=== PATIENT | female | born 1935 | race Caucasian/White ===

== ENCOUNTER → 2017-01-01 | Outpatient (CLI) | payer MEDICARE, MEDICAID ==
[~2017-01-01] MED LIST: ASPI81CH CHEW; ATOR80TA41 PO; CLOP75 PO; ECOT81TA2 PO; HCTZ25 PO; ISOS10TA3 PO; ISOS30 PO; KLOR20TA6 PO; LIPI80TA PO; LOSA100T PO; LOSA50 PO; METO25 PO; METO25TA3 PO; NITR.3 SL; NITR1SUB2 SL; PLAV75TA29 PO; POTA10TA8 PO; RANI150 PO; RANI150C PO; hydrodiuril PO
[2017-01-01 09:41] LABS: BICARBONATE 30.4 MEQ/L (21.0-32.0); POTASSIUM 4.3 MEQ/L (3.5-5.1)
== END ==
LOC: CLAB 08:34
PROVIDERS: ATTEND Internal Medicine Interventional Cardiology
DX: R60.9 Edema, unspecified (principal)
CPT/HCPCS: 36415; 80048

== ENCOUNTER 2017-02-20 22:49 | Observation (INO) | payer MEDICARE, MEDICAID ==
[~2017-02-20] VITALS: Ht 157.5 cm; Wt 86.3 kg
[~2017-02-20 22:49] MED LIST changes: -ASPI81CH CHEW; -ISOS10TA3 PO; -LIPI80TA PO; -LOSA100T PO; -METO25TA3 PO; -NITR1SUB2 SL; -PLAV75TA29 PO; -POTA10TA8 PO; -RANI150C PO; -hydrodiuril PO
[2017-02-20 22:52] VITALS: BP 158/72; PULSE 78; RESP 16; TEMP 98.2; O2SAT 97
[2017-02-20] MEDS ORDERED: ASPIRIN 81 MG CHEW TAB PO ONE (23:00)
[2017-02-20] MEDS ORDERED: SODIUM CHLORIDE 0.9% FLUSH 10 ML FLUSH IVF PRN (23:00)
--- NOTE | 2017-02-20 23:14 | PD ---
HPI Chief Complaint: Chest Pain Time Seen by Provider: 22:58 Travel History International Travel<30 days: No Contact w/Intl Traveler<30days: No Traveled to known affect area: No History of Present Illness HPI 81-year-old female with history of CAD with previous PCI to the mid LAD, HTN, HLD here with complaint of chest pressure. Patient states that today she is been having substernal chest pressure, heaviness with associated shortness of breath and nausea. She took 2 nitroglycerin around 7:30 and 8 PM without improvement of her symptoms prompting ER visit. At this time patient's pain is mild, intermittent. She states it feels similar to when she was hospitalized for her stent in May 2016. She continues to follow with Dr. hess. States that she has not had any provocative testing since her PCI in May 2016. PFSH Past Medical History Hx Anticoagulant Therapy: Yes Arthritis: Yes Asthma: No Autoimmune Disease: No Blood Disorders: No Anxiety: No Depression: No Heart Rhythm Problems: No Cancer: Yes (LEFT BREAST) Cardiovascular Problems: Yes (stent 06/03/16) High Cholesterol: No Chemotherapy: No Chest Pain: Yes Congestive Heart Failure: No COPD: Yes Diabetes: No Diminished Hearing: No Endocrine: No Gastrointestinal Disorders: Yes Genitourinary: Yes Hypertension: Yes Immune Disorder: No Implanted Vascular Access Dvce: Yes (cardiac stent) Kidney Stones: Yes Musculoskeletal: Yes Neurologic: No Psychiatric: No Reproductive: Yes (TOTAL HYSTERECTOMY) Respiratory: Yes Immunizations Current: No Myocardial Infarction: Yes ("SMALL ID YEARS AGO") Radiation Therapy: Yes Sleep Apnea: No Thyroid Disease: No Tetanus Vaccination: > 5 Years Influenza Vaccination: No Menopausal: Yes : 13 Para: 12 Miscarriage: 1 Dilation and Curettage (D&C): Yes Past Surgical History Abdominal Surgery: No AICD: No Arteriovenous Shunt: No Body Medical Devices: cardiac stent, bliateral lens implants Cardiac Surgery: Yes (angioplasty 06-03-16) Ear Surgery: No Endocrine Surgery: No Eye Surgery: Yes (BL CATARACT REMOVAL, BL LENSE IMPLANT) Genitourinary Surgery: No Gynecologic Surgery: Yes (TOTAL HYSTERECTOMY) Hysterectomy: Yes Insulin Pump: No Joint Replacement: No Mastectomy: Yes (L MASTECTOMY) Neurologic Surgery: No Oral Surgery: No Pacemaker: No Thoracic Surgery: Yes Other Surgery: Yes (L PARTIAL MASTECTOMY) Social History Alcohol Use: No Tobacco Use: No (uses snuff) Substance Use: No Allergies-Medications (Allergen,Severity, Reaction): Coded Allergies: Lisinopril (Verified Allergy, Mild, COUGH, 02/20/17) Reported Meds & Prescriptions Reported Meds & Active Scripts Active Nitrostat (Nitroglycerin) 0.3 Mg Subl 0.3 Mg SL PRN PRN FOR CHEST PAIN Zantac 150 Mg Tab (Ranitidine HCl) 150 Mg Tab 150 Mg PO BID K-Dur (Potassium Chloride) 20 Meq Tabcr 20 Meq PO BID Plavix (Clopidogrel Bisulfate) 75 Mg Tab 75 Mg PO DAILY Lipitor 80 Mg Tab (Atorvastatin) 80 Mg Tab 80 Mg PO HS Imdur 30 Mg (Isosorbide Mononitrate) 30 Mg Tabcr 30 Mg PO DAILY@07 30 Days Metoprolol Tartrate 25 mg (Metoprolol Tartrate) 25 Mg Tab 25 Mg PO Q12HR 30 Days Losartan Potassium 50 Mg Tab 100 Mg PO DAILY 30 Days Hydrodiuril (Hydrochlorothiazide) 25 Mg Tab 25 Mg PO DAILY 30 Days Ecotrin (Aspirin) 81 Mg Tabec 81 Mg PO DAILY 30 Days Review of Systems Except as stated in HPI: all other systems reviewed are Neg Physical Exam Narrative GENERAL: Elderly female in no acute distress SKIN: Focused skin assessment warm/dry. HEAD:Normocephalic. EYES: No scleral icterus. No injection or drainage. ENT: Mucous membranes pink and moist. NECK: Supple CARDIOVASCULAR: Regular rate and rhythm. No murmur appreciated. No tenderness to palpation of the chest wall RESPIRATORY: No accessory muscle use. Clear to auscultation. Breath sounds equal bilaterally. GASTROINTESTINAL: Abdomen soft, non-tender, nondistended. Obese MUSCULOSKELETAL: Trace BLE edema. NEUROLOGICAL: Awake and alert. Normal speech. PSYCHIATRIC: Appropriate mood and affect; insight and judgment normal. Data Data Last Documented VS Vital Signs Date Time Temp Pulse Resp B/P Pulse Ox O2 Delivery O2 Flow Rate FiO2 02/20/17 23:29 76 18 107/56 98 Room Air 02/20/17 22:52 98.2 Orders Electrocardiogram (02/20/17 23:00) Basic Metabolic Panel (Bmp) (02/20/17 23:00) Ckmb (Isoenzyme) Profile (02/20/17 23:00) Complete Blood Count With Diff (02/20/17 23:00) Magnesium (Mg) (02/20/17 23:00) Prothrombin Time / Inr (Pt) (02/20/17 23:00) Act Partial Throm Time (Ptt) (02/20/17 23:00) Troponin I (02/20/17 23:00) Chest, Single Ap (02/20/17 23:00) Ecg Monitoring (02/20/17 23:00) Bilateral Bp Monitoring (02/20/17 23:00) Iv Access Insert/Monitor (02/20/17:00) Oximetry (02/20/17 23:00) Aspirin Chew (Aspirin Chew) (02/20/17 23:00) Sodium Chloride 0.9% Flush (Ns Flush) (02/20/17 23:00) Nitroglycerin Sl (Nitrostat Sl) (02/20/17 23:15) Morphine Inj (Morphine Inj) (02/20/17 23:45) CKMB (02/20/17 23:10) CKMB% (02/20/17 23:10) Heparin Infusion LEO.Q1H (02/20/17 23:52) Heparin Inj (Heparin Inj) (02/21/17 00:00) Heparin Inj (Heparin Inj) (02/21/17 06:00) Heparin Inj (Heparin Inj) (02/21/17 06:00) Heparin-D5w Inj (Heparin-D5w Inj) (02/21/17 00:00) Cbc No Diff, Includes Plts (02/23/17 06:00) Act Partial Throm Time (Ptt) (02/21/17 06:52) Occult Blood (Hemoccult) Stool (02/20/17 23:52) Labs Laboratory Tests Test 02/20/17 23:10 White Blood Count 8.5 TH/MM3 Red Blood Count 4.15 MIL/MM3 Hemoglobin 12.9 GM/DL Hematocrit 38.0 % Mean Corpuscular Volume 91.4 FL Mean Corpuscular Hemoglobin 30.9 PG Mean Corpuscular Hemoglobin 33.9 % Concent Red Cell Distribution Width 13.6 % Platelet Count 188 TH/MM3 Mean Platelet Volume 8.5 FL Neutrophils (%) (Auto) 54.7 % Lymphocytes (%) (Auto) 32.6 % Monocytes (%) (Auto) 8.9 % Eosinophils (%) (Auto) 3.0 % Basophils (%) (Auto) 0.8 % Neutrophils # (Auto) 4.6 TH/MM3 Lymphocytes # (Auto) 2.8 TH/MM3 Monocytes # (Auto) 0.8 TH/MM3 Eosinophils # (Auto) 0.3 TH/MM3 Basophils # (Auto) 0.1 TH/MM3 CBC Comment DIFF FINAL Differential Comment Prothrombin Time 10.4 SEC Prothromb Time International 0.9 RATIO Ratio Activated Partial 26.4 SEC Thromboplast Time Sodium Level 141 MEQ/L Potassium Level 4.2 MEQ/L Chloride Level 104 MEQ/L Carbon Dioxide Level 29.4 MEQ/L Anion Gap 8 MEQ/L Blood Urea Nitrogen 31 MG/DL Creatinine 1.04 MG/DL Estimat Glomerular Filtration 51 ML/MIN Rate Random Glucose 96 MG/DL Calcium Level 9.0 MG/DL Magnesium Level 2.5 MG/DL Total Creatine Kinase 203 U/L Troponin I 0.06 NG/ML MDM Medical Decision Making Medical Screen Exam Complete: Yes Emergency Medical Condition: Yes Medical Record Reviewed: Yes Differential Diagnosis 81-year-old female with history of CAD with previous PCI to the mid LAD, HTN, HLD here with complaint of chest pain this evening, shortness of breath and nausea. Differential includes ACS, atypical chest pain, musculoskeletal, GERD, and less likely PE or dissection. Narrative Course Patient placed on monitor, IV established and blood obtained. A twelve-lead EKG shows sinus rhythm. Patient has T-wave inversions in leads 1, aVL, V4 through V6. This is similar to patient's previous EKG. She was given aspirin, nitroglycerin. Portable chest x-ray obtained that by my read shows no acute abnormalities. CBC, BMP, magnesium, CK-MB, troponin, coags notable for troponin 0.06. Patient still having pain after nitroglycerin 1, blood pressure drop. She was given morphine with improvement of her symptoms. Patient will be placed on heparin drip and admitted to medicine with cardiology consult for further management. Critical Care Narrative Aggregate critical care time was 35 minutes. Time to perform other separately billable procedures was not included in the critical care time. My time did not include minutes spent treating any other patients simultaneously or on activities that did not directly contribute to the patient's treatment. The services I provided to this patient were to treat and/or prevent clinically significant deterioration that could result in: Cardiopulmonary decompensation, , disability I provided critical care services requiring my management, as noted below: Chart data review, documentation time, medication orders and management, vital sign assessments/reviewing monitor data, ordering and reviewing lab tests, ordering and interpreting/reviewing x-rays and diagnostic studies, care of the patient and discussion of the patient with the admitting physicians. Diagnosis Primary Impression: Non-ST elevation ID (NSTEMI) Admitting Information Admitting Physician Requests: Admit Rosanna Ramirez MD February 20, 2017 23:14
[2017-02-20 23:23] VITALS: BP 131/74; PULSE 77; RESP 18; O2SAT 96
[2017-02-20] MEDS: NITROGLYCERIN 0.4 MG SL 25 TABS/BTL SL SCH ×3 (23:24→23:34)
[2017-02-20 23:29] VITALS: BP 107/56; PULSE 76; RESP 18; O2SAT 98
[2017-02-20 23:31] LABS: AUTOMATED NEUTROPHIL # 4.6 TH/MM3 (1.8-7.7); BASOPHIL # 0.1 TH/MM3 (0-0.2); BASOPHIL % 0.8 % (0.0-2.0); EOSINOPHIL # 0.3 TH/MM3 (0-0.4); HEMO FLAGS DIFF FINAL; LYMPH % 32.6 % (9.0-44.0); LYMPHOCYTE # 2.8 TH/MM3 (1.0-4.8); MEAN CELL VOLUME 91.4 FL (80.0-100.0); MEAN CORPUSCULAR HEMOGLOBIN 30.9 PG (27.0-34.0); MEAN CORPUSCULAR HGB CONC 33.9 % (32.0-36.0); MONO % 8.9 % (0.0-8.0); NEUT % 54.7 % (16.0-70.0); PLATELET COUNT 188 TH/MM3 (150-450); RED BLOOD COUNT 4.15 MIL/MM3 (4.00-5.30); RED CELL DISTRIBUTION WIDTH 13.6 % (11.6-17.2); WHITE BLOOD COUNT 8.5 TH/MM3 (4.0-11.0)
--- NOTE | 2017-02-20 23:32 | RADRPT ---
EXAM DATE/TIME: 02/20/2017 23:12 [facility] COMPARISON: CHEST SINGLE AP, June 02, 2016, 10:42. INDICATIONS : Chest pain. MEDICAL HISTORY : Hypertension. Myocardial infarction. Carcinoma, breast. COPD. SURGICAL HISTORY : Mastectomy, left. ENCOUNTER: Initial ACUITY: 1 day PAIN SCORE: 3/10 LOCATION: chest substernal. FINDINGS: A single view of the chest demonstrates the lungs to be symmetrically aerated without evidence of mas s, infiltrate or effusion. The cardiomediastinal contours are unremarkable. Osseous structures are intact. CONCLUSION: No acute disease. No significant change has occurred. Joaquín Chou MD on February 20, 2017 at 23:30 Board Certified Radiologist. This report was verified electronically.
[2017-02-20 23:45] LABS: APTT (PATIENT) 26.4 SEC (24.3-30.1); INTERNATIONAL NORMALIZED RATIO 0.9 RATIO; PROTHROMBIN TIME - PATIENT 10.4 SEC (9.8-11.6)
[2017-02-20] MEDS ORDERED: MORPHINE SULFATE 4 MG/ML INJ IV PUSH ONE (23:45)
[2017-02-20 23:47] LABS: BICARBONATE 29.4 MEQ/L (21.0-32.0); MAGNESIUM 2.5 MG/DL (1.5-2.5); POTASSIUM 4.2 MEQ/L (3.5-5.1)
[2017-02-21] VITALS (25 sets, daily range): BP systolic 120–150; BP diastolic 63–87; PULSE 58–70; RESP 16–18; TEMP 97.3–97.8; O2SAT 97–98
[2017-02-21] LABS: CKMB 2.5 NG/ML (0.5-3.6)
[2017-02-21] MEDS ORDERED: HEPARIN SODIUM - IV 10,000 UNITS/10 ML VIAL IV ONE
[2017-02-21] MEDS: HEPARIN-D5W INJ 250 ML IV SCH ×2 (00:16→22:21)
[2017-02-21] MEDS ORDERED: hydrodiuril PO (00:48)
[2017-02-21] MEDS ORDERED: LIPI80TA PO (00:48)
[2017-02-21] MEDS ORDERED: RANI150C PO (00:48)
[2017-02-21] MEDS ORDERED: NITR1SUB2 SL (00:48)
[2017-02-21] MEDS ORDERED: ISOS10TA3 PO (00:48)
[2017-02-21] MEDS ORDERED: PLAV75TA29 PO (00:48)
[2017-02-21] MEDS ORDERED: POTA10TA8 PO (00:48)
[2017-02-21] MEDS ORDERED: ASPI81CH CHEW (00:48)
[2017-02-21] MEDS ORDERED: LOSA100T PO (00:48)
[2017-02-21] MEDS ORDERED: METO25TA3 PO (00:48)
[2017-02-21] MEDS ORDERED: HEPARIN SODIUM - IV 10,000 UNITS/10 ML VIAL IV PRN ×2 (06:00)
[2017-02-21 06:42] LABS: APTT (PATIENT) 48.9 SEC (24.3-30.1)
[2017-02-21] MEDS: CLOPIDOGREL 75 MG TAB PO SCH (08:31)
[2017-02-21] MEDS: ASPIRIN 81 MG CHEW TAB CHEW SCH (08:31)
[2017-02-21] MEDS: FAMOTIDINE 20 MG TAB PO SCH (08:31)
[2017-02-21] MEDS: METOPROLOL TARTRATE 25 MG TAB PO SCH ×2 (08:31→21:30)
--- NOTE | 2017-02-21 08:43 | HHI.HP ---
[facility] Service [facility] Primary Care Physician Stefan Dewitt, DO Admission Diagnosis NSTEMI Diagnoses: Chief Complaint: chest pain (Tess Blancas) Travel History International Travel<30 Days: No Contact w/Intl Traveler <30 Da: No Traveled to Known Affected Are: No (Tess Blancas) History of Present Illness This a pleasant 81-year-old elderly female with past medical history of ME, CAD , previous angioplasty and stent to LAD May [address] hess, hypertension, hyperlipidemia, COPD. Patient presented to emergency room complaining of chest tightness had developed a she was resting. Patient indicates his throat over the left breast radiated across chest wall, she feels slightly short of breath and weak, no nausea, no vomiting, no diaphoresis. She took 2 nitroglycerin without any improvement and then was given a thorough 1. Chest discomfort was relieved by nitroglycerin. Patient indicates she had this similar presentation when she had stent in May 2016. She follows up with Dr. hess regularly and is compliant with medications. Patient was evaluated in the emergency room, laboratory workup was completed, essentially unremarkable. EKG shows sinus rhythm with T-wave inversions in leads 1, aVL, V4 through V6. This is similar to previous EKG. Chest x-ray did not reveal any acute abnormalities. Troponin was slightly elevated 0.06. Patient was placed on a heparin drip. Patient is now seen in [facility], at this time she is chest pain-free. Patient is admitted for further evaluation and treatment. ( Tess Blancas) Review of Systems Constitutional: DENIES: Diaphoretic episodes, Fatigue, Fever, Weight gain, Weight loss, Chills, Dizziness, Change in appetite, Night Sweats Endocrine: DENIES: Abnorml menstrual pattern, Heat/cold intolerance, Polydipsia , Polyuria, Polyphagia Eyes: DENIES: Blurred vision, Diplopia, Eye inflammation, Eye pain, Vision loss , Photosensitivity, Double Vision Ears, nose, mouth, throat: DENIES: Tinnitus, Hearing loss, Vertigo, Nasal discharge, Oral lesions, Throat pain, Hoarseness, Ear Pain, Running Nose, Epistaxis, Sinus Pain, Toothache, Odynophagia Respiratory: COMPLAINS OF: Shortness of breath, DENIES: Apneas, Cough, Snoring , Wheezing, Hemoptysis, Sputum production Cardiovascular: COMPLAINS OF: Chest pain, Dyspnea on Exertion, DENIES: Palpitations, Syncope, PND, Lower Extremity Edema, Orthopnea, Claudication Gastrointestinal: DENIES: Abdominal pain, Black stools, Bloody stools, Constipation, Diarrhea, Nausea, Vomiting, Difficulty Swallowing, Anorexia Genitourinary: DENIES: Abnormal vaginal bleeding, Dysmenorrhea, Dyspareunia, Sexual dysfunction, Urinary frequency, Urinary incontinence, Urgency, Hematuria , Dysuria, Nocturia, Vaginal discharge Musculoskeletal: COMPLAINS OF: Joint pain, DENIES: Muscle aches, Stiffness, Joint Swelling, Back pain, Neck pain Hematologic/lymphatic: DENIES: Bruising, Lymphadenopathy Immunologic/allergic: DENIES: Eczema, Urticaria Neurologic: DENIES: Abnormal gait, Headache, Localized weakness, Paresthesias, Seizures, Speech Problems, Tremor, Poor Balance Psychiatric: DENIES: Anxiety, Confusion, Mood changes, Depression, Hallucinations, Agitation, Suicidal Ideation, Homicidal Ideation, Delusions ( Tess Blancas) Past Family Social History Past Medical History hypertension hyperlipidemia breast cancer status post radiation and chemotherapy , CAD with ME, stent May 2016, arthritis COPD Past Surgical History Hysterectomy, right arm surgery, knee arthroplasty cardiac cath and angioplasty/stent FAROOQ to LAD 06/03/2017 Reported Medications Reported Meds & Active Scripts Active Reported Ranitidine (Ranitidine HCl) 150 Mg Cap 150 Mg PO DAILY Potassium Chloride CR (Potassium Chloride) 10 Meq Tab 20 Meq PO BID Nitroglycerin SL (Nitroglycerin) 0.3 Mg Subl 0.3 Mg SL DIRECTED PRN ONE TABLET UNDER THE TONGUE NEEDED FOR CHEST PAIN, MAY REPEAT EVERY FIVE MINUTES FOR A TOTAL OF 3 DOSES OR CALL 911 IF NO RELIEF Metoprolol Tartrate 25 Mg Tab 25 Mg PO BID Losartan (Losartan Potassium) 100 Mg Tab 100 Mg PO DAILY Isosorbide Mononitrate 10 Mg Tab 30 Mg PO DAILY Take 2 doses 7 hours apart. [hydrodiuril] 25 Mg PO DAILY Plavix (Clopidogrel Bisulfate) 75 Mg Tab 75 Mg PO DAILY Lipitor (Atorvastatin Calcium) 80 Mg Tab 80 Mg PO HS Aspirin 81 Mg Chew 81 Mg CHEW DAILY (Tess Blancas) Allergies: Coded Allergies: Lisinopril (Verified Allergy, Mild, COUGH, 02/20/17) Active Ordered Medications Inpatient Medications Aspirin (Aspirin Chew) 81 mg DAILY CHEW ; Start 02/21/17 at 09:00 Atorvastatin Calcium (Lipitor) 80 mg HS PO ; Start 02/21/17 at 21:00 Clopidogrel Bisulfate (Plavix) 75 mg DAILY PO ; Start 02/21/17 at 09:00 Famotidine (Pepcid) 20 mg DAILY PO ; Start 02/21/17 at 09:00 Heparin Sodium (Porcine) (Heparin Inj) 5,000 units UNSCH PRN IV APTT LESS THAN 25; Start 02/21/17 at 06:00 Heparin Sodium (Porcine) 2500 units 2,500 units UNSCH PRN IV APTT 25 TO 39; Start 02/21/17 at 06:00 Heparin Sodium/ Dextrose (Heparin-D5W Inj) 250 ml @ 0 mls/hr TITRATE IV Last administered on 02/21/17 00:16; Start 02/21/17 at 00:00 Metoprolol Tartrate (Lopressor) 25 mg BID PO ; Start 02/21/17 at 09:00 Morphine Sulfate (Morphine Inj) 4 mg ONCE ONCE IV PUSH Last administered on 00:02; Start 02/20/17 at 23:45; Stop 02/20/17 at 23:46; Status DC Nitroglycerin (Nitrostat Sl) 0.4 mg Q5M SL Last administered on 02/20/17 23:24 ; Start 02/20/17 at 23:15; Stop 02/20/17 at 23:26; Status DC Sodium Chloride (NS Flush) 2 ml UNSCH PRN IVF FLUSH AFTER USING IV ACCESS; Start 02/20/17 at 23:00 Family History Positive for coronary artery disease in her mother Social History Patient is raising her 7-year-old grandson, one of her daughters lives close by. Uses snuff since she was 7 years old, no alcohol abuse, no substance abuse. Uses a walker for ambulation. (Tess Blancas) Physical Exam Vital Signs Vital Signs Date Time Temp Pulse Resp B/P Pulse Ox O2 Delivery O2 Flow Rate FiO2 02/21/17 07:01 70 02/21/17 06:13 62 02/21/17 05:00 68 02/21/17 04:08 66 02/21/17 03:57 97.4 67 124/66 98 02/21/17 03:15 71 18 136/65 98 Nasal Cannula 2 02/21/17 02:14 61 18 120/63 98 Nasal Cannula 2 02/21/17 00:36 67 18 130/67 97 Nasal Cannula 2 02/20/17 23:29 76 18 107/56 98 Room Air 02/20/17 23:23 77 18 131/74 96 Room Air 02/20/17 22:52 98.2 78 16 158/72 97 Physical Exam GENERAL: This is a well-nourished, well-developed patient, in no apparent distress. SKIN: No rashes, ecchymoses or lesions. Cool and dry. HEAD: Atraumatic. Normocephalic. No temporal or scalp tenderness. EYES: Pupils equal round and reactive. Extraocular motions intact. No scleral icterus. No injection or drainage. ENT: Nose without bleeding, purulent drainage or septal hematoma. Throat without erythema, tonsillar hypertrophy or exudate. Uvula midline. Airway patent. NECK: Trachea midline. No JVD or lymphadenopathy. Supple, nontender, no meningeal signs. CARDIOVASCULAR: Regular rate and rhythm without murmurs, gallops, or rubs. RESPIRATORY: Clear to auscultation. Breath sounds equal bilaterally. No wheezes , rales, or rhonchi. GASTROINTESTINAL: Abdomen soft, non-tender, nondistended. No hepato-splenomegaly , or palpable masses. No guarding. MUSCULOSKELETAL: Extremities without clubbing, cyanosis, or edema. No joint tenderness, effusion, or edema noted. No calf tenderness. Negative Homans sign bilaterally. NEUROLOGICAL: Awake and alert. Cranial nerves II through XII intact. Motor and sensory grossly within normal limits. Five out of 5 muscle strength in all muscle groups. Normal speech. Laboratory Laboratory Tests Test 02/20/17 02/21/17 23:10 05:55 White Blood Count 8.5 Red Blood Count 4.15 Hemoglobin 12.9 Hematocrit 38.0 Mean Corpuscular Volume 91.4 Mean Corpuscular Hemoglobin 30.9 Mean Corpuscular Hemoglobin 33.9 Concent Red Cell Distribution Width 13.6 Platelet Count 188 Mean Platelet Volume 8.5 Neutrophils (%) (Auto) 54.7 Lymphocytes (%) (Auto) 32.6 Monocytes (%) (Auto) 8.9 Eosinophils (%) (Auto) 3.0 Basophils (%) (Auto) 0.8 Neutrophils # (Auto) 4.6 Lymphocytes # (Auto) 2.8 Monocytes # (Auto) 0.8 Eosinophils # (Auto) 0.3 Basophils # (Auto) 0.1 CBC Comment DIFF FINAL Differential Comment Prothrombin Time 10.4 Prothromb Time International 0.9 Ratio Activated Partial 26.4 48.9 Thromboplast Time Sodium Level 141 Potassium Level 4.2 Chloride Level 104 Carbon Dioxide Level 29.4 Anion Gap 8 Blood Urea Nitrogen 31 Creatinine 1.04 Estimat Glomerular Filtration 51 Rate Random Glucose 96 Calcium Level 9.0 Magnesium Level 2.5 Total Creatine Kinase 203 Creatine Kinase MB 2.5 Creatine Kinase MB % 1.2 Troponin I 0.06 (Tess Blancas) Result Diagram: 02/20/17230902/20/172309 Imaging Last Impressions Chest X-Ray 02/20/172299 Signed Impressions: Service Date/Time: Wednesday, February 20, 2017 23:12 - CONCLUSION: No acute disease. No significant change has occurred. Joaquín Chou MD (Tess Blancas) Assessment and Plan Problem List: (1) Chest pain (2) Non-ST elevation ME (NSTEMI) (3) HTN (hypertension) (4) Dyspnea on exertion (5) Hyperlipemia (6) Snuff user (7) COPD (chronic obstructive pulmonary disease) Assessment and Plan Admit to Dr. Del Cid 81-year-old elderly female with history of prior ME, CAD, prior stent to LAD May 2016. Presented to emergency room complaining of chest tightness with shortness of breath. Mild elevation in troponin. Admitted with non-STEMI -Continue with heparin drip Consult cardiology for evaluation Continue with aspirin and Plavix Continue with Lopressor 25 mg by mouth twice a day Continue with statins, Lipitor 80 mg by mouth daily at bedtime COPD, stable Continue with supplemental oxygen DuoNeb's when necessary for any wheezing Hypertension, stable Continue home medications Hyperlipidemia -Lipid profile has been ordered Continue statins Daily snuff use -patient has been counseled about use Home medications reviewed, initiated as indicated Continue with heparin for DVT prophylaxis Plan of care has been discussed with the patient, attending and registered nurse. Further management of the patient will be dependent on the hospital course This patient was seen by myself and Dr. Del Cid, this H&P is written on his behalf (Tess Blancas) Assessment and Plan Patient seen and examined as above Chart reviewed including meds labs radiological data and notes. Discussed with patient and patient's family at bedside in detail Plan of care discussed with ALEJO Condition guarded (Tammy Del Cid MD) Problem Qualifiers (1) Chest pain: Qualified Code: R07.2 - Precordial pain (2) HTN (hypertension): Qualified Code: I10 - Essential hypertension (3) Hyperlipemia: Qualified Code: E78.5 - Hyperlipidemia, unspecified hyperlipidemia type (4) COPD (chronic obstructive pulmonary disease): Qualified Code: J44.9 - Chronic obstructive pulmonary disease, unspecified COPD type Tess Blancas February 21, 2017 08:42 Tammy Del Cid MD February 21, 2017 09:21
[2017-02-21] MEDS ORDERED: RESP: ALBUTEROL 2.5 MG/IPRATROPIUM 0.5 MG NEB (PRN) NEB (08:45)
[2017-02-21 13:48] LABS: APTT (PATIENT) 56.8 SEC (24.3-30.1)
--- NOTE | 2017-02-21 14:02 | EC ---
Study Study Date:02/21/2017 STUDY CONCLUSIONS SUMMARY - Left ventricle: The cavity size was normal. Wall thickness was increased in a pattern of mild LVH. Systolic function was normal. The estimated ejection fraction was in the range of 55% to 60%. Wall motion was normal; there were no regional wall motion abnormalities. - Aortic valve: Valve area: 3.05cm^2 (Vmax). - Mitral valve: Mildly calcified annulus. If LV function is below 40, please consider prescribing an ACEI or ARB or document rationale for non-use. PROCEDURE DATA STUDY STATUS: Elective. Procedure: Transthoracic echocardiography. Image quality was adequate. Scanning was performed from the parasternal, apical, and subcostal acoustic windows. Study completion: The patient tolerated the procedure well. Transthoracic echocardiography. M-mode, complete 2D, complete spectral Doppler, and color Doppler. Height: Height: 62in. Weight: Weight: 184.6lb. Body mass index: BMI: 33.8kg/m^2. Body surface area: BSA: 1.85m^2. Patient status: Inpatient. CARDIAC ANATOMY LEFT VENTRICLE: The cavity size was normal. Wall thickness was increased in a pattern of mild LVH. Systolic function was normal. The estimated ejection fraction was in the range of 55% to 60%. Wall motion was normal; there were no regional wall motion abnormalities. AORTIC VALVE: Trileaflet; mildly thickened leaflets. Doppler: Transvalvular velocity was within the normal range. There was no stenosis. No regurgitation. Valve area: 3.05cm^2 (Vmax). Indexed valve area: 1.65cm^2/m^2 (Vmax). AORTA: Aortic root: The aortic root was normal in size. MITRAL VALVE: Mildly calcified annulus. Doppler: Transvalvular velocity was within the normal range. There was no evidence for stenosis. No regurgitation. Peak gradient: 3mm Hg (D). LEFT ATRIUM: The atrium was normal in size. RIGHT VENTRICLE: The cavity size was normal. Wall thickness was normal. PULMONIC VALVE: Doppler: Transvalvular velocity was within the normal range. There was no evidence for stenosis. No regurgitation. TRICUSPID VALVE: Structurally normal valve. Doppler: Transvalvular velocity was within the normal range. No regurgitation. PULMONARY ARTERY: The main pulmonary artery was normal-sized. Systolic pressure was within the normal range. RIGHT ATRIUM: The atrium was normal in size. PERICARDIUM: There was no pericardial effusion. Patient weight: 184.6lb _Ejection fraction:_ 65-75% _Fractional shortening:_ 32% up to 5Kg 5-11.5Kg 11.6-22.9Kg 23-45Kg 45-57Kg Aortic Root 7-13 <17 13-22 17-27 17-27 LA diam 6-13 <23 24-38 33-47 37-40 RVID 10-17 7-15 7-15 7-18 8-17 LVIDd 12-22 <32 24-38 33-47 37-40 LVPW 2-4 3-6 5-7 6-8 7-8 IVS 2-4 3-6 5-7 6-8 7-8 BASIC MEASUREMENTS ADULT NORMAL Left ventricle LV internal dimension, ED, chordal *42.2 mm 43-52 level, PLAX LV internal dimension, ES, chordal 34.3 mm 23-38 level, PLAX Fractional shortening, chordal level, *19 % >29 PLAX LV posterior wall thickness, ED 12.1 mm IVS/LVPW ratio, ED 0.99 <1.3 Ventricular septum Septal thickness, ED 12 mm Aortic valve Leaflet separation 23 mm 15-26 Aorta Ascending aorta anterior-posterior 39 mm diameter, S BASIC MEASUREMENTS ADULT NORMAL Aortic valve Leaflet separation 23 mm 15-26 Aorta Root diameter, ED 23 mm 20-37 Left atrium Anterior-posterior dimension, ES 36 mm 19-40 Anterior-posterior dimension index, ES 1.95 cm/m^2 <2.2 LA/aortic root ratio 1.57 DOPPLER MEASUREMENTS ADULT NORMAL Main pulmonary artery Pressure, S 26 mm Hg =30 Aortic valve Peak velocity, S 96.4 cm/s Valve area, Vmax 3.05 cm^2 Valve area index, Vmax 1.65 cm^2/m^2 Mitral valve Peak E-wave velocity 81.4 cm/s Peak A-wave velocity 64.2 cm/s Deceleration time 204 ms 150-230 Peak gradient, D 3 mm Hg Peak E/A ratio 1.3 Maximal regurgitant velocity 417 cm/s Tricuspid valve Regurgitant peak velocity 191 cm/s Peak RV-RA gradient, S 15 mm Hg Maximal regurgitant velocity 191 cm/s Systemic veins Estimated CVP 10 mm Hg Right ventricle RV pressure, S 28 mm Hg <30 Pulmonic valve Peak velocity, S 65.2 cm/s LEGEND: Mean values are shown as u=mean value. Asterisk (*) ashley values outside specified normal range. Prepared and signed by Sim Branham [id number]
--- NOTE | 2017-02-21 15:07 | EKG ---
Date Performed: 02/20/2017 Time Performed: 23:05:53 PTAGE: 81 years EKG: ECTOPIC ATRIAL RHYTHM ST DEVIATION AND MODERATE T-WAVE ABNORMALITY, CONSIDER LATERAL ISCHEM IA Possible left ventricular hypertrophy. Possible old inferior wall infarct. Possible old anterosept al infarct. When compared to previous tracing, the ectopic rhythm is new, But otherwise no significan t serial change. ABNORMAL ECG PREVIOUS TRACING : 06/06/2016 01.34.51 DOCTOR: China Cowan Interpretating Date/Time 02/21/2017 15:07:04
--- NOTE | 2017-02-21 15:59 | MB ---
cc: NICKY WHELAN OTAKAR MD DATE OF CONSULTATION: 02/21/2017 IMPRESSIONS: 1. Chest discomfort, rule out recurrent angina. The patient has a slight elevation in troponin and CPK. 2. Known atherosclerotic heart disease, history of LAD stent in May of 2016. 3. Hypertension. 4. Dyslipidemia. 5. Obesity. 6. Esophageal reflux disease. 7. History of breast cancer status post left mastectomy, unclear if she got radiation RECOMMENDATIONS: 1. The patient should be treated as acute coronary syndrome. She has been started on heparin. 2. Continue dual antiplatelet therapy. She has been started on metoprolol. 3. Will keep the patient n.p.o. tonight until seen by Dr. Elizabeth. She is pain-free at this time and has a normal exam. CLINICAL DATA: Mrs. Flores is an 81-year-old female with known coronary artery disease admitted to the hospital with chest discomfort. She apparently was sitting at home yesterday when she began to develop a pain in her left axillary area that eventually radiated across to her sternum. She had no definite diaphoresis, shortness of breat, , pyrosis. the total duration of the discomfort was proximally three hours. She took two sublingual nitroglycerin with partial relief of her chest discomfort however she was still having it when she presented the emergency room. Her EKG demonstrated asymmetric T-wave inversions in the lateral precordial leads. Her troponin was minimally elevated. She received a dose of morphine and has had no pain since that time. She has a history of acute coronary syndrome and possible NSTEMI in May culminating in cardiac catheterization and LAD stent. She states she is compliant with her medication. She does not smoke. Risk factors include hypertension and dyslipidemia. She has no history of diabetes. PAST SURGICAL HISTORY: Her past surgical history includes: 1. Left mastectomy for cancer. 2. Total hysterectomy. 3. She has had cataract surgery. SOCIAL HISTORY: She does not currently smoke or use alcohol. MEDICATIONS: Her medications at the time of admission to the hospital included: 1. Sublingual nitroglycerin. 2. Ranitidine 150 twice a day 3. Potassium chloride 20 twice a day. 4. Plavix 75 daily. 5. Atorvastatin 80 daily. 6. Isosorbide mononitrate 30 daily. 7. Metoprolol 25 twice a day. 8. Losartan 50 daily. 9. HydroDIURIL 25 daily. 10. Enteric coated baby aspirin. She has no history of congestive heart failure. She apparently has had cardiac arrhythmias in the past which have not required treatment. She has no history of pericardial heart disease. She has no history of seizure, stroke or TIA. She states that she does have COPD but does not require treatment. There is no history of overt GI bleeding. No history of liver, gallbladder or kidney disease. No history of thyroid disease. She has had no deficits or amaurosis fugax. No lower extremity edema claudication type symptoms. Her chest discomfort is completely resolved. She has had no recent febrile illness. PHYSICAL EXAMINATION: GENERAL: The physical exam this time demonstrates an alert oriented female in no apparent distress. VITAL SIGNS: Blood pressure 120/70, heart rate is 70 and regular. HEAD, EYES, EARS, NOSE, THROAT: Anicteric sclerae. NECK: Jugular venous pressures are normal. There are no carotid bruits. CHEST/LUNGS: She has clear lung vallecillo. CARDIAC: Distant heart sounds, regular rate and rhythm, 1/6 systolic ejection murmur. No diastolic murmurs or gallops. ABDOMEN: Abdomen soft and nontender. EXTREMITIES: Free of cyanosis, clubbing or edema. Normal pulses. LABORATORY EVALUATION: White cell count 8500, hematocrit 38%, platelet count 188,000. Lytes 141, 4.2, 104, 29, BUN 31, creatinine 1. Troponin 0.06, CPK 203. EKGS: 12-lead electrocardiogram demonstrates a normal sinus rhythm, LVH by voltage criteria, poor R-wave progression, embryonal R-wave in V2, asymmetric T-wave inversions are noted in the lateral precordial leads. IMAGING STUDIES: Chest x-ray is unremarkable. DISCUSSION: This is an 81-year-old female with known atherosclerotic heart disease, history of PCI in May admitted to hospital with chest discomfort, abnormal EKG and a slight increase in enzymes. Recommendations are as noted above. DO DAVON Clayton/JOSEPH /2:39 PM /3:43 PM
[2017-02-21] MEDS: ATORVASTATIN 80 MG TAB PO SCH (21:30)
[2017-02-22] VITALS (27 sets, daily range): BP systolic 135–152; BP diastolic 68–88; PULSE 58–84; RESP 16–18; TEMP 97.1–98; O2SAT 95–98
[2017-02-22 06:51] LABS: MEAN CELL VOLUME 91.6 FL (80.0-100.0); MEAN CORPUSCULAR HEMOGLOBIN 31.2 PG (27.0-34.0); MEAN CORPUSCULAR HGB CONC 34.1 % (32.0-36.0); PLATELET COUNT 201 TH/MM3 (150-450); RED BLOOD COUNT 4.37 MIL/MM3 (4.00-5.30); RED CELL DISTRIBUTION WIDTH 13.9 % (11.6-17.2); REVIEW FLAG FINAL; WHITE BLOOD COUNT 6.4 TH/MM3 (4.0-11.0)
[2017-02-22 07:06] LABS: HDL CHOLESTEROL 47.5 MG/DL (40.0-60.0)
[2017-02-22 07:12] LABS: APTT (PATIENT) 56.9 SEC (24.3-30.1)
[2017-02-22] MEDS: METOPROLOL TARTRATE 25 MG TAB PO SCH ×2 (08:09→21:04)
[2017-02-22] MEDS: FAMOTIDINE 20 MG TAB PO SCH (08:09)
[2017-02-22] MEDS: CLOPIDOGREL 75 MG TAB PO SCH (08:10)
[2017-02-22] MEDS: ASPIRIN 81 MG CHEW TAB CHEW SCH (08:10)
--- NOTE | 2017-02-22 13:46 | HHI.PR ---
Subjective Remarks Sitting on side of bed for lunch Walked to bathroom without shortness of breath or pain Alert oriented Afebrile Denies any chest pain or shortness of breath (Gabriela Chowdhury) Objective Objective Results - Vital Signs Date Time Temp Pulse Resp B/P Pulse Ox O2 Delivery O2 Flow Rate FiO2 02/22/17 11:15 97.5 68 18 135/73 95 02/22/17 08:15 97.6 63 18 139/71 97 02/22/17 06:00 60 02/22/17 05:00 74 02/22/17 04:00 73 02/22/17 03:00 97.4 73 16 135/69 98 02/22/17 03:00 66 02/22/17 02:00 70 02/22/17 01:00 60 02/22/17 00:00 97.1 74 18 146/88 98 02/22/17 00:00 74 02/21/17 23:00 60 02/21/17 22:00 66 02/21/17 21:00 70 02/21/17 20:00 70 02/21/17 19:00 97.5 68 18 138/72 98 02/21/17 19:00 68 02/21/17 16:01 68 02/21/17 15:10 97.8 66 18 150/87 97 02/21/17 15:00 62 02/21/17 14:00 64 I/O 02/21/17 02/21/17 02/21/17 02/22/17 02/22/17 02/22/17 07:00 15:00 23:00 07:00 15:00 23:00 Intake Total 240 ml 597 ml Output Total 700 ml Balance 240 ml -103 ml Intake Oral 240 ml 480 ml IV Total 117 ml Output Urine Total 700 ml # Voids 2 3 (Gabriela Chowdhury) Result Diagram: 02/22/17 0535 02/20/17 2310 ROS General: Fatigue (mild), Other (10 point ROS done positives noted other systems negative or unremarkable) Cardiac: Chest Pain (controlled) (Gabriela Chowdhury) Physical Exam Physical Exam PHYSICAL EXAMINATION GENERAL: This is a well-developed, obese female who appears to be in no acute distress. She is alert and awake, appropriate communication HEAD: Normocephalic without any lesion or mass noted. Facial features appear symmetric. OROPHARYNGEAL: Oropharynx without erythema or edema. NECK: Supple. No nuchal rigidity or lymphadenopathy. Trachea midline without deviation. CARDIAC: Regular rhythm, regular rate, S1 and S2 are heard. Heart sounds distant LUNGS: Clear to auscultation bilaterally anteriorly and posteriorly without wheezes rales or rhonchi ABDOMEN: Soft, round, nontender, no organomegaly or masses. Bowel sounds are heard in all four quadrants. No rebound. No guarding. EXTREMITIES: No edema. Pulses equal bilateral. NEUROLOGICAL: Patient mood and affect appropriate. No focal deficit SKIN:Warm and moist, dry Objective Remarks I had no chest pain since I got here, but this pain felt just like my other heart pain. (Gabriela Chowdhury) A/P Assessment and Plan 1) Chest pain (2) Non-ST elevation [place] (NSTEMI) (3) HTN (hypertension) (4) Dyspnea on exertion (5) Hyperlipemia (6) Snuff user (7) COPD (chronic obstructive pulmonary disease) Chest pain, non-STEMI -Continue with heparin drip, DVT prophylaxis and known coronary artery disease Cardiac consult done, patient maintained on heparin drip Heart catheter scheduled for tomorrow p.m., with possible stent O2 at 2 L as needed Activity out of bed to bathroom, no shortness of breath no pain since admission. Patient is tolerating activity with no problems Instructed to call immediately for any chest pain or shortness of breath COPD, stable, never smoked, but was around secondhand smoke, uses snuff DuoNeb's when necessary for any wheezing Hypertension, stable Continue home medications Hyperlipidemia Medical management Bowel regimen Pepcid for PUD prophylaxis Discussed with nurse Discussed with patient Discussed with Dr. Ely, patient seen on his behalf (Gabriela Chowdhury) Assessment and Plan pt is seen and examined as above meds and labs reviewed plan of care dw superintendent dw pt [facility] input for c cath tomorrow hopefully (Tammy Ely MD) Gabriela Chowdhury February 22, 2017 13:46 Tammy Ely MD February 22, 2017 14:56
--- NOTE | 2017-02-22 17:00 | PD.CARD.PN ---
Subjective Subjective Remarks No CP or SOB, feels better Objective Medications Current Medications Medications (Trade) Dose Ordered Sig/Billie Route Start Time Stop Time Status Last Admin (NS Flush) 2 ml UNSCH PRN IVF 02/20/17 23:00 (Heparin Inj) 5,000 units UNSCH PRN IV 02/21/17 06:00 Heparin Sodium (Porcine) 2500 units 2,500 units UNSCH PRN IV 02/21/17 06:00 (Heparin-D5W Inj) 250 ml @ 0 mls/hr TITRATE IV 02/21/17 00:00 02/21/17 22:21 (Aspirin Chew) 81 mg DAILY CHEW 02/21/17 09:00 02/22/17 08:10 (Lipitor) 80 mg HS PO 02/21/17 21:00 02/21/17 21:30 (Plavix) 75 mg DAILY PO 02/21/17 09:00 02/22/17 08:10 (Lopressor) 25 mg BID PO 02/21/17 09:00 02/22/17 08:09 (Pepcid) 20 mg DAILY PO 02/21/17 09:00 02/22/17 08:09 Vital Signs / I&O Vital Signs Date Time Temp Pulse Resp B/P Pulse Ox O2 Delivery O2 Flow Rate FiO2 02/22/17 15:15 98.0 75 18 146/87 96 02/22/17 13:01 66 02/22/17 12:00 68 02/22/17 11:15 97.5 68 18 135/73 95 02/22/17 11:00 58 02/22/17 10:00 64 02/22/17 09:00 66 02/22/17 08:15 97.6 63 18 139/71 97 02/22/17 08:00 58 02/22/17 07:00 58 02/22/17 06:00 60 02/22/17 05:00 74 02/22/17 04:00 73 02/22/17 03:00 97.4 73 16 135/69 98 02/22/17 03:00 66 02/22/17 02:00 70 02/22/17 01:00 60 02/22/17 00:00 97.1 74 18 146/88 98 02/22/17 00:00 74 02/21/17 23:00 60 02/21/17 22:00 66 02/21/17 21:00 70 02/21/17 20:00 70 02/21/17 19:00 97.5 68 18 138/72 98 02/21/17 19:00 68 I/O 02/21/17 02/21/17 02/21/17 02/22/17 02/22/17 02/22/17 06:59 14:59 22:59 06:59 14:59 22:59 Intake Total 240 ml 597 ml Output Total 700 ml Balance 240 ml -103 ml Intake Oral 240 ml 480 ml IV Total 117 ml Output Urine Total 700 ml # Voids 2 3 Physical Exam GENERAL: In NAD SKIN: Warm and dry. HEAD: Normocephalic. EYES: No scleral icterus. No injection or drainage. NECK: Supple, trachea midline. No JVD or lymphadenopathy. CARDIOVASCULAR: Regular rate and rhythm without murmurs, gallops, or rubs. RESPIRATORY: Breath sounds equal bilaterally. No accessory muscle use. GASTROINTESTINAL: Abdomen soft, non-tender, nondistended. MUSCULOSKELETAL: No cyanosis, or edema. Laboratory Laboratory Tests Test 02/21/17 02/22/17 17:10 05:35 Total Creatine Kinase 167 U/L Troponin I 0.06 NG/ML 0.12 NG/ML White Blood Count 6.4 TH/MM3 Red Blood Count 4.37 MIL/MM3 Hemoglobin 13.6 GM/DL Hematocrit 40.0 % Mean Corpuscular Volume 91.6 FL Mean Corpuscular Hemoglobin 31.2 PG Mean Corpuscular Hemoglobin 34.1 % Concent Red Cell Distribution Width 13.9 % Platelet Count 201 TH/MM3 Mean Platelet Volume 8.7 FL Activated Partial 56.9 SEC Thromboplast Time Triglycerides Level 131 MG/DL Cholesterol Level 188 MG/DL LDL Cholesterol 114 MG/DL HDL Cholesterol 47.5 MG/DL Cholesterol/HDL Ratio 3.95 RATIO Imaging Last Impressions Chest X-Ray 02/20/17 2300 Signed Impressions: Service Date/Time: Monday, February 20, 2017 23:12 - CONCLUSION: No acute disease. No significant change has occurred. Joaquín Chou MD Assessment and Plan Problem List: (1) Non-ST elevation [place] (NSTEMI) (2) CAD (coronary artery disease) (3) Presence of stent in LAD coronary artery (4) HTN (hypertension) (5) Hyperlipemia Assessment and Plan No recurrent angina. Enzymes abnormal, c/w NSTEMI. Proceed with cath/PCI tomorrow. D/w pt and family, they wish to proceed. Problem Qualifiers (1) HTN (hypertension): Qualified Code: I10 - Essential hypertension (2) Hyperlipemia: Qualified Code: E78.5 - Hyperlipidemia, unspecified hyperlipidemia type Nai Elizabeth MD February 22, 2017 16:59
[2017-02-22] MEDS: ATORVASTATIN 80 MG TAB PO SCH (21:04)
[2017-02-23] VITALS (25 sets, daily range): BP systolic 130–158; BP diastolic 57–88; PULSE 58–92; RESP 18–20; TEMP 97.6–97.8; O2SAT 94–97
[2017-02-23 04:15] LABS: HEMATOCRIT 40.4 % (35.0-46.0); MEAN CORPUSCULAR HEMOGLOBIN 31.3 PG (27.0-34.0); MEAN CORPUSCULAR HGB CONC 34.4 % (32.0-36.0); PLATELET COUNT 177 TH/MM3 (150-450); RED BLOOD COUNT 4.44 MIL/MM3 (4.00-5.30); RED CELL DISTRIBUTION WIDTH 13.8 % (11.6-17.2); REVIEW FLAG FINAL; WHITE BLOOD COUNT 7.7 TH/MM3 (4.0-11.0)
[2017-02-23 04:25] LABS: APTT (PATIENT) 50.4 SEC (24.3-30.1)
[2017-02-23] MEDS: FAMOTIDINE 20 MG TAB PO SCH (08:17)
[2017-02-23] MEDS: METOPROLOL TARTRATE 25 MG TAB PO SCH ×2 (08:17→21:57)
[2017-02-23] MEDS: CLOPIDOGREL 75 MG TAB PO SCH (08:17)
[2017-02-23] MEDS: ASPIRIN 81 MG CHEW TAB CHEW SCH (08:18)
--- NOTE | 2017-02-23 09:12 | HHI.PR ---
Subjective Remarks Sitting on chair without any apparent distress patient had good night sleep Walked to bathroom without shortness of breath or pain Alert oriented Afebrile Denies any chest pain or shortness of breath review of systems a 12 point system otherwise unremarkable Objective Objective Results - Vital Signs Date Time Temp Pulse Resp B/P Pulse Ox O2 Delivery O2 Flow Rate FiO2 02/23/17 08:01 97.6 78 18 140/81 96 02/23/17 07:01 62 02/23/17 06:00 67 02/23/17 05:00 72 02/23/17 04:00 92 02/23/17 03:00 97.8 78 18 151/81 97 02/23/17 03:00 66 02/23/17 02:00 68 02/23/17 01:00 66 02/23/17 00:00 58 02/22/17 23:00 97.9 70 16 143/68 96 02/22/17 23:00 64 02/22/17 22:00 74 02/22/17 21:00 76 02/22/17 20:00 84 02/22/17 19:00 72 02/22/17 19:00 97.4 77 16 152/83 97 02/22/17 18:00 64 02/22/17 17:01 68 02/22/17 16:00 78 02/22/17 15:15 98.0 75 18 146/87 96 02/22/17 15:00 68 02/22/17 14:00 74 02/22/17 13:01 66 02/22/17 12:00 68 02/22/17 11:15 97.5 68 18 135/73 95 02/22/17 11:00 58 02/22/17 10:00 64 I/O 02/22/17 02/22/17 02/22/17 02/23/17 02/23/17 02/23/17 06:59 14:59 22:59 06:59 14:59 22:59 Intake Total 939 ml 350 ml Output Total 600 ml 800 ml Balance 339 ml -450 ml Intake Oral 720 ml 240 ml IV Total 219 ml 110 ml Output Urine Total 600 ml 800 ml # Voids 3 4 # Bowel Movements 0 Result Diagram: 02/23/17 0356 02/20/172309 Imaging Last Impressions Chest X-Ray 02/20/17 2300 Signed Impressions: Service Date/Time: Monday, February 20, 2017 23:12 - CONCLUSION: No acute disease. No significant change has occurred. Joaquín Chou MD Other Results Laboratory Tests Test 02/23/17 03:56 White Blood Count 7.7 Red Blood Count 4.44 Hemoglobin 13.9 Hematocrit 40.4 Mean Corpuscular Volume 91.0 Mean Corpuscular Hemoglobin 31.3 Mean Corpuscular Hemoglobin 34.4 Concent Red Cell Distribution Width 13.8 Platelet Count 177 Mean Platelet Volume 8.4 Activated Partial 50.4 Thromboplast Time Physical Exam Physical Exam GENERAL: This is a well-developed, obese female who appears to be in no acute distress. She is alert and awake, appropriate communication HEAD: Normocephalic without any lesion or mass noted. Facial features appear symmetric. OROPHARYNGEAL: Oropharynx without erythema or edema. NECK: Supple. No nuchal rigidity or lymphadenopathy. Trachea midline without deviation. CARDIAC: Regular rhythm, regular rate, S1 and S2 are heard. Heart sounds distant LUNGS: Clear to auscultation bilaterally anteriorly and posteriorly without wheezes rales or rhonchi ABDOMEN: Soft, round, nontender, no organomegaly or masses. Bowel sounds are heard in all four quadrants. No rebound. No guarding. EXTREMITIES: No edema. Pulses equal bilateral. NEUROLOGICAL: Patient mood and affect appropriate. No focal deficit SKIN:Warm and moist, dry Objective Remarks I had no chest pain since I got here, but this pain felt just like my other heart pain A/P Assessment and Plan (1) Chest pain (2) Non-ST elevation [place] (NSTEMI) (3) HTN (hypertension) (4) Dyspnea on exertion (5) Hyperlipemia (6) Snuff user (7) COPD (chronic obstructive pulmonary disease) Chest pain, non-STEMI -heparin drip, DVT prophylaxis and known coronary artery disease Cardiac consult done, patient maintained on heparin drip Heart catheter scheduled for today afternoon O2 at 2 L as needed Activity out of bed to bathroom, no shortness of breath no pain since admission. Patient is tolerating activity with no problems Instructed to call immediately for any chest pain or shortness of breath COPD, stable, never smoked, but was around secondhand smoke, uses snuff DuoNeb's when necessary for any wheezing Hypertension, stable Continue home medications Hyperlipidemia Medical management Bowel regimen Pepcid for PUD prophylaxis Labs reviewed Discussed with nurse Discussed with patient We will follow Tammy Ely MD February 23, 2017 09:11
[2017-02-23] MEDS ORDERED: MIDAZOLAM HCL 5 MG/5 ML VIAL ONE (14:34)
[2017-02-23] MEDS ORDERED: HEPARIN-NS/PF INJ 500 ML ONE (14:34)
[2017-02-23] MEDS ORDERED: SODIUM CHLOR 0.9% 1000 ML INJ 500 ML IV SCH (15:06)
--- NOTE | 2017-02-23 15:20 | CATHPROC ---
Patient Name: PARMINDER CRAIG Study #: [id number] Initial MD: Nai Elizabeth Date of : 1935 Study Date: 02/23/2017 Cardiac Catheterization Report 02/23/2017 3:20:13 PM Financial #: [id number] 1 of 10 Patient Name: PARMINDER CRAIG Study #: [id number] Initial MD: Nai Elizabeth Date of : 1935 Study Date: 02/23/2017 Entire Case Report Patient Information Patient Name PARMINDER CRAIG Date of 1935 Age 81 years Financial # [id number] Gender F AlternateID Lab Number 3 Accession # Room Number Height (in) 62.0 Height (cm) 157.4 BSA 1.87 Weight (lbs) 188.5 Weight (kg) 85.7 Patient Address/Phone Number Home Address [facility] Home Phone Number [phone] [facility] [id number] Study Information Study Number Admission Scheduled Start Study Start 950-17 02/21/2017 02/23/2017 02/23/2017 Study Type Left Heart Cath Referring Institution Admit Source Facility Department 1 Other [facility] - [employer] Physician and Clinical Staff Initial Nai Bee Doughnut Icer Machine Toby Cheung,RN Doughnut Icer Machine Vanessa Jeffers,ALEXIS Other cathlab, cathlab Recorder Vandana Gonzáles,ROOFING TILE SORTER TECH2 Scrub Ermias Burciaga,RT(R) Procedures Performed Procedure Location (Site) Vessel Name Angiogram LV LV Ventricle Coronary Angiograms LCA Left Coronary Coronary Angiograms RCA Right Coronary L Heart Cath 02/23/2017 3:20:13 PM Financial #: [id number] 2 of 10 Patient Name: PARMINDER CRAIG Study #: [id number] Initial MD: Nai Elizabeth Date of : 1935 Study Date: 02/23/2017 Equipment Time Australian Rules Footballer Description Size Mfg Part Number Used/Scraped TRANSDUCER, TRUWAVE 14:48 RAMIREZ CHATTERJEE * [id number] Used W/AYE [id number] *[id number] [id number] *[id number] [id number] *[id number] 14:48 MEDLINE INDUSTRIES PACK, CCL CUSTOM * Used *[id number] 14:48 MEDLINE PACER PEN, SKIN DUAL W/ RULER * [id number] Used 14:48 [employer] MEDICAL WIRE, 3MMJ .035 180CM 180CM [id number] Used PROBE COVER, STERILE 14:48 [employer] MEDICAL * [id number] Used ULTRASOUND W/ GEL [id number] 14:48 NAMIC MANIFOLD, 4 PORT * Used *[id number] 14:48 NAMIC TUBING, HIGH PRESSURE 48" 48" Used *[id number] 14:48 NYCOMED OMNIPAQUE, 350 MG, 100ML 100ML [id number] Used 14:54 NYCOMED OMNIPAQUE, 350 MG, 50ML 50ML [id number] Used [id number] 14:48 CASIANO MEDICAL BLANKET,WARM AIR CCL * Used *[id number] 14:48 TERUMO MEDICAL SHEATH, FR5 TERUMO (10CM) FR 5 [id number] Used Insurance Information Insurance Payor Medicaid, Private Health Insurance Third Republican Third Republican Number UNITED HEALTHCARE UHCMCR MEDICARE History: Current Medications Medication Dosage/Unit Route Frequency Last Date/Time Taken PLAVIX LIPITOR ASA History: Allergies Allergy Reaction Lisinopril COUGH 02/23/2017 3:20:13 PM Financial #: [id number] Patient Name: PARMINDER CRAIG Study #: [id number] Initial MD: Nai Elizabeth Date of : 1935 Study Date: 7 History: Risk Factors Family History of Hypertension Dyslipidemia Previous PA Previous Heart Failure Premature CAD Yes Yes Yes Yes No Prior Valve Prior PCI Prior PCIDate Prior CABG Surgery No Yes 06/03/2016 No Cerebrovascular Peripheral Artery Chronic Lung On Dialysis Diabetes Disease Disease Disease No No No Yes No History: Symptoms/Diagnosis Selection Items Chest pain Labs Hgb (g/dl) Hct (%) WBC (l/cumm) Platelets (thousands) 12.00-18.00 37.00-55.00 4.80-10.80 140.00-450.00 13.9 40.4 7.7 177 Glucose (mg/dl) BUN (mg/dl) Creatinine (mg/dl) BUN:Creatinine (1:x) 60.00-110.00 8.00-20.00 0.10-9.00 10.00-20.00 96 31 1.0 31 Na (meq/l) K (meq/l) 138.00-146.00 3.80-5.10 141 4.2 INR (PTT:PT) 0.50-2.00 0.9 Troponin I (ng/ml) CPK (u/l) 0.40-2.30 37.00-289.00 0.1 167 Medication Medication Total Dose (Bolus/Oral) Medication Total Dosage/Unit 1% XYLOCAINE 20 mL FENTANYL 100 mcg VERSED 2 mg 02/23/2017 3:20:13 PM Financial #: [id number] Patient Name: PARMINDER CRAIG Study #: [id number] Initial MD: Nai Elizabeth Date of : 1935 Study Date: 017 Medications (Bolus/Oral) Medication Time Given Dosage/Unit Administered By Reason VERSED 02/23/2017 2:43:15 PM 2 mg Vanessa Jeffers 2 mg VERSED given in lab by Vanessa Jeffers RN in Right Antecubital via Peripheral IV. FENTANYL 02/23/2017 2:44:00 PM 50 mcg Vanessa Jeffers 50 mcg FENTANYL given in lab by Vanessa Jeffers RN in Right Hand via Peripheral IV. FENTANYL 02/23/2017 2:44:57 PM 50 mcg Vanessa Jeffers Patient arrived on 50 mcg FENTANYL given by Vanessa Jeffers RN in Right Antecubital via Peripheral I V. 1% XYLOCAINE 02/23/2017 2:49:18 PM 20 mL Nai Elizabeth 20 mL 1% XYLOCAINE given in lab by Nai Elizabeth in Right Groin via Subcutaneous. Medication (Drip) Medication Time Given Dosage/Unit Concentration/Unit Diluent (ml) Solution IV Solutions 02/23/2017 2:32:02 PM 0 mL (IV) NaCl .9 Patient arrived on IV Solutions given by Nai Elizabeth in Right Antecubital via Peripheral IV. Pump /Drip Flow = 20 ml/hr using NaCl .9. Initial Case Assessment Cardiovascular HR NIBP 64 122/111 Edema Present Skin color Skin None Normal Warm Dry Circulatory - Right Pulses Dorsalis Pedis Femoral 1 1 Scale (0,1,2,3,4,d) Circulatory - Left Pulses Dorsalis Pedis Femoral 1 1 Scale (0,1,2,3,4,d) Neurological State Oriented to time-place- Alert Moves all extremities person Respiration - General Respiration Rate SpO2 (%) (B/min) 13 98 02/23/2017 3:20:13 PM Financial #: [id number] 5 of 10 Patient Name: PARMINDER CRAIG Study #: [id number] Initial MD: Nai Elizabeth Date of : 1935 Study Date: 02/23/2017 Final Case Assessment Cardiovascular HR NIBP 70 159/84 Edema Present Skin color Skin None Normal Warm Dry Circulatory - Right Pulses Dorsalis Pedis Femoral 1 1 Scale (0,1,2,3,4,d) Circulatory - Left Pulses Dorsalis Pedis Femoral 1 1 Scale (0,1,2,3,4,d) Neurological State Oriented to time-place- Alert Moves all extremities person Respiration - General Respiration Rate SpO2 (%) (B/min) 13 98 Vitals Summary Pain Time HR NIBP SpO2 Resp Temp EtCO2 Apnea Francisco Grant Comment Level 14:34:52 64 122/111 98.0 10 0 2 14:40:28 106 168/97 97.0 13 10 0 2 14:45:04 70 148/84 96.0 17 10 0 2 14:50:01 72 108/76 97.0 16 10 0 2 14:55:23 70 174/89 99.0 19 10 0 2 15:00:05 73 154/83 98.0 15 10 0 2 15:05:00 69 160/88 98.0 14 10 0 2 15:10:03 64 162/88 98.0 17 10 0 2 15:15:05 67 159/84 98.0 15 10 0 2 02/23/2017 3:20:13 PM Financial #: [id number] 6 of 10 Patient Name: PARMINDER CRAIG Study #: [id number] Initial MD: Nai Elizabeth Date of : 1935 Study Date: 02/23/2017 Francisco Score Summary Time Activity Resp Circ LOC Color Total Score 14:34:52 2 2 2 2 2 10 14:40:28 2 2 2 2 2 10 14:45:04 2 2 2 2 2 10 14:50:01 2 2 2 2 2 10 14:55:23 2 2 2 2 2 10 15:00:05 2 2 2 2 2 10 15:05:00 2 2 2 2 2 10 15:10:03 2 2 2 2 2 10 15:15:05 2 2 2 2 2 10 Francisco Score Definition Table Activity - 0 Activity - 1 Activity - 2 No Movement to Command Weak Hand Grasp Lift Head, Good Hand Grasp Respiration - 0 Respiration - 1 Respiration - 2 Apneic or Obstructed Shallow Breath, Airway Adjunct Deep Breath, Cough Freely Circulation - 0 Circulation - 1 Circulation - 2 B/P > 50% Admission B/P B/P > 20-50% Admission B/P B/P Stable X3 Level of Consciousness - 0 Level of Consciousness - 1 Level of Consciousness - 2 Not Responding Arousable On Calling Awake and Aware Color - 0 Color- 1 Color - 2 Cyanotic Lips, Nailbed, Skin Pale, Dusky [place] Or Normal Chronological Log Time Study Chronological Log 14:31:49 Patient arrived via Bed. 14:31:51 Patient Name, D.O.B, / Armband Verified By R.N. 14:31:52 Consent signed by the physician and the patient and verified by the [employer] staff. 14:31:53 Pre-op and post- op instructions given; patient acknowledges understanding of instruction s. 14:31:55 Patient has been NPO for More than 6Hrs. 14:31:56 Skin Breakdown- 14:31:58 Paige Prominences Protected 14:32:01 A # 20 IV was noted in the Antecubital (right). Grade = 0 Patient arrived on IV Solutions given by Nai Elizabeth in Right Antecubital via Peripheral IV. Pump/Drip Flow = 20 14:32:02 ml/hr using NaCl .9. 14:32:04 History and physical on the chart or being dictated. Vitals capture started with the following parameters, Patient=Adult, Interval=5 min, Initial Kblixfak=718 mmHg, 14:34:22 Deflation Rate=5 mmHg 02/23/2017 3:20:13 PM Financial #: [id number] Patient Name: PARMINDER CRAIG Study #: [id number] Initial MD: Nai Elizabeth Date of : 1935 Study Date: 02/23/2017 14:34:52 HR=64 bpm, MXLB=196/111 mmhg, SpO2=98 %, Pain=0, Francisco=10, Grant=2 Assessment: Initial Case, HR=64 BPM, YGCM=292/111 mmhg, Edema=None, Color=Normal, Skin = Warm, Dry Right Pulses: Bonifacio Ped=1, Femoral=1 14:39:15 Left Pulses: Bonifacio Ped=1, Femoral=1 Neurological: State=Alert, Ox3, DENNY Respiration: Resp=13 B/min, SpO2=98 % 14:40:28 XC=623 bpm, VUWE=946/97 mmhg, SpO2=97.0 %, Resp=13 B/min, Pain=0, Francisco=10, Grant=2 14:43:15 2 mg VERSED given in lab by Vanessa Jeffers RN in Right Antecubital via Peripheral IV. 14:43:36 Reference ECG taken 14:43:43 Bilateral groins prepped with 2% chlorhexidine, and with a 3 min. waiting time. 14:44:00 50 mcg FENTANYL given in lab by Vanessa Jeffers RN in Right Hand via Peripheral IV. 14:44:57 Patient arrived on 50 mcg FENTANYL given by Vanessa Jeffers, ALEXIS in Right Antecubital via Pe ripheral IV. 14:45:04 HR=70 bpm, NDOS=771/84 mmhg, SpO2=96.0 %, Resp=17 B/min, Pain=0, Francisco=10, Grnat=2 Time Out. Correct patient, correct procedure,correct physician, ,power injector loaded or not l oaded with contrast with 14:46:31 surgical team present. Time Out Concurred by MD, individual staff and ROUTE CDL DRIVER in procedure 14:46:46 Case Start 14:46:47 Pressure channel 1 zeroed. 14:49:18 20 mL 1% XYLOCAINE given in lab by Nai Elizabeth in Right Groin via Subcutaneous. 14:49:30 Access site was Left Femoral Artery. 14:50:00 A SHEATH, FR5 TERUMO (10CM) FR 5 was advanced into the Fem Art (right) using the Modified S eldinger technique. 14:50:00 A PIGTAIL ANG. INFINITI CATHETER FR 5 was advanced over a wire. contrast was used for injec tions. 14:50:01 HR=72 bpm, QZHM=193/76 mmhg, SpO2=97.0 %, Resp=16 B/min, Pain=0, Francisco=10, Grant=2 Recorded Pressure: LV, HR=86, Condition=Condition 1 14:50:03 (Left Ventricle) LV 149/14/16 14:50:45 The LV was injected at 10 cc/sec for a total of 30. OMNIPAQUE, 350 MG, 50ML 50ML used. Recorded Pressure: LV, Ao, HR=78, Condition=Condition 1 14:51:25 (Left Ventricle) LV 141/18/14, (Aorta) Ao 143/55/94 14:51:25 Catheter was removed A JL 4.0 INFINITI CATHETER FR 5 was advanced over a wire. OMNIPAQUE, 350 MG, 100ML 100ML was us ed for 14:51:55 injections. Recorded Pressure: Ao, HR=68, Condition=Condition 1 14:53:45 (Aorta) Ao 170/71/111 14:53:54 The LCA was injected and visualized at various angles. OMNIPAQUE, 350 MG, 100ML 100ML used . 14:55:07 Catheter was removed A JL 4.0 INFINITI CATHETER FR 5 was advanced over a wire. OMNIPAQUE, 350 MG, 100ML 100ML was us ed for 14:55:22 injections. 14:55:23 HR=70 bpm, TEAZ=202/89 mmhg, SpO2=99.0 %, Resp=19 B/min, Pain=0, Francisco=10, Grant=2 14:56:35 The RCA was injected and visualized at various angles. OMNIPAQUE, 350 MG, 100ML 100ML used . 14:56:49 Catheter was removed 14:56:52 Case End 14:57:29 ACT (Normal Range 90-180) = 177 15:00:05 HR=73 bpm, OWZQ=522/83 mmhg, SpO2=98 %, Resp=15 B/min, Pain=0, Francisco=10, Grant=2 02/23/2017 3:20:13 PM Financial #: [id number] 8 of 10 Patient Name: PARMINDER CRAIG Study #: [id number] Initial MD: Nai Elizabeth Date of : 1935 Study Date: 02/23/2017 15:01:05 Sheath removed; pressure applied to access site. 15:05:00 HR=69 bpm, KGMP=114/88 mmhg, SpO2=98 %, Resp=14 B/min, Pain=0, Francisco=10, Grant=2 15:10:03 HR=64 bpm, XNYD=231/88 mmhg, SpO2=98 %, Resp=17 B/min, Pain=0, Francisco=10, Grant=2 15:15:05 HR=67 bpm, IMEE=708/84 mmhg, SpO2=98.0 %, Resp=15 B/min, Pain=0, Francisco=10, Grant=2 Assessment: Final Case, HR=70 BPM, CCUQ=943/84 mmhg, Edema=None, Color=Normal, Skin = Warm, Dr y Right Pulses: Bonifacio Ped=1, Femoral=1 15:16:45 Left Pulses: Bonifacio Ped=1, Femoral=1 Neurological: State=Alert, Ox3, DENNY Respiration: Resp=13 B/min, SpO2=98 % 15:17:06 Vitals capture stopped. 15:17:38 Sterile dressing applied to site 15:17:42 No case complications noted. 15:17:52 Cine recording checked. 15:17:56 Bedside Report will be given. 15:17:57 Contrast Scanned 15:18:01 A Left Heart Cath was performed. 15:19:01 Patient moved to stretcher 15:19:12 Clinical correlaton risk stratification. Recorded Pressures: Condition 1 Time Chamber Pressure Manual Override (*) 14:50:03 LV 149/14/16 s/bd/ed 14:51:25 LV 141/18/14 s/bd/ed 14:51:25 Ao 143/55/94 s/d/m 14:53:45 Ao 170/71/111 s/d/m End Study - Contrast Media Used In Study Contrast Total Opened (mL) Total Used (mL) Total Wasted (mL) Omnipaque 80 80 0 End Study - Maximum Contrast Load Max Contrast Load (mL) 428.4 End Study - Radiation Exposure Fluoro Time (minutes) 1.5 02/23/2017 3:20:13 PM Financial #: [id number] Patient Name: PARMINDER CRAIG Study #: [id number] Initial MD: Nai Elizabeth Date of : 1935 Study Date: 02/23/2017 End Study - Patient Disposition Complications Transferred To No Telemetry Bed 02/23/2017 3:20:13 PM Financial #: [id number]
[2017-02-23] MEDS ORDERED: IOHEXOL 350 MG/ML 100 ML BTL (for Cath Lab) OTHER ONE (16:23)
[2017-02-23 16:34] LABS: HDL CHOLESTEROL 46.3 MG/DL (40.0-60.0)
--- NOTE | 2017-02-23 19:55 | MA ---
cc: CCList DATE: 02/23/[address] elevation myocardial infarction, class IV angina, coronary artery disease, history of mid LAD stenting. PROCEDURE PERFORMED 1. Retrograde left heart catheterization with left ventriculography and selective coronary angiography. 2. Moderate sedation. ACCESS SITE Right femoral artery. EQUIPMENT USED 5 Swazi pigtail catheter, 5 Swazi JL4 and AR modified coronary artery catheters. MEDICATIONS Versed IV, Fentanyl IV. CONTRAST Omnipaque 80 cc. COMPLICATIONS None. BLOOD LOSS: Less than 10 cc METHOD OF HEMOSTASIS Manual compression. RESULTS HEMODYNAMICS Heart rate 70 beats per minute. Left ventricular end-diastolic pressure 14 mmHg. Left ventricle 150/4. Aorta 150/71/111. LEFT VENTRICULOGRAPHY Left ventricular ejection fraction 60%. Wall motion normal. No mitral regurgitation. CORONARY ANGIOGRAPHY The left main coronary artery patent. Left descending coronary artery has mild 30% stenosis in the mid portion. There is patent stent in the mid portion. First diagonal artery has 60% stenosis at its ostium and in the proximal portion. Left circumflex artery is patent. OM1 is patent. OM2 and left PDA is patent. Right coronary artery is small and patent. Right PDA is small and patent. This is co-dominant circulation. DIAGNOSIS 1. Mild to moderate coronary artery disease with patent stent in the mid left anterior descending coronary artery. 2. Preserved left ventricular systolic function. DISPOSITION Ms. Flores can be reassured about her cardiac status. Her stent in the mid LAD is patent and the study shows no evidence of disease progression. Her left ventricular function is well preserved. I recommend to continue her current medical program including aggressive modification in her cardiac risk factors. I will see her back for followup in our office after discharge. MD JOSE Malcolm/LEVON /3:07 PM /7:18 PM KELLEN
[2017-02-23] MEDS: ATORVASTATIN 80 MG TAB PO SCH (21:56)
[2017-02-24] VITALS (15 sets, daily range): BP systolic 129–139; BP diastolic 71–74; PULSE 62–78; RESP 18; TEMP 97.5–97.8; O2SAT 96–98
[2017-02-24] MEDS: CLOPIDOGREL 75 MG TAB PO SCH (08:36)
[2017-02-24] MEDS: ASPIRIN 81 MG CHEW TAB CHEW SCH (08:37)
[2017-02-24] MEDS: FAMOTIDINE 20 MG TAB PO SCH (08:37)
[2017-02-24] MEDS: METOPROLOL TARTRATE 25 MG TAB PO SCH (08:37)
--- NOTE | 2017-02-24 13:21 | HHI.PR ---
Subjective Remarks Sitting on side of bed Alert oriented Afebrile Denies any chest pain or shortness of breath cardiac w/u neg Objective Objective Results - Vital Signs Date Time Temp Pulse Resp B/P Pulse Ox O2 Delivery O2 Flow Rate FiO2 02/24/17 12:43 72 02/24/17 11:36 97.6 68 18 137/71 98 02/24/17 11:36 68 02/24/17 10:58 69 02/24/17 09:53 72 02/24/17 07:37 70 02/24/17 07:37 97.8 70 18 139/72 96 02/24/17 06:00 77 02/24/17 05:00 62 02/24/17 04:10 70 02/24/17 03:20 68 02/24/17 03:10 97.5 65 18 129/74 97 02/24/17 02:21 69 02/24/17 01:00 68 02/24/17 00:00 76 02/23/17 23:33 97.7 66 18 140/68 96 02/23/17 23:00 64 02/23/17 22:00 88 02/23/17 21:00 68 02/23/17 20:09 97.6 71 20 130/57 94 02/23/17 20:09 78 02/23/17 18:01 71 02/23/17 17:01 66 02/23/17 16:00 78 02/23/17 16:00 97.6 64 18 153/88 97 02/23/17 14:00 62 I/O 02/23/17 02/23/17 02/23/17 02/24/17 02/24/17 02/24/17 07:00 15:00 23:00 07:00 15:00 23:00 Intake Total 350 ml 94 ml 860 ml Output Total 800 ml 350 ml 1050 ml Balance -450 ml -256 ml -190 ml Intake Oral 240 ml 0 ml 360 ml IV Total 110 ml 94 ml 500 ml Output Urine Total 800 ml 350 ml 1050 ml # Voids 2 # Bowel Movements 0 0 Result Diagram: 02/23/17 0356 02/20/17 2310 ROS General: Other (10 oint ROS done, positives noted) HEENT: Other (gerd) Pulmonary: Cough (occ.) GI: BM (uses exlax, wants to take when she get home) Physical Exam Physical Exam PHYSICAL EXAMINATION GENERAL: This is an obese, well-nourished female who appears to be in no acute distress. She is alert HEAD: Normocephalic without any lesion or mass noted. Facial features appear symmetric. OROPHARYNGEAL: Oropharynx without erythema or edema. NECK: Supple. No nuchal rigidity or lymphadenopathy. Trachea midline without deviation. CARDIAC: Regular rhythm, regular rate, S1 and S2 are heard. LUNGS: Clear to auscultation bilaterally. ABDOMEN: Soft, nontender, no organomegaly or masses. Bowel sounds are heard in all four quadrants. No rebound. No guarding. EXTREMITIES: no edema. Pulses equal bilateral. NEUROLOGICAL: Patient mood and affect appropriate. No focal deficit SKIN:Warm and moist Objective Remarks Im ready to go home. A/P Assessment and Plan 1) Chest pain (2) Non-ST elevation DC (NSTEMI) (3) HTN (hypertension) (4) Dyspnea on exertion (5) Hyperlipemia (6) Snuff user (7) COPD (chronic obstructive pulmonary disease) 8. GERD Chest pain, DC R/O Cardiac consult done,appreciate Heart catheter done, normal arteries rm air now GERD, stay on pepcid BID at home COPD, stable, DuoNeb's when necessary for any wheezing Hypertension, stable Continue home medications Hyperlipidemia Medical management Bowel regimen, home ex lax DC planning today, stable for DC Discussed with nurse Discussed with patient Discussed with Dr. Ely, patient seen on his behalf Gabriela Chowdhury February 24, 2017 13:21
[2017-02-24] MEDS ORDERED: FAMOTIDINE 20 MG TAB PO SCH (14:00)
--- NOTE | 2017-02-24 18:08 | HHI.DS ---
Discharge Summary Admission Date February 21, 2017 at 00:01 Discharge Date: February 24, 2017 Admitting Diagnosis NSTEMI (1) Chest pain Diagnosis: Principal (2) Non-ST elevation MA (NSTEMI) Diagnosis: Principal (3) HTN (hypertension) Diagnosis: Principal (4) Dyspnea on exertion Diagnosis: Principal (5) Hyperlipemia Diagnosis: Secondary (6) Snuff user Diagnosis: Secondary (7) COPD (chronic obstructive pulmonary disease) Diagnosis: Secondary (8) GERD (gastroesophageal reflux disease) (9) Viral upper respiratory illness Brief History This was a pleasant 81-year-old elderly female with past medical history of MA, CAD, previous angioplasty and stent to LAD May [address] hess, hypertension, hyperlipidemia, COPD. Patient presented to emergency room complaining of chest tightness had developed a she was resting. Patient indicated pain was over the left breast radiated across chest wall, she felt slightly short of breath and weak, no nausea, no vomiting, no diaphoresis. She took 2 nitroglycerin without any improvement and then was given a thorough 1. Chest discomfort was relieved by nitroglycerin. Patient indicated she had this similar presentation when she had stent in May 2016. She follows up with Dr. hess regularly and is compliant with medications. CBC/BMP: 02/23/17 0356 02/20/17 2310 Significant Findings Laboratory Tests Test 02/22/17 02/23/17 02/23/17 05:35 03:56 15:54 Activated Partial 56.9 SEC 50.4 SEC Thromboplast Time (24.3-30.1) (24.3-30.1) Troponin I 0.12 NG/ML (0.02-0.05) LDL Cholesterol 114 MG/DL (0-99) Triglycerides Level 151 MG/DL (42-150) Imaging Last Impressions Chest X-Ray 02/20/17 2300 Signed Impressions: Service Date/Time: Monday, February 20, 2017 23:12 - CONCLUSION: No acute disease. No significant change has occurred. Joaquín Chou MD PE at Discharge GENERAL: This is an obese, well-nourished female who appears to be in no acute distress. She is alert HEAD: Normocephalic without any lesion or mass noted. Facial features appear symmetric. OROPHARYNGEAL: Oropharynx without erythema or edema. NECK: Supple. No nuchal rigidity or lymphadenopathy. Trachea midline without deviation. CARDIAC: Regular rhythm, regular rate, S1 and S2 are heard. LUNGS: Clear to auscultation bilaterally. ABDOMEN: Soft, nontender, no organomegaly or masses. Bowel sounds are heard in all four quadrants. No rebound. No guarding. EXTREMITIES: no edema. Pulses equal bilateral. NEUROLOGICAL: Patient mood and affect appropriate. No focal deficit SKIN:Warm and moist Objective Remarks Im ready to go home. Hospital Course Patient was evaluated in the emergency room, laboratory workup was completed, essentially unremarkable. EKG showed sinus rhythm with T-wave inversions in leads 1, aVL, V4 through V6. This is similar to previous EKG. Chest x-ray did not reveal any acute abnormalities. Troponin was slightly elevated 0.06. Patient was placed on a heparin drip. Patient was now seen in [facility], at this time she is chest pain-free. Patient was admitted for further evaluation and treatment. Patient was monitored with labs and vital signs every 4 hours and as needed. She was monitored on telemetry throughout her whole hospital stay, but had no dysrhythmias or problems noted. IV access was intact the whole time. Patient was placed on a heparin drip, and had cardiac catheterization after pain was stabilized. It was initially felt the patient had a non-STEMI, but but heart catheterization showed no acute coronary artery blockages. Patient's blood pressure and pain was monitored, heparin drip drip was DC'd, and patient was educated on taking Pepcid or Zantac twice a day for GERD. This pain possibly could be attributed to reflux, stressors and obesity along with other comorbidities. Patient is to exercise take her medications as prescribed and follow up with her PCP in 1-2 weeks and cardiology on an as-needed basis. Patient was given DuoNeb nebulizer treatments as needed, bowel regimen was followed. These are the diagnoses that were used to treat the patient during her hospital stay 1) Chest pain (2) Non-ST elevation MA (NSTEMI) (3) HTN (hypertension) (4) Dyspnea on exertion (5) Hyperlipemia (6) Snuff user (7) COPD (chronic obstructive pulmonary disease) 8. GERD Pt Condition on Discharge: Stable Discharge Disposition: Discharge Home Discharge Instructions DIET: Follow Instructions for: Heart Healthy Diet Activities you can perform: Regular-No Restrictions Follow up Referrals: Cardiology - 4 Weeks PCP Follow-up - 1 Week Continued Medications: Aspirin (Aspirin) 81 Mg Chew 81 MG CHEW DAILY Ref 0 TAB Atorvastatin (Lipitor) 80 Mg Tab 80 MG PO HS Cholesterol Management #30 Ref 0 TAB Clopidogrel (Plavix) 75 Mg Tab 75 MG PO DAILY Blood Clot Prevention #30 Ref 0 TAB Isosorbide Mononitrate (Isosorbide Mononitrate) 10 Mg Tab 30 MG PO DAILY Take 2 doses 7 hours apart. Prevent Chest Pain #60 TAB Losartan (Losartan) 100 Mg Tab 100 MG PO DAILY Blood Pressure Management #30 Ref 0 TAB Metoprolol Tartrate (Metoprolol Tartrate) 25 Mg Tab 25 MG PO BID #60 Ref 0 TAB Nitroglycerin SL (Nitroglycerin SL) 0.3 Mg Subl 0.3 MG SL DIRECTED ONE TABLET UNDER THE TONGUE NEEDED FOR CHEST PAIN, MAY REPEAT EVERY FIVE MINUTES FOR A TOTAL OF 3 DOSES OR CALL 911 IF NO RELIEF PRN CHEST PAIN #100 Ref 0 TAB.SL Potassium Chloride ER (Potassium Chloride CR) 10 Meq Tab 20 MEQ PO BID TAB Ranitidine (Ranitidine) 150 Mg Cap 150 MG PO DAILY #30 Ref 0 CAP ([hydrodiuril]) 25 MG PO DAILY Gabriela Chowdhury February 24, 2017 18:08
[2017-02-25] MEDS ORDERED: FAMOTIDINE 20 MG TAB PO SCH (09:00)
== END 2017-02-24 15:02 | disposition home or self-care (01) ==
LOC: NEPE 22:49 → NEDA 02-21 00:01 → INTOOBSV 02-21 00:01 → HCIN 02-21 03:30
PROVIDERS: ADMIT Specialist; ATTEND Specialist
DX: I25.119 Atherosclerotic heart disease of native coronary artery with unspecified angina pectoris (principal); I10 Essential (primary) hypertension; K21.9 Gastro-esophageal reflux disease without esophagitis; I25.2 Old myocardial infarction; E78.5 Hyperlipidemia, unspecified; J44.9 Chronic obstructive pulmonary disease, unspecified; J06.9 Acute upper respiratory infection, unspecified; E66.9 Obesity, unspecified; M19.90 Unspecified osteoarthritis, unspecified site; Z68.34 Body mass index [BMI] 34.0-34.9, adult; F17.290 Nicotine dependence, other tobacco product, uncomplicated; Z95.5 Presence of coronary angioplasty implant and graft; Z85.3 Personal history of malignant neoplasm of breast; Z92.21 Personal history of antineoplastic chemotherapy; Z92.3 Personal history of irradiation; Z79.02 Long term (current) use of antithrombotics/antiplatelets; Z79.82 Long term (current) use of aspirin; Z88.8 Allergy status to other drugs, medicaments and biological substances
CPT/HCPCS: 71010; 80048; 80061; 82550; 82552; 83735; 84484; 85002; 85025; 85027; 85610; 85730; 93005; 93306; 93458; 99291; C1769; C1893; G0378; J1644; J2250; J2270; J3010; Q9967

== ENCOUNTER 2017-07-24 20:06 | Emergency (ER) | payer MEDICAID, MEDICARE ==
[~2017-07-24] VITALS: Ht 157.5 cm; Wt 85.0 kg
[~2017-07-24 20:06] MED LIST changes: +ASPI81CH CHEW; -ATOR80TA41 PO; -CLOP75 PO; -ECOT81TA2 PO; -HCTZ25 PO; +ISOS10TA3 PO; -ISOS30 PO; -KLOR20TA6 PO; +LIPI80TA PO; +LOSA100T PO; -LOSA50 PO; -METO25 PO; +METO25TA3 PO; -NITR.3 SL; +NITR1SUB2 SL; +PLAV75TA29 PO; +POTA10TA8 PO; -RANI150 PO; +RANI150C PO; +hydrodiuril PO
[2017-07-24 20:09] VITALS: BP 197/85; PULSE 93; RESP 16; TEMP 97.6; O2SAT 96
--- NOTE | 2017-07-24 20:47 | PD ---
HPI Chief Complaint: Back/ Neck Pain or Injury Time Seen by Provider: 20:24 Travel History International Travel<30 days: No Contact w/Intl Traveler<30days: No Traveled to known affect area: No History of Present Illness HPI 81-year-old female complains of right upper back pain. Patient states that she was getting up this morning started having sharp pain right upper back area with radiation to right shoulder. Patient states the pain is worse with deep breathing or movement. Patient denies any recent fall. Patient denies any headache. Patient denies any neck pain. Patient denies any anterior chest pain. Patient denies any shortness of breath. Patient denies abdominal pain. Patient denies any focal weakness or numbness of extremity. Patient denies coughing congestion fever chills. PFSH Past Medical History Hx Anticoagulant Therapy: Yes Arthritis: Yes Asthma: No Autoimmune Disease: No Blood Disorders: No Anxiety: No Depression: No Heart Rhythm Problems: No Cancer: Yes (LEFT BREAST) Cardiovascular Problems: Yes (stent 06/03/16) High Cholesterol: No Chemotherapy: No Chest Pain: Yes Congestive Heart Failure: No COPD: Yes Diabetes: No Diminished Hearing: No Endocrine: No Gastrointestinal Disorders: Yes Genitourinary: Yes Hypertension: Yes Immune Disorder: No Implanted Vascular Access Dvce: Yes (cardiac stent) Kidney Stones: Yes Musculoskeletal: Yes Neurologic: No Psychiatric: No Reproductive: Yes (TOTAL HYSTERECTOMY) Respiratory: Yes Immunizations Current: No Myocardial Infarction: Yes ("SMALL ME YEARS AGO") Radiation Therapy: Yes Sleep Apnea: No Thyroid Disease: No Tetanus Vaccination: < 5 Years Influenza Vaccination: No ?: Not Menopausal: Yes : 13 Para: 12 Miscarriage: 1 Dilation and Curettage (D&C): Yes Past Surgical History Abdominal Surgery: No AICD: No Arteriovenous Shunt: No Body Medical Devices: cardiac stent, bliateral lens implants Cardiac Surgery: Yes (angioplasty 06-03-16) Ear Surgery: No Endocrine Surgery: No Eye Surgery: Yes (BL CATARACT REMOVAL, BL LENSE IMPLANT) Genitourinary Surgery: No Gynecologic Surgery: Yes (TOTAL HYSTERECTOMY) Hysterectomy: Yes Insulin Pump: No Joint Replacement: No Mastectomy: Yes (L MASTECTOMY) Neurologic Surgery: No Oral Surgery: No Pacemaker: No Thoracic Surgery: Yes Other Surgery: Yes (L PARTIAL MASTECTOMY) Social History Alcohol Use: No Tobacco Use: No (uses snuff) Substance Use: No Allergies-Medications (Allergen,Severity, Reaction): Coded Allergies: lisinopril (Unverified Allergy, Mild, COUGH, 05/25/17) Reported Meds & Prescriptions Reported Meds & Active Scripts Active Reported Ranitidine (Ranitidine HCl) 150 Mg Cap 150 Mg PO DAILY Potassium Chloride CR (Potassium Chloride) 10 Meq Tab 20 Meq PO BID Nitroglycerin SL (Nitroglycerin) 0.3 Mg Subl 0.3 Mg SL DIRECTED PRN ONE TABLET UNDER THE TONGUE NEEDED FOR CHEST PAIN, MAY REPEAT EVERY FIVE MINUTES FOR A TOTAL OF 3 DOSES OR CALL 911 IF NO RELIEF Metoprolol Tartrate 25 Mg Tab 25 Mg PO BID Losartan (Losartan Potassium) 100 Mg Tab 100 Mg PO DAILY Isosorbide Mononitrate 10 Mg Tab 30 Mg PO DAILY Take 2 doses 7 hours apart. [hydrodiuril] 25 Mg PO DAILY Plavix (Clopidogrel Bisulfate) 75 Mg Tab 75 Mg PO DAILY Lipitor (Atorvastatin Calcium) 80 Mg Tab 80 Mg PO HS Aspirin 81 Mg Chew 81 Mg CHEW DAILY Review of Systems General / Constitutional: No: Fever Eyes: No: Visual changes HENT: No: Headaches Cardiovascular: No: Chest Pain or Discomfort Respiratory: No: Shortness of Breath Gastrointestinal: No: Abdominal Pain Genitourinary: No: Dysuria Musculoskeletal: No: Pain Skin: No Rash Neurologic: No: Weakness Psychiatric: No: Depression Endocrine: No: Polydipsia Hematologic/Lymphatic: No: Easy Bruising Physical Exam Narrative GENERAL: Well-nourished, well-developed patient. SKIN: Focused skin assessment warm/dry. HEAD: Normocephalic. EYES: No scleral icterus. No injection or drainage. NECK: Supple, trachea midline. No JVD or lymphadenopathy. CARDIOVASCULAR: Regular rate and rhythm without murmurs, gallops, or rubs. RESPIRATORY: Breath sounds equal bilaterally. No accessory muscle use. GASTROINTESTINAL: Abdomen soft, non-tender, nondistended. MUSCULOSKELETAL: No cyanosis, or edema. BACK: Moderate tenderness to palpation right upper back area, without obvious deformity. No CVA tenderness. No rash noted. No redness or swelling of the skin. Data Data Last Documented VS Vital Signs Date Time Temp Pulse Resp B/P (MAP) Pulse Ox O2 Delivery O2 Flow Rate FiO2 07/24/17 20:09 97.6 93 16 197/85 (122) 96 Room Air Orders Orders Electrocardiogram (07/24/17 20:41) Chest, Single Ap (07/24/17 20:41) Acetamin-Codeine 300-30 Mg (Tylenol-Code (07/24/17 21:30) MDM Medical Decision Making Medical Screen Exam Complete: Yes Emergency Medical Condition: Yes Interpretation(s) 2048 PM. EKG shows sinus rhythm nonspecific ST-T wave changes. Unchanged from previous EKG. 21:20 PM. Chest x-ray shows no acute consolidation. Differential Diagnosis Differential diagnosis including musculoskeletal, fractured rib, hemopneumothorax, ME. Narrative Course 81-year-old female with right upper back pain. Tylenol with codeine, one tablet by mouth given. Diagnosis Primary Impression: Back pain Qualified Codes: M54.6 - Pain in thoracic spine Patient Instructions: General Instructions Additional Instructions: Upright moist heat to the back. Tylenol with codeine for pain. Follow-up with personal physician. Return if worse. Take stool softener with pain medication. Med/Other Pt SpecificInfo: Prescription(s) given Scripts Acetaminophen-Codeine (Tylenol-Codeine #3) 300-30 mg Tab 1-2 TAB PO Q6H Y for PAIN, #30 TAB 0 Refills Prov: Neeraj Vega MD 07/24/17 Disposition: 01 DISCHARGE HOME Condition: Stable Neeraj Vega MD Jul 24, 2017 20:47
--- NOTE | 2017-07-24 21:15 | RADRPT ---
EXAM DATE/TIME: 07/24/2017 20:57 [facility] COMPARISON: CHEST SINGLE AP, February 20, 2017, 23:12. INDICATIONS : Chest pain. MEDICAL HISTORY : Hypertension. Myocardial infarction. Carcinoma, breast. COPD SURGICAL HISTORY : Mastectomy, left. ENCOUNTER: Initial ACUITY: 1 day PAIN SCORE: 1/10 LOCATION: Bilateral chest FINDINGS: A single view of the chest demonstrates the lungs to be symmetrically aerated without evidence of mas s, infiltrate or effusion. The cardiomediastinal contours are unremarkable. Osseous structures are intact. CONCLUSION: No acute disease. Ayaan Curiel MD on July 24, 2017 at 21:14 Board Certified Radiologist. This report was verified electronically.
[2017-07-24] MEDS ORDERED: TYLETAB34 PO (21:22)
[2017-07-24] MEDS ORDERED: ACETAMINOPHEN/CODEINE 300 MG/30 MG TAB PO ONE (21:30)
--- NOTE | 2017-07-25 07:40 | EKG ---
Date Performed: 07/24/2017 Time Performed: 20:44:13 PTAGE: 81 years EKG: Sinus rhythm PROBABLE INFERIOR MYOCARDIAL INFARCTION Nonspecific T wave changes No significant change from prior electrocardiogram. NO PREVIOUS TRACING DOCTOR: Rafael Palacios Interpretating Date/Time 07/25/2017 07:39:51
== END 2017-07-24 21:41 | disposition home or self-care (01) ==
LOC: NEPC 20:06
DX: M54.6 Pain in thoracic spine (principal); I25.2 Old myocardial infarction; I10 Essential (primary) hypertension; J44.9 Chronic obstructive pulmonary disease, unspecified; Z79.01 Long term (current) use of anticoagulants; Z79.899 Other long term (current) drug therapy; Z79.82 Long term (current) use of aspirin
CPT/HCPCS: 71010; 93005; 99284

== ENCOUNTER 2017-11-06 01:10 | Observation (INO) | payer MEDICARE, MEDICAID ==
[~2017-11-06] VITALS: Ht 152.4 cm; Wt 91.7 kg
[2017-11-06] VITALS (12 sets, daily range): BP systolic 148–229; BP diastolic 68–160; PULSE 67–85; RESP 16–20; TEMP 97.2–97.9; O2SAT 96–98
[~2017-11-06 01:10] MED LIST changes: +ASPI-516 CHEW; -ASPI81CH CHEW; +TYLETAB34 PO
[2017-11-06] MEDS ORDERED: SODIUM CHLORIDE 0.9% FLUSH 10 ML FLUSH IVF PRN (01:30)
[2017-11-06] MEDS ORDERED: ASPIRIN 325 MG TAB PO ONE (01:30)
[2017-11-06] MEDS ORDERED: MORPHINE SULFATE 4 MG/ML INJ IV PUSH ONE (01:30)
--- NOTE | 2017-11-06 01:51 | RADRPT ---
EXAM DATE/TIME: 11/06/2017 01:32 [facility] COMPARISON: CHEST SINGLE AP, July 24, 2017, 20:57. INDICATIONS : Chest pain. MEDICAL HISTORY : Hypertension. Chronic obstructive pulmonary disease. Myocardial infarction. Carcinoma, breast. SURGICAL HISTORY : Mastectomy, left. ENCOUNTER: Initial ACUITY: 1 day PAIN SCORE: 8/10 LOCATION: Bilateral chest FINDINGS: The heart size is enlarged. The lungs are clear. No effusion is seen. Clips are seen in the lower lef t axillary region. Surgical fasteners are seen at the proximal left numerous. CONCLUSION: Cardiomegaly. Stefan Selby MD on November 06, 2017 at 1:45 Board Certified Radiologist. This report was verified electronically.
[2017-11-06 01:53] LABS: AUTOMATED NEUTROPHIL # 5.5 TH/MM3 (1.8-7.7); BASOPHIL # 0.1 TH/MM3 (0-0.2); BASOPHIL % 0.9 % (0.0-2.0); EOSINOPHIL # 0.5 TH/MM3 (0-0.4); HEMATOCRIT 40.6 % (35.0-46.0); HEMOGLOBIN 13.9 GM/DL (11.6-15.3); LYMPHOCYTE # 2.4 TH/MM3 (1.0-4.8); MEAN CELL VOLUME 89.4 FL (80.0-100.0); MEAN CORPUSCULAR HEMOGLOBIN 30.6 PG (27.0-34.0); MEAN CORPUSCULAR HGB CONC 34.3 % (32.0-36.0); MEAN PLATELET VOLUME 7.9 FL (7.0-11.0); MONO % 8.8 % (0.0-8.0); MONOCYTE # 0.8 TH/MM3 (0-0.9); NEUT % 59.3 % (16.0-70.0); PLATELET COUNT 227 TH/MM3 (150-450); RED BLOOD COUNT 4.54 MIL/MM3 (4.00-5.30); RED CELL DISTRIBUTION WIDTH 13.9 % (11.6-17.2); WHITE BLOOD COUNT 9.3 TH/MM3 (4.0-11.0)
[2017-11-06] MEDS: METOPROLOL TARTRATE 5 MG/5 ML VIAL IVS SCH ×3 (02:00→02:10)
[2017-11-06] MEDS ORDERED: CLOPIDOGREL 75 MG TAB PO ONE (02:00)
[2017-11-06 02:01] LABS: PROTHROMBIN TIME - PATIENT 10.3 SEC (9.8-11.6)
[2017-11-06] MEDS: NITROGLYCERIN 0.4 MG SL 25 TABS/BTL SL SCH ×3 (02:05→02:13)
[2017-11-06 02:13] LABS: BICARBONATE 30.1 MEQ/L (21.0-32.0); CALCIUM 9.1 MG/DL (8.5-10.1); CREATININE 0.89 MG/DL (0.50-1.00); MAGNESIUM 2.2 MG/DL (1.5-2.5)
[2017-11-06 02:16] LABS: TROPONIN I 0.07 NG/ML (0.02-0.05)
--- NOTE | 2017-11-06 02:16 | PD ---
HPI Chief Complaint: Chest Pain Time Seen by Provider: 01:23 Travel History International Travel<30 days: No Contact w/Intl Traveler<30days: No Traveled to known affect area: No History of Present Illness HPI 8-year-old female complains of retrosternal chest pain which started at rest about 3 hours prior to ER arrival. There is radiation to the left posterior neck. Shortness of breath is reported. She underwent coronary catheterization approximately 3 months prior and mild to moderate LAD disease was observed with a patent stent and normal left ventricular function. The patient reports noncompliance of medications including Plavix for the past week due to not having any available. No fever or cough. Severity moderate. PFSH Past Medical History Hx Anticoagulant Therapy: Yes Arthritis: Yes Asthma: No Autoimmune Disease: No Blood Disorders: No Anxiety: No Depression: No Heart Rhythm Problems: No Cancer: Yes (LEFT BREAST) Cardiovascular Problems: Yes (stent 06/03/16) High Cholesterol: No Chemotherapy: No Chest Pain: Yes Congestive Heart Failure: No COPD: Yes Diabetes: No Diminished Hearing: No Endocrine: No Gastrointestinal Disorders: Yes Genitourinary: Yes Hypertension: Yes Immune Disorder: No Implanted Vascular Access Dvce: Yes (cardiac stent) Kidney Stones: Yes Musculoskeletal: Yes Neurologic: No Psychiatric: No Reproductive: Yes (TOTAL HYSTERECTOMY) Respiratory: Yes Immunizations Current: No Myocardial Infarction: Yes ("SMALL NM YEARS AGO") Radiation Therapy: Yes Sleep Apnea: No Thyroid Disease: No Menopausal: Yes : 13 Para: 12 Miscarriage: 1 Dilation and Curettage (D&C): Yes Past Surgical History Abdominal Surgery: No AICD: No Arteriovenous Shunt: No Body Medical Devices: cardiac stent, bliateral lens implants Cardiac Surgery: Yes (angioplasty 06-03-16) Ear Surgery: No Endocrine Surgery: No Eye Surgery: Yes (BL CATARACT REMOVAL, BL LENSE IMPLANT) Genitourinary Surgery: No Gynecologic Surgery: Yes (TOTAL HYSTERECTOMY) Hysterectomy: Yes Insulin Pump: No Joint Replacement: No Mastectomy: Yes (L MASTECTOMY) Neurologic Surgery: No Oral Surgery: No Pacemaker: No Thoracic Surgery: Yes Other Surgery: Yes (L PARTIAL MASTECTOMY) Social History Alcohol Use: No Tobacco Use: No Substance Use: No Allergies-Medications (Allergen,Severity, Reaction): Coded Allergies: lisinopril (Unverified Allergy, Mild, COUGH, 05/25/17) Reported Meds & Prescriptions Reported Meds & Active Scripts Active Tylenol-Codeine #3 (Acetaminophen-Codeine) 300-30 mg Tab 1-2 Tab PO Q6H PRN Reported Ranitidine (Ranitidine HCl) 150 Mg Cap 150 Mg PO DAILY Potassium Chloride CR (Potassium Chloride) 10 Meq Tab 20 Meq PO BID Nitroglycerin SL (Nitroglycerin) 0.3 Mg Subl 0.3 Mg SL DIRECTED PRN ONE TABLET UNDER THE TONGUE NEEDED FOR CHEST PAIN, MAY REPEAT EVERY FIVE MINUTES FOR A TOTAL OF 3 DOSES OR CALL 911 IF NO RELIEF Metoprolol Tartrate 25 Mg Tab 25 Mg PO BID Losartan (Losartan Potassium) 100 Mg Tab 100 Mg PO DAILY Isosorbide Mononitrate 10 Mg Tab 30 Mg PO DAILY Take 2 doses 7 hours apart. [hydrodiuril] 25 Mg PO DAILY Plavix (Clopidogrel Bisulfate) 75 Mg Tab 75 Mg PO DAILY Lipitor (Atorvastatin Calcium) 80 Mg Tab 80 Mg PO HS Aspirin 81 Mg Chew 81 Mg CHEW DAILY Review of Systems Except as stated in HPI: all other systems reviewed are Neg General / Constitutional: No: Fever Physical Exam Narrative GENERAL: 82-year-old female mild distress speaking full sentences SKIN: Warm and dry. HEAD: Atraumatic. Normocephalic. EYES: Pupils equal and round. No scleral icterus. No injection or drainage. ENT: No nasal bleeding or discharge. Mucous membranes pink and moist. NECK: Trachea midline. No JVD. CARDIOVASCULAR: Regular rate and rhythm. RESPIRATORY: No accessory muscle use. Clear to auscultation. Breath sounds equal bilaterally. GASTROINTESTINAL: Abdomen soft, non-tender, nondistended. Hepatic and splenic margins not palpable. MUSCULOSKELETAL: Extremities without clubbing, cyanosis, or edema. No obvious deformities. NEUROLOGICAL: Awake and alert. No obvious cranial nerve deficits. Motor grossly within normal limits. Five out of 5 muscle strength in the arms and legs. Normal speech. PSYCHIATRIC: Appropriate mood and affect; insight and judgment normal. Data Data Last Documented VS Vital Signs Date Time Temp Pulse Resp B/P (MAP) Pulse Ox O2 Delivery O2 Flow Rate FiO2 11/06/17 02:45 75 16 156/88 (110) 97 11/06/17 01:20 97.6 11/06/17 01:12 Room Air Vital signs reviewed Orders Orders Electrocardiogram (11/06/17 01:25) Basic Metabolic Panel (Bmp) (11/06/17 01:25) Ckmb (Isoenzyme) Profile (11/06/17 01:25) Complete Blood Count With Diff (11/06/17 01:25) Magnesium (Mg) (11/06/17:25) Prothrombin Time / Inr (Pt) (11/06/17 01:25) Act Partial Throm Time (Ptt) (11/06/17:25) Troponin I (11/06/17:25) Chest, Single Ap (11/06/17:25) Ecg Monitoring (11/06/17:25) Bilateral Bp Monitoring (11/06/17:25) Iv Access Insert/Monitor (11/06/17:25) Oximetry (11/06/17:25) Oxygen Administration (11/06/17:25) Aspirin (Aspirin) (11/06/17 01:30) Morphine Inj (Morphine Inj) (11/06/17 01:30) Sodium Chloride 0.9% Flush (Ns Flush) (11/06/17 01:30) Nitroglycerin Sl (Nitrostat Sl) (11/06/17 02:00) Metoprolol Tartrate Inj (Lopressor Inj) (11/06/17 02:00) Clopidogrel (Plavix) (11/06/17 02:00) CKMB (11/06/17 01:31) CKMB% (11/06/17 01:31) Admit Order (Ed Use Only) (11/06/17 02:42) Labs Laboratory Tests Test 11/06/17 01:31 White Blood Count 9.3 TH/MM3 Red Blood Count 4.54 MIL/MM3 Hemoglobin 13.9 GM/DL Hematocrit 40.6 % Mean Corpuscular Volume 89.4 FL Mean Corpuscular Hemoglobin 30.6 PG Mean Corpuscular Hemoglobin Concent 34.3 % Red Cell Distribution Width 13.9 % Platelet Count 227 TH/MM3 Mean Platelet Volume 7.9 FL Neutrophils (%) (Auto) 59.3 % Lymphocytes (%) (Auto) 26.0 % Monocytes (%) (Auto) 8.8 % Eosinophils (%) (Auto) 5.0 % Basophils (%) (Auto) 0.9 % Neutrophils # (Auto) 5.5 TH/MM3 Lymphocytes # (Auto) 2.4 TH/MM3 Monocytes # (Auto) 0.8 TH/MM3 Eosinophils # (Auto) 0.5 TH/MM3 Basophils # (Auto) 0.1 TH/MM3 CBC Comment DIFF FINAL Differential Comment Prothrombin Time 10.3 SEC Prothromb Time International Ratio 1.0 RATIO Activated Partial Thromboplast Time 26.4 SEC Blood Urea Nitrogen 14 MG/DL Creatinine 0.89 MG/DL Random Glucose 104 MG/DL Calcium Level 9.1 MG/DL Magnesium Level 2.2 MG/DL Sodium Level 138 MEQ/L Potassium Level 4.2 MEQ/L Chloride Level 104 MEQ/L Carbon Dioxide Level 30.1 MEQ/L Anion Gap 4 MEQ/L Estimat Glomerular Filtration Rate 61 ML/MIN Total Creatine Kinase 388 U/L Creatine Kinase MB 4.9 NG/ML Creatine Kinase MB % 1.3 % Troponin I 0.07 NG/ML MDM Medical Decision Making Medical Screen Exam Complete: Yes Emergency Medical Condition: Yes Medical Record Reviewed: Yes Differential Diagnosis NSTEMI, unstable angina, coronary vasospasm, PE, PTX, aortic dissection, pericarditis, myocarditis, endocarditis, PNA, esophageal disease, aneurysm, musculoskeletal etiologies, anxiety, cocaine/sympathomimetic abuse Narrative Course EKG shows a sinus rhythm with a rate of 79 and AST changes seen in V2 V3 V4 as well as inferior leads have been seen in prior EKGs most recently July, potentially consistent with ischemia CBC & BMP Diagram 11/06/17 01:31 Calcium Level 9.1, Magnesium Level 2.2 Troponin 0.07 Last 24 hours Impressions Chest X-Ray 11/06/17 0125 Signed Impressions: Service Date/Time: Monday, November 06, 2017 01:32 - CONCLUSION: Cardiomegaly. Stefan Selby MD Although the patient's troponin is elevated most times she comes here there is no compliance with Plavix for a week and EKG changes which are chronic in nature potentially concerning for ischemia. Nitroglycerin, morphine and metoprolol given. d/w Dr Carlos for [facility] Critical Care Narrative Aggregate critical care time was 35 minutes. Time to perform other separately billable procedures was not included in the critical care time. My time did not include minutes spent treating any other patients simultaneously or on activities that did not directly contribute to the patient's treatment. The services I provided to this patient were to treat and/or prevent clinically significant deterioration that could result in: due to coronary artery disease, cardiopulmonary arrest I provided critical care services requiring my management, as noted below: Chart data review, documentation time, medication orders and management, vital sign assessments/reviewing monitor data, ordering and reviewing lab tests, ordering and interpreting/reviewing x-rays and diagnostic studies, care of the patient and discussion of the patient with the admitting physicians. Diagnosis Primary Impression: CAD (coronary artery disease) Qualified Codes: I25.10 - Atherosclerotic heart disease of [place] coronary artery without angina pectoris Additional Impressions: Elevated troponin Noncompliance with medications Admitting Information Admitting Physician Requests: Admit Jamar Ascencio MD Nov 06, 2017 02:16
[2017-11-06] MEDS ORDERED: ACETAMINOPHEN 325 MG TAB PO PRN (03:00)
[2017-11-06] MEDS ORDERED: ACETAMINOPHEN/HYDROcodone 325 MG/5 MG TAB PO PRN (03:00)
[2017-11-06] MEDS ORDERED: NITROGLYCERIN 2% OINT 1 GM PACKET TOPICAL PRN (03:00)
[2017-11-06] MEDS ORDERED: SODIUM CHLORIDE 0.9% FLUSH 10 ML FLUSH IV FLUSH PRN (03:00)
[2017-11-06] MEDS ORDERED: ONDANSETRON HCL 4 MG/2 ML VIAL IVP PRN (03:00)
[2017-11-06] MEDS ORDERED: LACTULOSE SYRUP 20 GM/30 ML CUP PO PRN (03:00)
[2017-11-06] MEDS ORDERED: MORPHINE SULFATE 2 MG/ML INJ IV PUSH PRN (03:00)
[2017-11-06] MEDS ORDERED: MAGNESIUM HYDROXIDE SUSP 30 ML CUP PO PRN (03:00)
[2017-11-06] MEDS ORDERED: SENNOSIDES 8.6 MG TAB PO PRN (03:00)
[2017-11-06] MEDS ORDERED: BISACODYL 10 MG SUPP RECTAL PRN (03:00)
--- NOTE | 2017-11-06 03:14 | HHI.HP ---
HPI [facility] Primary Care Physician Nai Elizabeth MD Admission Diagnosis ELEVATED TROPONIN, CHEST PAIN, HTN, MEDICATION NON-COMPLIANCE Diagnoses: (1) Chest pain Diagnosis: Principal (2) Elevated troponin Diagnosis: Principal (3) HTN (hypertension) Diagnosis: Principal Travel History International Travel<30 Days: No Contact w/Intl Traveler <30 Da: No Traveled to Known Affected Are: No History of Present Illness This is an 82-year-old female with a PMH of HTN, Breast CA, Hyperlipidemia and CAD who presented ear with complaints of chest pain starting earlier tonight. States pain started acutely, is substernal in location, constant, severe, 8/10, occasional radiation to left neck. S/p Cardiac Cath 02/23/[address] Elizabeth w/ mild to moderate CAD, patent stent mid LAD w/ recommendation for medical therapy. States she's been off Plavix and "three other medications" for approx 2wks secondary to insurance issues, daughter states she was "dropped" from Medicaid. S/p NTG, Morphine in ER w/ some improvement, currently chest pain free. On arrival, BP 240/160, HR 85, O2 sat 97% on RA, Afebrile. S/p Metoprolol in ER. CBC unremarkable. Chemistry unremarkable. CPK 388. Troponin 0.07. EKG with no acute ischemia. INR 1.0. CXR with cardiomegaly. Review of Systems Except as stated in HPI: all other systems reviewed are Neg ROS: 14 point review of systems otherwise negative. Past Family Social History Past Medical History PMH: HTN, Breast CA, Hyperlipidemia and CAD Past Surgical History PAST SURGICAL HISTORY: Cardiac Stent, CABG, Bilateral Cataract Surgery, Total Hysterectomy, Left Mastectomy Allergies: Coded Allergies: lisinopril (Unverified Allergy, Mild, COUGH, 05/25/17) Family History PAST FAMILY HISTORY: Reviewed. No h/o DM or CAD Social History PAST SOCIAL HISTORY: Negative for alcohol, tobacco or drugs. Physical Exam Vital Signs Vital Signs Date Time Temp Pulse Resp B/P (MAP) Pulse Ox O2 Delivery O2 Flow Rate FiO2 11/06/17 02:45 75 16 156/88 (110) 97 11/06/17 02:30 75 18 148/83 (104) 97 11/06/17 02:00 77 16 165/80 (108) 98 11/06/17 01:21 78 11/06/17 01:20 97.6 80 18 229/102 (144) 98 11/06/17 01:12 97.5 85 18 214/160 (178) 97 Room Air Physical Exam PE: GENERAL: Pleasant elderly white female in no acute distress. Daughter bedside HEENT: PERRLA, EOMI. No scleral icterus or conjunctival pallor. No lid lag or facial droop. CARDIOVASCULAR: Regular rate and rhythm. No obvious murmurs to auscultation. No chest tenderness to palpation. RESPIRATORY: No obvious rhonchi or wheezing. Clear to auscultation. Breath sounds equal bilaterally. GASTROINTESTINAL: Abdomen soft, non-tender, nondistended. BS normal. MUSCULOSKELETAL: Extremities without clubbing, cyanosis, or edema. No obvious deformities. NEUROLOGICAL: Awake, alert and oriented x4. No focal neurologic deficits. Moving both upper and lower extremities spontaneously. Laboratory Laboratory Tests Test 11/06/17 01:31 White Blood Count 9.3 Red Blood Count 4.54 Hemoglobin 13.9 Hematocrit 40.6 Mean Corpuscular Volume 89.4 Mean Corpuscular Hemoglobin 30.6 Mean Corpuscular Hemoglobin Concent 34.3 Red Cell Distribution Width 13.9 Platelet Count 227 Mean Platelet Volume 7.9 Neutrophils (%) (Auto) 59.3 Lymphocytes (%) (Auto) 26.0 Monocytes (%) (Auto) 8.8 Eosinophils (%) (Auto) 5.0 Basophils (%) (Auto) 0.9 Neutrophils # (Auto) 5.5 Lymphocytes # (Auto) 2.4 Monocytes # (Auto) 0.8 Eosinophils # (Auto) 0.5 Basophils # (Auto) 0.1 CBC Comment DIFF FINAL Differential Comment Prothrombin Time 10.3 Prothromb Time International Ratio 1.0 Activated Partial Thromboplast Time 26.4 Blood Urea Nitrogen 14 Creatinine 0.89 Random Glucose 104 Calcium Level 9.1 Magnesium Level 2.2 Sodium Level 138 Potassium Level 4.2 Chloride Level 104 Carbon Dioxide Level 30.1 Anion Gap 4 Estimat Glomerular Filtration Rate 61 Total Creatine Kinase 388 Creatine Kinase MB 4.9 Creatine Kinase MB % 1.3 Troponin I 0.07 Result Diagram: 11/06/1713011/06/17130 Caprini VTE Risk Assessment Caprini VTE Risk Assessment: No/Low Risk (score <= 1) Caprini Risk Assessment Model Point Value = 1 Point Value = 2 Point Value = 3 Point Value = 5 Age 41-60 Minor surgery BMI > 25 kg/m2 Swollen legs Varicose veins or History of unexplained or recurrent spontaneous Oral contraceptives or hormone replacement Sepsis (< 1 month) Serious lung disease, including pneumonia (< 1 month) Abnormal pulmonary function Acute myocardial infarction Congestive heart failure (< 1 month) History of inflammatory bowel disease Medical patient at bed rest Age 61-74 Arthroscopic surgery Major open surgery (> 45 min) Laparoscopic surgery (> 45 min) Malignancy Confined to bed (> 72 hours) Immobilizing plaster cast Central venous access Age >= 75 History of VTE Family history of VTE Factor V Leiden Prothrombin [id number] Lupus anticoagulant Anticardiolipin antibodies Elevated serum homocysteine Heparin-induced thrombocytopenia Other congenital or acquired thrombophilia Stroke (< 1 month) Elective arthroplasty Hip, pelvis, or leg fracture Acute spinal cord injury (< 1 month) Prophylaxis Regimen Total Risk Factor Score Risk Level Prophylaxis Regimen 0-1 Low Early ambulation 2 Moderate Order ONE of the following: *Sequential Compression Device (SCD) *Heparin 5000 units SQ BID 3-4 Higher Order ONE of the following medications: *Heparin 5000 units SQ TID *Enoxaparin/Lovenox 40 mg SQ daily (WT < 150 kg, CrCl > 30 mL/min) *Enoxaparin/Lovenox 30 mg SQ daily (WT < 150 kg, CrCl > 10-29 mL/min) *Enoxaparin/Lovenox 30 mg SQ BID (WT < 150 kg, CrCl > 30 mL/min) AND/OR *Sequential Compression Device (SCD) 5 or more Highest Order ONE of the following medications: *Heparin 5000 units SQ TID (Preferred with Epidurals) *Enoxaparin/Lovenox 40 mg SQ daily (WT < 150 kg, CrCl > 30 mL/min) *Enoxaparin/Lovenox 30 mg SQ daily (WT < 150 kg, CrCl > 10-29 mL/min) *Enoxaparin/Lovenox 30 mg SQ BID (WT < 150 kg, CrCl > 30 mL/min) AND *Sequential Compression Device (SCD) Assessment and Plan Problem List: (1) Chest pain ICD Code: R07.9 - Chest pain Status: Acute (2) Elevated troponin ICD Code: R74.8 - Elevated troponin level Status: Acute (3) HTN (hypertension) ICD Code: I10 - Essential (primary) hypertension Status: Acute Assessment and Plan A/P: 1. Chest Pain: acute onset of chest pain, substernal, occasional radiation, s/ p NTG/Morphine in ER w/ improvement, currently chest pain free. Will admit for Observation, place on Telemetry. Continue NTG/Morphine as needed. CXR w/ cardiomegaly, images reviewed by me. 2. Elevated Trop: Trop 0.07, h/o CAD, r/o ACS w/ ischemia. Pt non-compliant w / Plavix for approx 2 wks, will resume home ASA, Plavix. Check serial cardiac enzymes for trend, B-Bryant, Statin. Follows w/ Dr. Elizabeth as outpatient, will consult for further eval/recommendations. 3. HTN: Uncontrolled. Secondary to non-compliance w/ medication. S/p Metoprolol in ER w/ improvement. Resume home medications, monitor BP closely. 4. DVT Prophylaxis: SCD/Teds. 5. Social work for d/c planning as needed. 6. Case discussed at length w/ ER physician, labs/imaging/records reviewed by me. Christina Carlos MD Nov 06, 2017 03:14
[2017-11-06] MEDS: SODIUM CHLOR 0.9% 1000 ML INJ 1,000 ML IV SCH ×3 (03:54→22:14)
[2017-11-06] MEDS: DOCUSATE SODIUM 50 MG/SENNA 8.6 MG TAB PO SCH ×2 (08:36→22:14)
[2017-11-06] MEDS: CLOPIDOGREL 75 MG TAB PO SCH (08:36)
[2017-11-06] MEDS: METOPROLOL TARTRATE 25 MG TAB PO SCH ×2 (08:37→22:13)
[2017-11-06] MEDS: ISOSORBIDE MONONITRATE 30 MG TAB PO SCH (08:37)
[2017-11-06] MEDS: ASPIRIN 81 MG CHEW TAB CHEW SCH (08:37)
[2017-11-06] MEDS: SODIUM CHLORIDE 0.9% FLUSH 10 ML FLUSH IV FLUSH SCH ×2 (08:37→21:00)
[2017-11-06] MEDS: LOSARTAN 50 MG TAB PO SCH (08:37)
[2017-11-06] MEDS ORDERED: FAMOTIDINE 20 MG TAB PO SCH (09:00)
--- NOTE | 2017-11-06 09:13 | HHI.PR ---
Subjective Remarks This is a pleasant 82 y/o Female with hypertension, Breast Cancer, hyperlipidemia, CAD who came to ER with Chest pain S/p Cardiac Cath 02/23/[address] Elizabeth w/ mild to moderate CAD, patent stent mid LAD w/ recommendation for medical therapy. has status post CABG. Patient was admitted today, discussed with doctor Clara will give recommendations, no nausea, vomit or diarrhea. has Chest pain Oppressive sensation but troponin trending down. Objective Vital Signs Date Time Temp Pulse Resp B/P (MAP) Pulse Ox O2 Delivery O2 Flow Rate FiO2 11/06/17 05:18 Room Air 11/06/17 05:00 67 11/06/17 04:36 11/06/17 04:30 97.2 67 20 164/68 (100) 98 11/06/17 04:09 69 16 161/94 (116) 97 11/06/17 02:45 75 16 156/88 (110) 97 11/06/17 02:30 75 18 148/83 (104) 97 11/06/17 02:00 77 16 165/80 (108) 98 11/06/17 01:21 78 11/06/17 01:20 97.6 80 18 229/102 (144) 98 11/06/17 01:12 97.5 85 18 214/160 (178) 97 Room Air Result Diagram: 11/06/17 0131 11/06/17 0131 Imaging Last Impressions Chest X-Ray 11/06/17 0125 Signed Impressions: Service Date/Time: Monday, November 06, 2017 01:32 - CONCLUSION: Cardiomegaly. Stefan Selby MD Procedures None Other Results Laboratory Tests Test 11/06/17 01:31 White Blood Count 9.3 TH/MM3 Red Blood Count 4.54 MIL/MM3 Hemoglobin 13.9 GM/DL Hematocrit 40.6 % Mean Corpuscular Volume 89.4 FL Mean Corpuscular Hemoglobin 30.6 PG Mean Corpuscular Hemoglobin Concent 34.3 % Red Cell Distribution Width 13.9 % Platelet Count 227 TH/MM3 Mean Platelet Volume 7.9 FL Neutrophils (%) (Auto) 59.3 % Lymphocytes (%) (Auto) 26.0 % Monocytes (%) (Auto) 8.8 % Eosinophils (%) (Auto) 5.0 % Basophils (%) (Auto) 0.9 % Neutrophils # (Auto) 5.5 TH/MM3 Lymphocytes # (Auto) 2.4 TH/MM3 Monocytes # (Auto) 0.8 TH/MM3 Eosinophils # (Auto) 0.5 TH/MM3 Basophils # (Auto) 0.1 TH/MM3 CBC Comment DIFF FINAL Differential Comment Prothrombin Time 10.3 SEC Prothromb Time International Ratio 1.0 RATIO Activated Partial Thromboplast Time 26.4 SEC Blood Urea Nitrogen 14 MG/DL Creatinine 0.89 MG/DL Random Glucose 104 MG/DL Calcium Level 9.1 MG/DL Magnesium Level 2.2 MG/DL Sodium Level 138 MEQ/L Potassium Level 4.2 MEQ/L Chloride Level 104 MEQ/L Carbon Dioxide Level 30.1 MEQ/L Anion Gap 4 MEQ/L Estimat Glomerular Filtration Rate 61 ML/MIN Total Creatine Kinase 388 U/L Creatine Kinase MB 4.9 NG/ML Creatine Kinase MB % 1.3 % Troponin I 0.07 NG/ML Objective Remarks GENERAL: Pleasant elderly white female in no acute distress. Daughter bedside HEENT: PERRLA, EOMI. No scleral icterus or conjunctival pallor. No lid lag or facial droop. CARDIOVASCULAR: Regular rate and rhythm. No obvious murmurs to auscultation. No chest tenderness to palpation. RESPIRATORY: No obvious rhonchi or wheezing. Clear to auscultation. Breath sounds equal bilaterally. GASTROINTESTINAL: Abdomen soft, non-tender, nondistended. BS normal. MUSCULOSKELETAL: Extremities without clubbing, cyanosis, or edema. No obvious deformities. NEUROLOGICAL: Awake, alert and oriented x4. No focal neurologic deficits. Moving both upper and lower extremities spontaneously. Medications and IVs Current Medications Medications (Trade) Dose Ordered Sig/Billie Route Start Time Stop Time Status Last Admin Sodium Chloride 1,000 ml @ 100 mls/hr Q10H IV 11/06/17 02:49 11/06/17 03:54 (NS Flush) 2 ml UNSCH PRN IV FLUSH 11/06/17 03:00 (NS Flush) 2 ml BID IV FLUSH 11/06/17 09:00 11/06/17 08:37 (Zofran Inj) 4 mg Q6H PRN IVP 11/06/17 03:00 (Tylenol) 650 mg Q6H PRN PO 11/06/17 03:00 ([place] 5-325 Mg) 1 tab Q4H PRN PO 11/06/17 03:00 (Morphine Inj) 2 mg Q3H PRN IV PUSH 11/06/17 03:00 (Dayana-Colace) 1 tab BID PO 11/06/17 09:00 11/06/17 08:36 (Milk Of Magnesia Liq) 30 ml Q12H PRN PO 11/06/17 03:00 (Senokot) 17.2 mg Q12H PRN PO 11/06/17 03:00 (Dulcolax Supp) 10 mg DAILY PRN RECTAL 11/06/17 03:00 (Lactulose Liq) 30 ml DAILY PRN PO 11/06/17 03:00 (Aspirin Chew) 81 mg DAILY CHEW 11/06/17 09:00 11/06/17 08:37 (Lipitor) 80 mg HS PO 11/06/17 21:00 (Plavix) 75 mg DAILY PO 11/06/17 09:00 11/06/17 08:36 (Imdur) 30 mg DAILY PO 11/06/17 09:00 11/06/17 08:37 (Cozaar) 100 mg DAILY PO 11/06/17 09:00 11/06/17 08:37 (Lopressor) 25 mg BID PO 11/06/17 09:00 11/06/17 08:37 (Nitroglycerin 2% Oint) 0.5 inch Q6HR PRN TOPICAL 11/06/17 03:00 (Pepcid) 10 mg BID PO 11/06/17 21:00 A/P Assessment and Plan (1) Chest pain ICD Code: R07.9 - Chest pain Status: Acute (2) Elevated troponin ICD Code: R74.8 - Elevated troponin level Status: Acute (3) HTN (hypertension) ICD Code: I10 - Essential (primary) hypertension Status: Acute 1. Chest Pain: acute onset of chest pain, substernal, occasional radiation, s/ p NTG/Morphine in ER w/ improvement, currently chest pain free. Will admit for Observation, place on Telemetry. Continue NTG/Morphine as needed. CXR w/ cardiomegaly, Troponin trending down, now 0.06, discussed with her Primary instrument repair specialist doctor Clara will see the patient . 2. Elevated Trop: Trop 0.07, h/o CAD, r/o ACS w/ ischemia. Pt non-compliant w / Plavix for approx 2 wks, will resume home ASA, Plavix. Check serial cardiac enzymes for trend, B-[place], Statin. 3. HTN: Uncontrolled. Secondary to non-compliance w/ medication. S/p Metoprolol in ER w/ improvement. Resume home medications, monitor BP closely. 4. Obesity strongly recommended diet and exercise as outpatient. DVT Prophylaxis: SCD/Teds. Social work for d/c planning as needed. discussed with patient and her Daughter in the room. Discharge Planning Once cleared by instrument repair specialist. Vasile Ann MD Nov 06, 2017 09:12
--- NOTE | 2017-11-06 14:07 | EKG ---
Date Performed: 11/06/2017 Time Performed: 01:24:25 PTAGE: 82 years EKG: ECTOPIC ATRIAL RHYTHM ST DEVIATION AND MODERATE T-WAVE ABNORMALITY, CONSIDER LATERAL ISCHEM IA ABNORMAL ECG PREVIOUS TRACING : 11/06/2017 01.21 Inferior septal myocardial infarction - age undetermined, b ut no significant change since prior tracing. DOCTOR: Andrew George Interpretating Date/Time 11/06/2017 14:05:33
--- NOTE | 2017-11-06 20:52 | MB ---
cc: ADRIANE PARKINSON MD DATE OF CONSULTATION 11/06/17 HISTORY OF PRESENT ILLNESS Ms. Flores is an 82 year old white female with a history of hypertension, coronary artery disease. She presented with acute substernal chest discomfort radiating into her neck. She has not been taking her medications for the last two weeks. Her last catheterization in 02/2017 showed mild to moderate coronary disease and patent stent in the mid LAD. The patient is pain free today and is feeling better. She was severely hypertensive on admission with systolic blood pressure of 240. PAST MEDICAL HISTORY 1. Hypertension, 2. Breast cancer, 3. Dyslipidemia 4. Coronary artery disease and mid LAD stenting with patent stent on the last cardiac catheterization in 02/2017. 5. History of cardiac surgery 6. Hysterectomy 7. Left mastectomy. ALLERGIES LISINOPRIL SOCIAL HISTORY She does not smoke, does not drink alcohol. FAMILY HISTORY Negative for heart disease. MEDICATIONS 1. Plavix 2. Atorvastatin 3. Isosorbide mononitrate. 4. Nitroglycerin p.r.n. 5. Metoprolol. 6. Start on baby aspirin. 7. Tylenol. 8. Codeine 9. Potassium chloride. 10. Zantac 11. HydroDIURIL. PHYSICAL EXAMINATION VITAL SIGNS: Blood pressure 153/74, pulse 74 and regular. HEENT: Negative. 2+ carotid upstrokes. No bruits. LUNGS: Clear. HEART: Regular with no murmur, gallop or rub. ABDOMEN: Soft. No bruits. EXTREMITIES: Without edema 1-2+ distal pulses. NEUROLOGIC: Grossly nonfocal. CARDIOLOGY STUDIES EKG was reviewed and showed normal sinus rhythm. Nonspecific ST-T changes. This is unchanged from the previous EKG. LABORATORY DATA Hemoglobin 13.9, potassium 4.2, creatinine 0.9, troponin 0.07. And 0.06. CK-MB index normal. DIAGNOSES 1. Chest pain. 2. Mildly abnormal troponin. 3. Severe hypertension. 4. Coronary artery disease, history of LAD stenting. 5. Dyslipidemia. DISPOSITION Ms. Flores will be monitored on telemetry. Her chest pain is now resolved. She has slight troponin elevation which has not been trending in either direction. This may be related to her severely elevated blood pressure on admission. This is likely related to her recent noncompliance with her medical care. I recommend to continue and titrate her antihypertensive medications. She will be monitored on telemetry. I will follow her for cardiology during her hospitalization. I will also see her back for followup in our office after discharge. MD JOSE Malcolm/ /4:44 PM /8:32 PM KELLEN
[2017-11-06] MEDS: FAMOTIDINE 20 MG TAB PO SCH (22:14)
[2017-11-06] MEDS: ATORVASTATIN 80 MG TAB PO SCH (22:14)
[2017-11-07] VITALS (12 sets, daily range): BP systolic 162–187; BP diastolic 79–91; PULSE 67–77; RESP 18–20; TEMP 97.4–97.9; O2SAT 91–98
[2017-11-07] MEDS: FAMOTIDINE 20 MG TAB PO SCH ×2 (08:34→21:01)
[2017-11-07] MEDS: SODIUM CHLOR 0.9% 1000 ML INJ 1,000 ML IV SCH (08:34)
[2017-11-07] MEDS: DOCUSATE SODIUM 50 MG/SENNA 8.6 MG TAB PO SCH ×2 (08:34→21:01)
[2017-11-07] MEDS: ISOSORBIDE MONONITRATE 30 MG TAB PO SCH (08:34)
[2017-11-07] MEDS: METOPROLOL TARTRATE 25 MG TAB PO SCH ×2 (08:34→21:01)
[2017-11-07] MEDS: SODIUM CHLORIDE 0.9% FLUSH 10 ML FLUSH IV FLUSH SCH ×2 (08:35→21:02)
[2017-11-07] MEDS: CLOPIDOGREL 75 MG TAB PO SCH (08:35)
[2017-11-07] MEDS: LOSARTAN 50 MG TAB PO SCH (08:35)
[2017-11-07] MEDS: ASPIRIN 81 MG CHEW TAB CHEW SCH (08:35)
--- NOTE | 2017-11-07 09:25 | HHI.PR ---
Subjective Remarks This is a pleasant 82 y/o Female with hypertension, Breast Cancer, hyperlipidemia, CAD who came to ER with Chest pain S/p Cardiac Cath 02/23/[address] Elizabeth w/ mild to moderate CAD, patent stent mid LAD w/ recommendation for medical therapy. has status post CABG. 11/07: Seen by special effects specialist with diagnosis of Chest pain, probable secondary to Hypertensive Emergency on admission stable in her bedroom, chest pain free. discussed about non compliance issues. Objective Vital Signs Date Time Temp Pulse Resp B/P (MAP) Pulse Ox O2 Delivery O2 Flow Rate FiO2 11/07/17 08:45 162/90 (114) 11/07/17 04:00 97.4 67 18 172/84 (113) 98 11/07/17 04:00 67 11/07/17 00:00 69 11/07/17 00:00 97.6 67 18 169/85 (113) 98 11/06/17 20:00 75 11/06/17 20:00 97.6 70 18 168/78 (108) 97 11/06/17 19:00 98 Nasal Cannula 2.00 11/06/17 16:00 97.9 77 20 160/80 (106) 96 11/06/17 12:00 97.5 74 20 156/74 (101) 96 I/O 11/06/17 11/06/17 11/06/17 11/07/17 11/07/17 11/07/17 07:00 15:00 23:00 07:00 15:00 23:00 Intake Total 874 ml 240 ml 1000 ml Balance 874 ml 240 ml 1000 ml Intake Oral 240 ml IV Total 874 ml 1000 ml # Voids 1 1 7 1 # Bowel Movements 0 1 Result Diagram: 11/06/17 0131 11/06/17 013 Imaging Last Impressions Chest X-Ray 11/06/17 0125 Signed Impressions: Service Date/Time: Monday, November 06, 2017 01:32 - CONCLUSION: Cardiomegaly. Stefan Selby MD Procedures None Other Results Laboratory Tests Test 11/06/17 01:31 11/06/17 18:47 White Blood Count 9.3 TH/MM3 Red Blood Count 4.54 MIL/MM3 Hemoglobin 13.9 GM/DL Hematocrit 40.6 % Mean Corpuscular Volume 89.4 FL Mean Corpuscular Hemoglobin 30.6 PG Mean Corpuscular Hemoglobin Concent 34.3 % Red Cell Distribution Width 13.9 % Platelet Count 227 TH/MM3 Mean Platelet Volume 7.9 FL Neutrophils (%) (Auto) 59.3 % Lymphocytes (%) (Auto) 26.0 % Monocytes (%) (Auto) 8.8 % Eosinophils (%) (Auto) 5.0 % Basophils (%) (Auto) 0.9 % Neutrophils # (Auto) 5.5 TH/MM3 Lymphocytes # (Auto) 2.4 TH/MM3 Monocytes # (Auto) 0.8 TH/MM3 Eosinophils # (Auto) 0.5 TH/MM3 Basophils # (Auto) 0.1 TH/MM3 CBC Comment DIFF FINAL Differential Comment Prothrombin Time 10.3 SEC Prothromb Time International Ratio 1.0 RATIO Activated Partial Thromboplast Time 26.4 SEC Blood Urea Nitrogen 14 MG/DL Creatinine 0.89 MG/DL Random Glucose 104 MG/DL Calcium Level 9.1 MG/DL Magnesium Level 2.2 MG/DL Sodium Level 138 MEQ/L Potassium Level 4.2 MEQ/L Chloride Level 104 MEQ/L Carbon Dioxide Level 30.1 MEQ/L Anion Gap 4 MEQ/L Estimat Glomerular Filtration Rate 61 ML/MIN Total Creatine Kinase 388 U/L Creatine Kinase MB 4.9 NG/ML Creatine Kinase MB % 1.3 % Troponin I 0.06 NG/ML Objective Remarks GENERAL: No acute distress. HEENT: PERRLA, EOMI. No scleral icterus or conjunctival pallor. No lid lag or facial droop. CARDIOVASCULAR: Regular rate and rhythm. No obvious murmurs to auscultation. No chest tenderness to palpation. RESPIRATORY: No obvious rhonchi or wheezing. Clear to auscultation. Breath sounds equal bilaterally. GASTROINTESTINAL: Abdomen soft, non-tender, nondistended. BS normal. MUSCULOSKELETAL: Extremities without clubbing, cyanosis, or edema. No obvious deformities. NEUROLOGICAL: Awake, alert and oriented x4. No focal neurologic deficits. Moving both upper and lower extremities spontaneously. Medications and IVs Current Medications Medications (Trade) Dose Ordered Sig/Billie Route Start Time Stop Time Status Last Admin Sodium Chloride 1,000 ml @ 100 mls/hr Q10H IV 11/06/17 02:49 11/07/17 08:34 (NS Flush) 2 ml UNSCH PRN IV FLUSH 11/06/17 03:00 (NS Flush) 2 ml BID IV FLUSH 11/06/17 09:00 11/06/17 08:37 (Zofran Inj) 4 mg Q6H PRN IVP 11/06/17 03:00 (Tylenol) 650 mg Q6H PRN PO 11/06/17 03:00 ([place] 5-325 Mg) 1 tab Q4H PRN PO 11/06/17 03:00 (Morphine Inj) 2 mg Q3H PRN IV PUSH 11/06/17 03:00 (Dayana-Colace) 1 tab BID PO 11/06/17 09:00 11/07/17 08:34 (Milk Of Magnesia Liq) 30 ml Q12H PRN PO 11/06/17 03:00 (Senokot) 17.2 mg Q12H PRN PO 11/06/17 03:00 (Dulcolax Supp) 10 mg DAILY PRN RECTAL 11/06/17 03:00 (Lactulose Liq) 30 ml DAILY PRN PO 11/06/17 03:00 (Aspirin Chew) 81 mg DAILY CHEW 11/06/17 09:00 11/07/17 08:35 (Lipitor) 80 mg HS PO 11/06/17 21:00 11/06/17 22:14 (Plavix) 75 mg DAILY PO 11/06/17 09:00 11/07/17 08:35 (Imdur) 30 mg DAILY PO 11/06/17 09:00 11/07/17 08:34 (Cozaar) 100 mg DAILY PO 11/06/17 09:00 11/07/17 08:35 (Lopressor) 25 mg BID PO 11/06/17 09:00 11/07/17 08:34 (Nitroglycerin 2% Oint) 0.5 inch Q6HR PRN TOPICAL 11/06/17 03:00 (Pepcid) 10 mg BID PO 11/06/17 21:00 11/07/17 08:34 A/P Assessment and Plan (1) Chest pain ICD Code: R07.9 - Chest pain Status: Acute (2) Elevated troponin ICD Code: R74.8 - Elevated troponin level Status: Acute (3) HTN (hypertension) ICD Code: I10 - Essential (primary) hypertension Status: Acute 1. Chest Pain: Cardiology following, Troponin 0.06 2. Elevated Trop: Trop 0.06 now trending down., h/o CAD, r/o ACS w/ ischemia. , will resume home ASA, Plavix. Check serial cardiac enzymes for trend, B- [place], Statin. 3. HTN: Uncontrolled. increased Isosorbide mononitrate to 60 mg given one dose now. also will use Clonidine for systolic blood pressure over 160 mm Hg. 4. Obesity strongly recommended diet and exercise as outpatient. 5. Medical Non compliance. DVT Prophylaxis: Lovenox. Social work for d/c planning as needed. discussed with patient and Nurse in the room Miss Andres Discharge Planning Once cleared by special effects specialist. Vasile Ann MD Nov 07, 2017 09:25
[2017-11-07 11:46] LABS: AUTOMATED NEUTROPHIL # 5.3 TH/MM3 (1.8-7.7); BASOPHIL # 0.1 TH/MM3 (0-0.2); BASOPHIL % 0.8 % (0.0-2.0); EOSINOPHIL # 0.3 TH/MM3 (0-0.4); EOSINOPHIL % 4.4 % (0.0-4.0); HEMATOCRIT 38.8 % (35.0-46.0); HEMOGLOBIN 12.9 GM/DL (11.6-15.3); LYMPH % 18.3 % (9.0-44.0); LYMPHOCYTE # 1.4 TH/MM3 (1.0-4.8); MEAN CELL VOLUME 91.2 FL (80.0-100.0); MEAN CORPUSCULAR HEMOGLOBIN 30.3 PG (27.0-34.0); MEAN CORPUSCULAR HGB CONC 33.2 % (32.0-36.0); MONO % 6.2 % (0.0-8.0); MONOCYTE # 0.5 TH/MM3 (0-0.9); NEUT % 70.3 % (16.0-70.0); PLATELET COUNT 204 TH/MM3 (150-450); RED BLOOD COUNT 4.25 MIL/MM3 (4.00-5.30); RED CELL DISTRIBUTION WIDTH 13.9 % (11.6-17.2); WHITE BLOOD COUNT 7.6 TH/MM3 (4.0-11.0)
[2017-11-07 12:02] LABS: ALBUMIN 3.6 GM/DL (3.4-5.0); AST (GOT) 17 U/L (15-37); BICARBONATE 28.1 MEQ/L (21.0-32.0); BLOOD UREA NITROGEN 11 MG/DL (7-18); CALCIUM 8.3 MG/DL (8.5-10.1); CHLORIDE 104 MEQ/L (98-107); CREATININE 0.93 MG/DL (0.50-1.00); GLOMERULAR FILTRATION RATE 58 ML/MIN (>89); GLUCOSE,RANDOM 126 MG/DL (74-106); SODIUM (NA) 140 MEQ/L (136-145)
[2017-11-07 12:04] LABS: ALT (GPT) 20 U/L (10-53)
[2017-11-07 12:16] LABS: ALKALINE PHOSPHATASE 63 U/L (45-117); TOTAL BILIRUBIN ADULT 0.8 MG/DL (0.2-1.0); TOTAL PROTEIN 7.1 GM/DL (6.4-8.2)
[2017-11-07] MEDS ORDERED: ISOSORBIDE MONONITRATE 30 MG TAB PO ONE (16:15)
[2017-11-07] MEDS ORDERED: cloNIDine HCL 0.1 MG TAB PO PRN (16:15)
--- NOTE | 2017-11-07 17:15 | PD.CARD.PN ---
Subjective Subjective Remarks No CP or SOB, feels much better Objective Medications Current Medications Medications (Trade) Dose Ordered Sig/Billie Route Start Time Stop Time Status Last Admin (NS Flush) 2 ml UNSCH PRN IV FLUSH 11/06/17 03:00 (NS Flush) 2 ml BID IV FLUSH 11/06/17 09:00 11/06/17 08:37 (Zofran Inj) 4 mg Q6H PRN IVP 11/06/17 03:00 (Tylenol) 650 mg Q6H PRN PO 11/06/17 03:00 ([place] 5-325 Mg) 1 tab Q4H PRN PO 11/06/17 03:00 (Morphine Inj) 2 mg Q3H PRN IV PUSH 11/06/17 03:00 (Dayana-Colace) 1 tab BID PO 11/06/17 09:00 11/07/17 08:34 (Milk Of Magnesia Liq) 30 ml Q12H PRN PO 11/06/17 03:00 (Senokot) 17.2 mg Q12H PRN PO 11/06/17 03:00 (Dulcolax Supp) 10 mg DAILY PRN RECTAL 11/06/17 03:00 (Lactulose Liq) 30 ml DAILY PRN PO 11/06/17 03:00 (Aspirin Chew) 81 mg DAILY CHEW 11/06/17 09:00 11/07/17 08:35 (Lipitor) 80 mg HS PO 11/06/17 21:00 11/06/17 22:14 (Plavix) 75 mg DAILY PO 11/06/17 09:00 11/07/17 08:35 (Cozaar) 100 mg DAILY PO 11/06/17 09:00 11/07/17 08:35 (Lopressor) 25 mg BID PO 11/06/17 09:00 11/07/17 08:34 (Nitroglycerin 2% Oint) 0.5 inch Q6HR PRN TOPICAL 11/06/17 03:00 (Pepcid) 10 mg BID PO 11/06/17 21:00 11/07/17 08:34 (Imdur) 60 mg DAILY PO 11/08/17 09:00 ([place]) 0.1 mg Q8HR PRN PO 11/07/17 16:15 (Lovenox Inj) 40 mg Q24H SQ 11/07/17 18:00 Vital Signs / I&O Vital Signs Date Time Temp Pulse Resp B/P (MAP) Pulse Ox O2 Delivery O2 Flow Rate FiO2 11/07/17 12:00 97.7 75 20 187/91 (123) 95 11/07/17 08:45 162/90 (114) 11/07/17 08:00 97.4 75 20 179/89 (119) 98 11/07/17 04:00 97.4 67 18 172/84 (113) 98 11/07/17 04:00 67 11/07/17 00:00 69 11/07/17 00:00 97.6 67 18 169/85 (113) 98 11/06/17 20:00 75 11/06/17 20:00 97.6 70 18 168/78 (108) 97 11/06/17 19:00 98 Nasal Cannula 2.00 I/O 11/06/17 11/06/17 11/06/17 11/07/17 11/07/17 11/07/17 07:00 15:00 23:00 07:00 15:00 23:00 Intake Total 874 ml 240 ml 1000 ml Balance 874 ml 240 ml 1000 ml Intake Oral 240 ml IV Total 874 ml 1000 ml # Voids 1 1 7 1 # Bowel Movements 0 1 Physical Exam GENERAL: In NAD SKIN: Warm and dry. HEAD: Normocephalic. EYES: No scleral icterus. No injection or drainage. NECK: Supple, trachea midline. No JVD or lymphadenopathy. CARDIOVASCULAR: Regular rate and rhythm without murmurs, gallops, or rubs. RESPIRATORY: Breath sounds equal bilaterally. No accessory muscle use. GASTROINTESTINAL: Abdomen soft, non-tender, nondistended. MUSCULOSKELETAL: No cyanosis, or edema. Laboratory Laboratory Tests Test 11/06/17 18:47 11/07/17 10:19 Troponin I 0.06 NG/ML White Blood Count 7.6 TH/MM3 Red Blood Count 4.25 MIL/MM3 Hemoglobin 12.9 GM/DL Hematocrit 38.8 % Mean Corpuscular Volume 91.2 FL Mean Corpuscular Hemoglobin 30.3 PG Mean Corpuscular Hemoglobin Concent 33.2 % Red Cell Distribution Width 13.9 % Platelet Count 204 TH/MM3 Mean Platelet Volume 8.0 FL Neutrophils (%) (Auto) 70.3 % Lymphocytes (%) (Auto) 18.3 % Monocytes (%) (Auto) 6.2 % Eosinophils (%) (Auto) 4.4 % Basophils (%) (Auto) 0.8 % Neutrophils # (Auto) 5.3 TH/MM3 Lymphocytes # (Auto) 1.4 TH/MM3 Monocytes # (Auto) 0.5 TH/MM3 Eosinophils # (Auto) 0.3 TH/MM3 Basophils # (Auto) 0.1 TH/MM3 CBC Comment DIFF FINAL Differential Comment Blood Urea Nitrogen 11 MG/DL Creatinine 0.93 MG/DL Random Glucose 126 MG/DL Total Protein 7.1 GM/DL Albumin 3.6 GM/DL Calcium Level 8.3 MG/DL Alkaline Phosphatase 63 U/L Aspartate Amino Transf (AST/SGOT) 17 U/L Alanine Aminotransferase (ALT/SGPT) 20 U/L Total Bilirubin 0.8 MG/DL Sodium Level 140 MEQ/L Potassium Level 3.9 MEQ/L Chloride Level 104 MEQ/L Carbon Dioxide Level 28.1 MEQ/L Anion Gap 8 MEQ/L Estimat Glomerular Filtration Rate 58 ML/MIN Assessment and Plan Problem List: (1) Uncontrolled HTN Status: Acute (2) CAD (coronary artery disease) ICD Codes: I25.10 - Atherosclerotic heart disease of [place] coronary artery without angina pectoris Status: Acute (3) Presence of stent in LAD coronary artery ICD Codes: Z95.5 - Presence of coronary angioplasty implant and graft Status: Acute (4) Elevated troponin ICD Codes: R74.8 - Elevated troponin level Status: Acute (5) Noncompliance with medications ICD Codes: Z91.14 - Patient's other noncompliance with medication regimen Status: Acute (6) HTN (hypertension) ICD Codes: I10 - Essential (primary) hypertension Status: Acute (7) Hyperlipemia ICD Codes: E78.5 - Hyperlipidemia, unspecified Status: Acute (8) GERD (gastroesophageal reflux disease) ICD Codes: K21.9 - Gastro-esophageal reflux disease without esophagitis Status: Acute Assessment and Plan Troponin slightly elevated, but no trending. Doubt ACS. Symptoms resolved. Still hypertensive, titrate antihypertensive tx. I stressed the importance of compliance with medical therapy. Anticipate discharge home. Will schedule outpt f/u after discharge. Problem Qualifiers (1) CAD (coronary artery disease): Qualified Codes: I25.10 - Atherosclerotic heart disease of [place] coronary artery without angina pectoris Nai Elizabeth MD Nov 07, 2017 17:14
[2017-11-07] MEDS ORDERED: ENOXAPARIN SODIUM 40 MG/0.4 ML SYRINGE SQ SCH (18:00)
[2017-11-07] MEDS: ATORVASTATIN 80 MG TAB PO SCH (21:02)
[2017-11-08] VITALS: BP 120/57; PULSE 73; RESP 18; TEMP 97.7; O2SAT 98
[2017-11-08 03:46] VITALS: PULSE 72
[2017-11-08 04:00] VITALS: BP 143/74; PULSE 72; RESP 18; TEMP 97.9; O2SAT 91
[2017-11-08 08:10] VITALS: BP 168/91; PULSE 75; RESP 18; TEMP 97.3; O2SAT 95
[2017-11-08] MEDS ORDERED: ISOSORBIDE MONONITRATE 30 MG TAB PO SCH (09:00)
[2017-11-08] MEDS: SODIUM CHLORIDE 0.9% FLUSH 10 ML FLUSH IV FLUSH SCH (09:00)
[2017-11-08] MEDS: LOSARTAN 50 MG TAB PO SCH (09:19)
[2017-11-08] MEDS: METOPROLOL TARTRATE 25 MG TAB PO SCH (09:19)
[2017-11-08] MEDS: ASPIRIN 81 MG CHEW TAB CHEW SCH (09:19)
[2017-11-08] MEDS: DOCUSATE SODIUM 50 MG/SENNA 8.6 MG TAB PO SCH (09:20)
[2017-11-08] MEDS: CLOPIDOGREL 75 MG TAB PO SCH (09:20)
[2017-11-08] MEDS: FAMOTIDINE 20 MG TAB PO SCH (09:20)
--- NOTE | 2017-11-08 09:27 | HHI.PR ---
Subjective Remarks This is a pleasant 82 y/o Female with hypertension, Breast Cancer, hyperlipidemia, CAD who came to ER with Chest pain S/p Cardiac Cath 02/23/[address] Elizabeth w/ mild to moderate CAD, patent stent mid LAD w/ recommendation for medical therapy. has status post CABG. 11/07: Seen by compound specialist with diagnosis of Chest pain, probable secondary to Hypertensive Emergency on admission stable in her bedroom, chest pain free. discussed about non compliance issues. 11/08: Stable, controlled blood pressure now, discussed for a long time with her and her daughter due to medical non compliance to make her understand the importance of her lifestyle modification. Objective Vital Signs Date Time Temp Pulse Resp B/P (MAP) Pulse Ox O2 Delivery O2 Flow Rate FiO2 11/08/17 09:24 95 Room Air 11/08/17 08:10 97.3 75 18 168/91 (116) 95 11/08/17 04:00 97.9 72 18 143/74 (97) 91 11/08/17 03:46 72 11/08/17 00:00 97.7 73 18 120/57 (78) 98 11/07/17 23:45 71 11/07/17 21:00 97.9 77 18 164/79 (107) 91 11/07/17 20:00 Room Air 11/07/17 19:46 73 11/07/17 19:30 180/90 (120) 11/07/17 16:30 168/90 (116) 11/07/17 16:03 97.9 74 20 181/89 (119) 96 11/07/17 16:00 73 11/07/17 12:00 73 11/07/17 12:00 97.7 75 20 187/91 (123) 95 I/O 11/07/17 11/07/17 11/07/17 11/08/17 11/08/17 11/08/17 07:00 15:00 23:00 07:00 15:00 23:00 Intake Total 1000 ml 1800 ml Output Total 2500 ml Balance 1000 ml -700 ml Intake Oral 1800 ml IV Total 1000 ml Output Urine Total 2500 ml # Voids 1 4 # Bowel Movements 1 0 Result Diagram: 11/07/17 1019 11/07/17 1019 Imaging Last Impressions Chest X-Ray 11/06/17 0125 Signed Impressions: Service Date/Time: Monday, November 06, 2017 01:32 - CONCLUSION: Cardiomegaly. Stefan Selby MD Procedures None Other Results Laboratory Tests Test 11/06/17 01:31 11/06/17 18:47 11/07/17 10:19 Prothrombin Time 10.3 SEC Prothromb Time International Ratio 1.0 RATIO Activated Partial Thromboplast Time 26.4 SEC Blood Urea Nitrogen 14 MG/DL 11 MG/DL Creatinine 0.89 MG/DL 0.93 MG/DL Random Glucose 104 MG/DL 126 MG/DL Calcium Level 9.1 MG/DL 8.3 MG/DL Magnesium Level 2.2 MG/DL Sodium Level 138 MEQ/L 140 MEQ/L Potassium Level 4.2 MEQ/L 3.9 MEQ/L Chloride Level 104 MEQ/L 104 MEQ/L Carbon Dioxide Level 30.1 MEQ/L 28.1 MEQ/L Total Creatine Kinase 388 U/L Creatine Kinase MB 4.9 NG/ML Creatine Kinase MB % 1.3 % Troponin I 0.06 NG/ML White Blood Count 7.6 TH/MM3 Red Blood Count 4.25 MIL/MM3 Hemoglobin 12.9 GM/DL Hematocrit 38.8 % Mean Corpuscular Volume 91.2 FL Mean Corpuscular Hemoglobin 30.3 PG Mean Corpuscular Hemoglobin Concent 33.2 % Red Cell Distribution Width 13.9 % Platelet Count 204 TH/MM3 Mean Platelet Volume 8.0 FL Neutrophils (%) (Auto) 70.3 % Lymphocytes (%) (Auto) 18.3 % Monocytes (%) (Auto) 6.2 % Eosinophils (%) (Auto) 4.4 % Basophils (%) (Auto) 0.8 % Neutrophils # (Auto) 5.3 TH/MM3 Lymphocytes # (Auto) 1.4 TH/MM3 Monocytes # (Auto) 0.5 TH/MM3 Eosinophils # (Auto) 0.3 TH/MM3 Basophils # (Auto) 0.1 TH/MM3 CBC Comment DIFF FINAL Differential Comment Total Protein 7.1 GM/DL Albumin 3.6 GM/DL Alkaline Phosphatase 63 U/L Aspartate Amino Transf (AST/SGOT) 17 U/L Alanine Aminotransferase (ALT/SGPT) 20 U/L Total Bilirubin 0.8 MG/DL Anion Gap 8 MEQ/L Estimat Glomerular Filtration Rate 58 ML/MIN Objective Remarks GENERAL: No acute distress. HEENT: PERRLA, EOMI. No scleral icterus or conjunctival pallor. No lid lag or facial droop. CARDIOVASCULAR: Regular rate and rhythm. No obvious murmurs to auscultation. No chest tenderness to palpation. RESPIRATORY: No obvious rhonchi or wheezing. Clear to auscultation. Breath sounds equal bilaterally. GASTROINTESTINAL: Abdomen soft, non-tender, nondistended. BS normal. MUSCULOSKELETAL: Extremities without clubbing, cyanosis, or edema. No obvious deformities. NEUROLOGICAL: Awake, alert and oriented x4. No focal neurologic deficits. Moving both upper and lower extremities spontaneously. Medications and IVs Current Medications Medications (Trade) Dose Ordered Sig/Billie Route Start Time Stop Time Status Last Admin (NS Flush) 2 ml UNSCH PRN IV FLUSH 11/06/17 03:00 (NS Flush) 2 ml BID IV FLUSH 11/06/17 09:00 11/07/17 21:02 (Zofran Inj) 4 mg Q6H PRN IVP 11/06/17 03:00 (Tylenol) 650 mg Q6H PRN PO 11/06/17 03:00 ([place] 5-325 Mg) 1 tab Q4H PRN PO 11/06/17 03:00 (Morphine Inj) 2 mg Q3H PRN IV PUSH 11/06/17 03:00 (Dayana-Colace) 1 tab BID PO 11/06/17 09:00 11/08/17 09:20 (Milk Of Magnesia Liq) 30 ml Q12H PRN PO 11/06/17 03:00 (Senokot) 17.2 mg Q12H PRN PO 11/06/17 03:00 (Dulcolax Supp) 10 mg DAILY PRN RECTAL 11/06/17 03:00 (Lactulose Liq) 30 ml DAILY PRN PO 11/06/17 03:00 (Aspirin Chew) 81 mg DAILY CHEW 11/06/17 09:00 11/08/17 09:19 (Lipitor) 80 mg HS PO 11/06/17 21:00 11/07/17 21:02 (Plavix) 75 mg DAILY PO 11/06/17 09:00 11/08/17 09:20 (Cozaar) 100 mg DAILY PO 11/06/17 09:00 11/08/17 09:19 (Lopressor) 25 mg BID PO 11/06/17 09:00 11/08/17 09:19 (Nitroglycerin 2% Oint) 0.5 inch Q6HR PRN TOPICAL 11/06/17 03:00 (Pepcid) 10 mg BID PO 11/06/17 21:00 11/08/17 09:20 (Imdur) 60 mg DAILY PO 11/08/17 09:00 11/08/17 09:19 (Catapres) 0.1 mg Q8HR PRN PO 11/07/17 16:15 11/07/17 19:45 (Lovenox Inj) 40 mg Q24H SQ 11/07/17 18:00 11/07/17 19:23 (Norvasc) 10 mg DAILY PO 11/08/17 09:00 11/08/17 09:20 A/P Assessment and Plan (1) Chest pain ICD Code: R07.9 - Chest pain Status: Acute (2) Elevated troponin ICD Code: R74.8 - Elevated troponin level Status: Acute (3) HTN (hypertension) ICD Code: I10 - Essential (primary) hypertension Status: Acute 1. Chest Pain: Cardiology following, Troponin 0.06 cleared by Cardiology for discharge no ACS 2. Elevated Trop: Trop 0.06 now trending down., h/o CAD, r/o ACS w/ ischemia. , will resume home ASA, Plavix. Check serial cardiac enzymes for trend, B- Bryant, Statin. will need to be compliance with medicines, thought by cardiology related to Hypertensive Emergency. 3. Hypertensive Emergency Improved, controlled today, increased Imdur to 60 mg daily and continue Amlodipine 10 mg daily, not on diuretics 4. Obesity strongly recommended diet and exercise as outpatient. 5. Medical Non compliance. DVT Prophylaxis: Lovenox. Social work for d/c planning as needed. discussed with patient, her Daughter and nurse Miss Gaxiola. Discharge Planning Discharge Home today. Vasile Ann MD Nov 08, 2017 09:27
[2017-11-08] MEDS ORDERED: PLAV75TA29 PO (11:10)
[2017-11-08] MEDS ORDERED: METO25TA3 PO (11:10)
[2017-11-08] MEDS ORDERED: LIPI80TA PO (11:10)
[2017-11-08] MEDS ORDERED: LOSA100T PO (11:10)
[2017-11-08] MEDS ORDERED: ISOS10TA3 PO (11:10)
[2017-11-08] MEDS ORDERED: AMLO10 PO (11:10)
--- NOTE | 2017-11-08 11:17 | HHI.DS ---
Discharge Summary Admission Date Nov 06, 2017 at 02:45 Discharge Date: Nov 08, 2017 Admitting Diagnosis ELEVATED TROPONIN, CHEST PAIN, HTN, MEDICATION NON-COMPLIANCE (1) Chest pain ICD Code: R07.9 - Chest pain Diagnosis: Principal Status: Acute (2) Elevated troponin ICD Code: R74.8 - Elevated troponin level Diagnosis: Principal Status: Acute (3) Hypertensive emergency ICD Code: I16.1 - Hypertensive emergency Diagnosis: Principal Procedures None Brief History - From Admission This is an 82-year-old female with a PMH of HTN, Breast CA, Hyperlipidemia and CAD who presented ear with complaints of chest pain starting earlier tonight. States pain started acutely, is substernal in location, constant, severe, 8/10, occasional radiation to left neck. S/p Cardiac Cath 02/23/[address] Elizabeth w/ mild to moderate CAD, patent stent mid LAD w/ recommendation for medical therapy. States she's been off Plavix and "three other medications" for approx 2wks secondary to insurance issues, daughter states she was "dropped" from Medicaid. S/p NTG, Morphine in ER w/ some improvement, currently chest pain free. On arrival, BP 240/160, HR 85, O2 sat 97% on RA, Afebrile. S/p Metoprolol in ER. CBC unremarkable. Chemistry unremarkable. CPK 388. Troponin 0.07. EKG with no acute ischemia. INR 1.0. CXR with cardiomegaly. CBC/BMP: 11/07/17 1019 11/07/17 1019 Significant Findings Laboratory Tests Test 11/06/17 01:31 11/06/17 10:35 11/06/17 18:47 11/07/17 10:19 Monocytes (%) (Auto) 8.8 % (0.0-8.0) Eosinophils (%) (Auto) 5.0 % (0.0-4.0) 4.4 % (0.0-4.0) Eosinophils # (Auto) 0.5 TH/MM3 (0-0.4) Anion Gap 4 MEQ/L (5-15) Estimat Glomerular Filtration Rate 61 ML/MIN (>89) 58 ML/MIN (>89) Total Creatine Kinase 388 U/L (26-192) Creatine Kinase MB 4.9 NG/ML (0.5-3.6) Troponin I 0.07 NG/ML (0.02-0.05) 0.06 NG/ML (0.02-0.05) 0.06 NG/ML (0.02-0.05) Neutrophils (%) (Auto) 70.3 % (16.0-70.0) Random Glucose 126 MG/DL (74-106) Calcium Level 8.3 MG/DL (8.5-10.1) Imaging Last Impressions Chest X-Ray 11/06/17 0125 Signed Impressions: Service Date/Time: Monday, November 06, 2017 01:32 - CONCLUSION: Cardiomegaly. Stefan Selby MD PE at Discharge GENERAL: No acute distress. HEENT: PERRLA, EOMI. No scleral icterus or conjunctival pallor. No lid lag or facial droop. CARDIOVASCULAR: Regular rate and rhythm. No obvious murmurs to auscultation. No chest tenderness to palpation. RESPIRATORY: No obvious rhonchi or wheezing. Clear to auscultation. Breath sounds equal bilaterally. GASTROINTESTINAL: Abdomen soft, non-tender, nondistended. BS normal. MUSCULOSKELETAL: Extremities without clubbing, cyanosis, or edema. No obvious deformities. NEUROLOGICAL: Awake, alert and oriented x4. No focal neurologic deficits. Moving both upper and lower extremities spontaneously. Hospital Course This is a pleasant 82 y/o Female with hypertension, Breast Cancer, hyperlipidemia, CAD who came to ER with Chest pain S/p Cardiac Cath 02/23/[address] Elizabeth w/ mild to moderate CAD, patent stent mid LAD w/ recommendation for medical therapy. has status post CABG. 11/07: Seen by artillery specialist with diagnosis of Chest pain, probable secondary to Hypertensive Emergency on admission stable in her bedroom, chest pain free. discussed about non compliance issues. 11/08: Stable, controlled blood pressure now, discussed for a long time with her and her daughter due to medical non compliance to make her understand the importance of her lifestyle modification. Assessment and Plan (1) Chest pain ICD Code: R07.9 - Chest pain Status: Acute (2) Elevated troponin ICD Code: R74.8 - Elevated troponin level Status: Acute (3) HTN (hypertension) ICD Code: I10 - Essential (primary) hypertension Status: Acute 1. Chest Pain: Cardiology following, Troponin 0.06 cleared by Cardiology for discharge no ACS 2. Elevated Trop: Trop 0.06 now trending down., h/o CAD, r/o ACS w/ ischemia. , will resume home ASA, Plavix. Check serial cardiac enzymes for trend, B- Bryant, Statin. will need to be compliance with medicines, thought by cardiology related to Hypertensive Emergency. 3. Hypertensive Emergency Improved, controlled today, increased Imdur to 60 mg daily and continue Amlodipine 10 mg daily, not on diuretics blood pressure at this time 138/68 mm Hg. 4. Obesity strongly recommended diet and exercise as outpatient. 5. Medical Non compliance. DVT Prophylaxis: Lovenox. Social work for d/c planning as needed. discussed with patient, her Daughter and nurse Miss Gaxiola. Discharge Planning Discharge Home today. Pt Condition on Discharge: Good Discharge Disposition: Discharge Home Discharge Time: > 30 minutes Discharge Instructions DIET: Follow Instructions for: Heart Healthy Diet Activities you can perform: Regular-No Restrictions Vasile Ann MD Nov 08, 2017 11:17
[2017-11-08 12:28] VITALS: BP 143/70; PULSE 74; RESP 18; TEMP 97.3; O2SAT 95
== END 2017-11-08 13:05 | disposition home or self-care (01) ==
LOC: NEPC 01:10 → INTOOBSV 02:45 → NEDA 02:45 → N04B 04:30
PROVIDERS: ADMIT Internal Medicine; ATTEND Internal Medicine
DX: I16.1 Hypertensive emergency (principal); I25.10 Atherosclerotic heart disease of native coronary artery without angina pectoris; R07.89 Other chest pain; R06.02 Shortness of breath; I11.9 Hypertensive heart disease without heart failure; R74.8 Abnormal levels of other serum enzymes; E78.5 Hyperlipidemia, unspecified; Z91.14 Patient's other noncompliance with medication regimen; K21.9 Gastro-esophageal reflux disease without esophagitis; E66.9 Obesity, unspecified; Z95.5 Presence of coronary angioplasty implant and graft; R94.31 Abnormal electrocardiogram [ECG] [EKG]; Z85.3 Personal history of malignant neoplasm of breast
CPT/HCPCS: 71045; 80048; 80053; 82550; 82552; 83735; 84484; 85025; 85610; 85730; 93005; 96361; 96372; 96374; 99291; G0378; J1650; J2270; J7030

== ENCOUNTER 2017-11-20 15:12 | Inpatient (IN) | payer MEDICARE, MEDICAID ==
[2017-11-20] VITALS (8 sets, daily range): BP systolic 148–189; BP diastolic 67–92; PULSE 92–116; RESP 18–33; TEMP 98–98.8; O2SAT 93–100
[~2017-11-20] VITALS: Ht 157.5 cm; Wt 86.0 kg
[~2017-11-20 15:12] MED LIST changes: +AMLO10 PO; -POTA10TA8 PO; -hydrodiuril PO
[2017-11-20] MEDS ORDERED: SODIUM CHLORIDE 0.9% FLUSH 10 ML FLUSH IVF PRN (16:15)
[2017-11-20] MEDS ORDERED: SODIUM CHLORID 0.9% 500 ML INJ 500 ML IV ONE (16:15)
--- NOTE | 2017-11-20 16:19 | PD ---
HPI Chief Complaint: Cold / Flu Symptoms Time Seen by Provider: 16:02 Travel History International Travel<30 days: No Contact w/Intl Traveler<30days: No Traveled to known affect area: No History of Present Illness HPI [id number] woman who presents to the emergency department complaining of feeling sick for the past week or so. Family members been sick as well. Worsening fevers, productive cough, generalized weakness, not eating or drinking.Otherwise had been feeling well and healthy before this. Since his been constant persistent and worsening. History Past Medical History Narrative Medical Hypertension IA Breast cancer Hyperlipidemia Menopausal: Yes : 13 Para: 12 Dilation and Curettage (D&C): Yes Social History Alcohol Use: No Tobacco Use: No Allergies-Medications (Allergen,Severity, Reaction): Coded Allergies: lisinopril (Unverified Allergy, Mild, COUGH, 11/20/17) Reported Meds & Prescriptions Reported Meds & Active Scripts Active Norvasc (Amlodipine Besylate) 10 Mg Tab 10 Mg PO DAILY Metoprolol Tartrate 25 Mg Tab 25 Mg PO BID Losartan (Losartan Potassium) 100 Mg Tab 100 Mg PO DAILY Isosorbide Mononitrate 10 Mg Tab 30 Mg PO DAILY Take 2 doses 7 hours apart. Plavix (Clopidogrel Bisulfate) 75 Mg Tab 75 Mg PO DAILY Lipitor (Atorvastatin Calcium) 80 Mg Tab 80 Mg PO HS Tylenol-Codeine #3 (Acetaminophen-Codeine) 300-30 mg Tab 1-2 Tab PO Q6H PRN Reported Ranitidine (Ranitidine HCl) 150 Mg Cap 150 Mg PO DAILY Nitroglycerin SL (Nitroglycerin) 0.3 Mg Subl 0.3 Mg SL DIRECTED PRN ONE TABLET UNDER THE TONGUE NEEDED FOR CHEST PAIN, MAY REPEAT EVERY FIVE MINUTES FOR A TOTAL OF 3 DOSES OR CALL 911 IF NO RELIEF Aspirin 81 Mg Chew 81 Mg CHEW DAILY Review of Systems Except as stated in HPI: all other systems reviewed are Neg Physical Exam Narrative GENERAL: 82-year-old woman, sleepy but responsive, no acute distress. SKIN: Focused skin assessment warm/dry. HEAD: Atraumatic. Normocephalic. EYES: Pupils equal and round. No scleral icterus. No injection or drainage. ENT: No nasal bleeding or discharge. Mucous membranes pink and moist. NECK: Trachea midline. No JVD. CARDIOVASCULAR: Regular rate and rhythm. No murmur appreciated. RESPIRATORY: No respiratory distress. Coarse breath sounds posteriorly. GASTROINTESTINAL: Abdomen soft, non-tender, nondistended. Hepatic and splenic margins not palpable. MUSCULOSKELETAL: No obvious deformities. No clubbing. No cyanosis. No edema. NEUROLOGICAL: Decreased alertness t. No obvious cranial nerve deficits. Motor grossly within normal limits. Normal speech. PSYCHIATRIC: Appropriate mood and affect; insight and judgment normal. Data Data Last Documented VS Vital Signs Date Time Temp Pulse Resp B/P (MAP) Pulse Ox O2 Delivery O2 Flow Rate FiO2 11/20/17 15:37 116 33 162/70 (100) 95 Nasal Cannula 2.00 11/20/17 15:14 98.8 Orders Orders Complete Blood Count With Diff (11/20/17 16:10) Comprehensive Metabolic Panel (11/20/17 16:10) B-Type Natriuretic Peptide (11/20/17 16:10) Act Partial Throm Time (Ptt) (11/20/17 16:10) Prothrombin Time / Inr (Pt) (11/20/17 16:10) Troponin I (11/20/17 16:10) Influenzae A/B Antigen (11/20/17 16:10) Iv Access Insert/Monitor (11/20/17 16:10) Electrocardiogram (11/20/17 16:10) Ecg Monitoring (11/20/17 16:10) Oximetry (11/20/17 16:10) Oxygen Administration (11/20/17 16:10) Chest, Single Ap (11/20/17 16:10) Sodium Chloride 0.9% Flush (Ns Flush) (11/20/17 16:15) Sodium Chlorid 0.9% 500 Ml Inj (Ns 500 M (11/20/17 16:15) Lactic Acid Sepsis Protocol (11/20/17 16:15) Ceftriaxone Inj (Rocephin Inj) (11/20/17 17:45) Azithromycin Inj (Zithromax Inj) (11/20/17 17:45) Albuterol-Ipratropium Neb (Duoneb Neb) (11/20/17 18:00) Admit Order (Ed Use Only) (11/20/17 ) Labs Laboratory Tests Test 11/20/17 16:10 11/20/17 16:38 White Blood Count 9.7 TH/MM3 Red Blood Count 4.32 MIL/MM3 Hemoglobin 13.0 GM/DL Hematocrit 38.5 % Mean Corpuscular Volume 89.0 FL Mean Corpuscular Hemoglobin 30.2 PG Mean Corpuscular Hemoglobin Concent 33.9 % Red Cell Distribution Width 14.0 % Platelet Count 203 TH/MM3 Mean Platelet Volume 8.7 FL Neutrophils (%) (Auto) 79.2 % Lymphocytes (%) (Auto) 10.5 % Monocytes (%) (Auto) 8.8 % Eosinophils (%) (Auto) 1.0 % Basophils (%) (Auto) 0.5 % Neutrophils # (Auto) 7.6 TH/MM3 Lymphocytes # (Auto) 1.0 TH/MM3 Monocytes # (Auto) 0.8 TH/MM3 Eosinophils # (Auto) 0.1 TH/MM3 Basophils # (Auto) 0.1 TH/MM3 CBC Comment DIFF FINAL Differential Comment Prothrombin Time 11.1 SEC Prothromb Time International Ratio 1.1 RATIO Activated Partial Thromboplast Time 28.8 SEC Blood Urea Nitrogen 13 MG/DL Creatinine 0.90 MG/DL Random Glucose 115 MG/DL Total Protein 8.0 GM/DL Albumin 3.7 GM/DL Calcium Level 8.2 MG/DL Alkaline Phosphatase 60 U/L Aspartate Amino Transf (AST/SGOT) 42 U/L Alanine Aminotransferase (ALT/SGPT) 23 U/L Total Bilirubin 1.1 MG/DL Sodium Level 134 MEQ/L Potassium Level 3.4 MEQ/L Chloride Level 99 MEQ/L Carbon Dioxide Level 27.4 MEQ/L Anion Gap 8 MEQ/L Estimat Glomerular Filtration Rate 60 ML/MIN Troponin I 0.09 NG/ML B-Type Natriuretic Peptide 149 PG/ML Lactic Acid Level 0.9 mmol/L [facility] Medical Decision Making Medical Screen Exam Complete: Yes Emergency Medical Condition: Yes Medical Record Reviewed: Yes Interpretation(s) My review of EKG: Sinus tachycardia at a rate of 100, occasional f premature complexes, normal axis, lateral T-wave inversions, inferior Q waves, anterior precordial Q waves, no definite evidence of acute ischemia. Compared to previous EKG from November 06 of this year, lateral precordial T-wave inversions are less pronounced on this EKG. LABS: CBC is unremarkable. CMP is overall unremarkable. Troponin 0 0.09 consistent with previous BNP is 149 Lactate 0.9 Coags unremarkable. Chest x-ray: Interval development of subsegmental infiltrates in the lower lateral left lung and right infrahilar region. Differential Diagnosis Influenza, pneumonia, bronchitis, other Narrative Course Medical decision making INITIAL claims an 82-year-old woman presents to the emergency department complaining of weakness, cough cold symptoms, fever. She looks a little bit sluggish and lethargic. She is able to awaken up and answer questions. No significant respiratory distress. Will check labs, flu, chest x-ray, reassess. FINAL: 82-year-old woman, pneumonia, weak and lethargic, recommend admission. Physician Communication Physician Communication Spoke with family medicine admitting team. Diagnosis Primary Impression: Pneumonia Admitting Information Admitting Physician Requests: Admit Jabier Rosenberg MD Nov 20, 2017 16:19
[2017-11-20 16:31] LABS: AUTOMATED NEUTROPHIL # 7.6 TH/MM3 (1.8-7.7); BASOPHIL # 0.1 TH/MM3 (0-0.2); BASOPHIL % 0.5 % (0.0-2.0); EOSINOPHIL # 0.1 TH/MM3 (0-0.4); HEMATOCRIT 38.5 % (35.0-46.0); LYMPH % 10.5 % (9.0-44.0); MEAN CORPUSCULAR HEMOGLOBIN 30.2 PG (27.0-34.0); MEAN CORPUSCULAR HGB CONC 33.9 % (32.0-36.0); MEAN PLATELET VOLUME 8.7 FL (7.0-11.0); MONO % 8.8 % (0.0-8.0); MONOCYTE # 0.8 TH/MM3 (0-0.9); NEUT % 79.2 % (16.0-70.0); PLATELET COUNT 203 TH/MM3 (150-450); RED BLOOD COUNT 4.32 MIL/MM3 (4.00-5.30); WHITE BLOOD COUNT 9.7 TH/MM3 (4.0-11.0)
[2017-11-20 16:47] LABS: INTERNATIONAL NORMALIZED RATIO 1.1 RATIO; PROTHROMBIN TIME - PATIENT 11.1 SEC (9.8-11.6)
[2017-11-20 16:53] LABS: ALBUMIN 3.7 GM/DL (3.4-5.0); ALT (GPT) 23 U/L (10-53); AST (GOT) 42 U/L (15-37); BICARBONATE 27.4 MEQ/L (21.0-32.0); BLOOD UREA NITROGEN 13 MG/DL (7-18); CALCIUM 8.2 MG/DL (8.5-10.1); CHLORIDE 99 MEQ/L (98-107); GLOMERULAR FILTRATION RATE 60 ML/MIN (>89); GLUCOSE,RANDOM 115 MG/DL (74-106); SODIUM (NA) 134 MEQ/L (136-145)
--- NOTE | 2017-11-20 16:53 | RADRPT ---
EXAM DATE/TIME: 11/20/2017 16:29 [place] COMPARISON: CHEST SINGLE AP, February 20, 2017, 23:12. CHEST SINGLE AP, July 24, 2017, 20:57. CHEST SINGLE AP, [facility] 2017, 1:32. INDICATIONS : Shortness of breath and cough. MEDICAL HISTORY : Hypertension. Chronic obstructive pulmonary disease. Myocardial infarction. Breast cancer. SURGICAL HISTORY : Mastectomy, left. ENCOUNTER: Initial ACUITY: 1 week PAIN SCORE: 0/10 LOCATION: Bilateral chest FINDINGS: Frontal views chest demonstrates interval development of partially consolidative ill-defined infiltra te in the lower lateral left lung post loss of delineation of a portion of the lateral left hemidiaph ragm. There is also fullness in the infrahilar region on the right side suggesting subsegmental infi ltrate. The heart is normal in size. The right hemidiaphragm is well delineated. The upper lungs a re clear. Orthopedic anchors in the proximal left humerus. CONCLUSION: Interval development of subsegmental infiltrates lower lateral left lung and right infrahilar region. Juan Diego Levine MD on November 20, 2017 at 16:49 Board Certified Radiologist. This report was verified electronically.
[2017-11-20 16:57] LABS: ALKALINE PHOSPHATASE 60 U/L (45-117); TOTAL BILIRUBIN ADULT 1.1 MG/DL (0.2-1.0); TROPONIN I 0.09 NG/ML (0.02-0.05)
[2017-11-20] MEDS ORDERED: cefTRIAXone INJ 1,000 MG in SODIUM CHLORIDE 0.9% INJ 100 ML IV ONE (17:45)
[2017-11-20] MEDS ORDERED: AZITHROMYCIN INJ 500 MG in SODIUM CHLOR 0.9% 250 ML INJ 250 ML IV ONE (17:45)
[2017-11-20] MEDS ORDERED: RESP: ALBUTEROL 2.5 MG/IPRATROPIUM 0.5 MG NEB (SCH) NEB ONE (18:00)
--- NOTE | 2017-11-20 18:44 | HHI.HP ---
HPI Service Family Medicine Primary Care Physician No Primary Care Physician Admission Diagnosis Pneumonia Diagnoses: International Travel<30 Days: No Contact w/Intl Traveler<30days: No Known Affected Area: No History of Present Illness 82 yr old F w/ hypertension, hyperlipidemia, CAD s/p stent in LAD who presents with "feeling sick." Accompanied by daughter and granddaughter. Patient recently hospitalized on 11/06 for chest pain due to hypertensive emergency and medication noncompliance, discharged on 11/08. Daughter states that "she has been sick all week with a bug." Her 8 yr old grandson that lives with her has been experiencing flu-like symptoms, but has been improving with antibiotics. Daughter went to check on patient today and found her on a chair unable to move due to fatigue. She reports that her mom lives in a trailer, which was extremely hot upon arrival due to air conditioner being off. States that patient was also coughing up white-clearish mucus and had 1 episode of vomiting , productive of "greenish-bile fluid". Daughter became concerned and brought mom to ED. Patient is normally independent at baseline. Able to walk around on her own, rarely uses her walker, and able to dress and feed herself. Last meal was last night. No changes in appetite per patient. Patient endorses sore throat and congestion. Denies fevers, runny nose, diarrhea, CP, SOB, abdominal pain, and N/V. (Kiera Elizondo MD R1) Review of Systems Constitutional: DENIES: Fever, Weight loss, Night Sweats Eyes: DENIES: Vision loss Ears, nose, mouth, throat: COMPLAINS OF: Throat pain, DENIES: Running Nose Respiratory: COMPLAINS OF: Cough, Shortness of breath Cardiovascular: DENIES: Chest pain Gastrointestinal: COMPLAINS OF: Vomiting, DENIES: Abdominal pain, Diarrhea, Nausea Genitourinary: DENIES: Dysuria Musculoskeletal: DENIES: Muscle aches Integumentary: DENIES: Rash Neurologic: DENIES: Headache (Kiera Elizondo MD R1) Past Family Social History Past Medical History HTN Hx of Breast CA Hyperlipidemia CAD s/p LAD stent 02/27/17 Past Surgical History Cardiac cath 02/23/17 Bilateral Cataract Surgery Total Hysterectomy Left Mastectomy Left knee replacement (Kiera Elizondo MD R1) Allergies: Coded Allergies: lisinopril (Unverified Allergy, Mild, COUGH, 11/20/17) Family History No h/o DM or CAD Social History Lives alone with 8yr old grandson Never smoker, admits to Snuff use Denies alcohol and illicit drug use (Kiera Elizondo MD R1) Physical Exam Vital Signs Vital Signs Date Time Temp Pulse Resp B/P (MAP) Pulse Ox O2 Delivery O2 Flow Rate FiO2 11/20/17 18:25 108 26 158/67 (97) 95 Nasal Cannula 2.00 11/20/17 17:57 97 Nasal Cannula 2.00 11/20/17 15:37 116 33 162/70 (100) 95 Nasal Cannula 2.00 11/20/17 15:14 98.8 110 18 189/92 (124) 93 Physical Exam GENERAL: elderly female, lying in bed, currently on 2L NC, in NAD SKIN: No rashes, ecchymoses or lesions. Cool and dry. HEAD: Atraumatic. Normocephalic. No temporal or scalp tenderness. EYES: Pupils equal round and reactive. Extraocular motions intact. No scleral icterus. No injection or drainage. ENT: Nose without bleeding, purulent drainage or septal hematoma. Throat without erythema, tonsillar hypertrophy or exudate. Uvula midline. Airway patent. NECK: Trachea midline. No JVD or lymphadenopathy. Supple, nontender, no meningeal signs. CARDIOVASCULAR: Irregular rate and rhythm, no m/r/g RESPIRATORY: Coarse breath sounds throughout GASTROINTESTINAL: Abdomen soft, non-tender, nondistended. No hepato-splenomegaly , or palpable masses. No guarding. MUSCULOSKELETAL: Extremities without clubbing, cyanosis, or edema. No joint tenderness, effusion, or edema noted. No calf tenderness. NEUROLOGICAL: Awake, alert, and oriented x3. No neuro deficits. Laboratory Laboratory Tests Test 11/20/17 16:10 11/20/17 16:38 White Blood Count 9.7 Red Blood Count 4.32 Hemoglobin 13.0 Hematocrit 38.5 Mean Corpuscular Volume 89.0 Mean Corpuscular Hemoglobin 30.2 Mean Corpuscular Hemoglobin Concent 33.9 Red Cell Distribution Width 14.0 Platelet Count 203 Mean Platelet Volume 8.7 Neutrophils (%) (Auto) 79.2 Lymphocytes (%) (Auto) 10.5 Monocytes (%) (Auto) 8.8 Eosinophils (%) (Auto) 1.0 Basophils (%) (Auto) 0.5 Neutrophils # (Auto) 7.6 Lymphocytes # (Auto) 1.0 Monocytes # (Auto) 0.8 Eosinophils # (Auto) 0.1 Basophils # (Auto) 0.1 CBC Comment DIFF FINAL Differential Comment Prothrombin Time 11.1 Prothromb Time International Ratio 1.1 Activated Partial Thromboplast Time 28.8 Blood Urea Nitrogen 13 Creatinine 0.90 Random Glucose 115 Total Protein 8.0 Albumin 3.7 Calcium Level 8.2 Alkaline Phosphatase 60 Aspartate Amino Transf (AST/SGOT) 42 Alanine Aminotransferase (ALT/SGPT) 23 Total Bilirubin 1.1 Sodium Level 134 Potassium Level 3.4 Chloride Level 99 Carbon Dioxide Level 27.4 Anion Gap 8 Estimat Glomerular Filtration Rate 60 Troponin I 0.09 B-Type Natriuretic Peptide 149 Lactic Acid Level 0.9 Date/Time Source Procedure Growth Status 11/20/17 16:36 Nasal Washing Influenza Types A,B Antigen (JACOBO) - Final NEGATIVE FOR FLU A AND B ANTIGEN.... Complete (Kiera Elizondo MD R1) Result Diagram: 11/20/17 1610 11/20/17 1610 Caprini VTE Risk Assessment Caprini VTE Risk Assessment: Mod/High Risk (score >= 2) Caprini Risk Assessment Model Point Value = 1 Point Value = 2 Point Value = 3 Point Value = 5 Age 41-60 Minor surgery BMI > 25 kg/m2 Swollen legs Varicose veins or History of unexplained or recurrent spontaneous Oral contraceptives or hormone replacement Sepsis (< 1 month) Serious lung disease, including pneumonia (< 1 month) Abnormal pulmonary function Acute myocardial infarction Congestive heart failure (< 1 month) History of inflammatory bowel disease Medical patient at bed rest Age 61-74 Arthroscopic surgery Major open surgery (> 45 min) Laparoscopic surgery (> 45 min) Malignancy Confined to bed (> 72 hours) Immobilizing plaster cast Central venous access Age >= 75 History of VTE Family history of VTE Factor V Leiden Prothrombin 43177B Lupus anticoagulant Anticardiolipin antibodies Elevated serum homocysteine Heparin-induced thrombocytopenia Other congenital or acquired thrombophilia Stroke (< 1 month) Elective arthroplasty Hip, pelvis, or leg fracture Acute spinal cord injury (< 1 month) Prophylaxis Regimen Total Risk Factor Score Risk Level Prophylaxis Regimen 0-1 Low Early ambulation 2 Moderate Order ONE of the following: *Sequential Compression Device (SCD) *Heparin 5000 units SQ BID 3-4 Higher Order ONE of the following medications: *Heparin 5000 units SQ TID *Enoxaparin/Lovenox 40 mg SQ daily (WT < 150 kg, CrCl > 30 mL/min) *Enoxaparin/Lovenox 30 mg SQ daily (WT < 150 kg, CrCl > 10-29 mL/min) *Enoxaparin/Lovenox 30 mg SQ BID (WT < 150 kg, CrCl > 30 mL/min) AND/OR *Sequential Compression Device (SCD) 5 or more Highest Order ONE of the following medications: *Heparin 5000 units SQ TID (Preferred with Epidurals) *Enoxaparin/Lovenox 40 mg SQ daily (WT < 150 kg, CrCl > 30 mL/min) *Enoxaparin/Lovenox 30 mg SQ daily (WT < 150 kg, CrCl > 10-29 mL/min) *Enoxaparin/Lovenox 30 mg SQ BID (WT < 150 kg, CrCl > 30 mL/min) AND *Sequential Compression Device (SCD) (Kiera Elizondo MD R1) Assessment and Plan Assessment and Plan 82 yr old F w/ hypertension, hyperlipidemia, CAD s/p stent in LAD admitted for HCAP Code Status Full Code Discussed Condition With Dr. Clark (Kiera Elizondo MD R1) Attending Attestation THIS CASE WAS DISCUSSED WITH THE RESIDENT PHYSICIAN. I HAVE REVIEWED THE RECORD AND AGREE WITH THE ABOVE NOTE AND PLAN OF CARE WAS DISCUSSED. I HAVE AUTHORIZED THE ORDER FOR PLACEMENT IN OUT-PATIENT OBSERVATION STATUS. (Joaquín Moore MD) Problem List: (1) Healthcare-associated pneumonia ICD Codes: J18.9 - Pneumonia, unspecified organism Status: Acute Plan: 1 week hx of coughing and flu-like symptoms with known sick contact. Recently hospitalized on 11/08. Afebrile No leukocytosis on CBC Lactic acid 0.9 Influenza negative CXR demonstrates development of subsegmental infiltrates lower lateral left lung and right infrahilar region Blood culture x2 pending, drawn after receiving abx in ED Legionella and Pneumoccal urinary antigen pending IV antibiotics s/p Rocephin and Azithromycin in ED-discontinued due to patient's recent hospitalization Start Vancomycin 1300mg IV q24h, pharmacy consulted for dosing Start Zosyn 4.5 gm IV q6h Solumedrol 40mg IV q12h Duonebs ANH q4h, albuterol neb PRN Tessalon pearls, mucinex, and magic mouth wash for cough/sore throat Tylenol 650mg PO q4h for fever (2) CAD (coronary artery disease) ICD Codes: I25.10 - Atherosclerotic heart disease of [place] coronary artery without angina pectoris Status: Chronic Plan: EKG: Sinus tachycardia at a rate of 100, occasional f premature complexes , normal axis, lateral T-wave inversions, inferior Q waves, anterior precordial Q waves, no definite evidence of acute ischemia. Compared to previous EKG from November 06 of this year, lateral precordial T-wave inversions are less pronounced on this EKG. Troponin at 0.09, baseline troponin ~0.06 per chart review Trend troponin and EKG q6h Monitor on cardiac telemetry Continue Plavix 75 mg PO daily and Aspirin chew 81mg daily Continue Imdur 30mg PO daily (3) HTN (hypertension) ICD Codes: I10 - Essential (primary) hypertension Status: Chronic Plan: Continue Amlodipine 10mg PO daily, Losartan 100mg PO daily, metoprolol tartrate 25mg PO bid (4) Hyperlipemia ICD Codes: E78.5 - Hyperlipidemia, unspecified Status: Chronic Plan: Continue atorvastatin 80mg PO hs (5) Hypokalemia ICD Codes: E87.6 - Hypokalemia Status: Acute Plan: K+ 3.4 Replace orally (6) Nutrition, metabolism, and development symptoms ICD Codes: R63.8 - Other symptoms and signs concerning food and fluid intake Plan: Diet: NPO except meds, awaiting 2nd set of troponin, pt passed bedside swallow eval Fluids: NS 100mlshr vitals q4hr, monitor I &Os DVT ppx: heparin 5000 units q8hr (Kiera Elizondo MD R1) Kiera Elizondo MD R1 Nov 20, 2017 18:44 Joaquín Moore MD Nov 21, 2017 11:58
[2017-11-20] MEDS ORDERED: SODIUM CHLORIDE 0.9% FLUSH 10 ML FLUSH IV FLUSH PRN (18:45)
[2017-11-20] MEDS ORDERED: NITROGLYCERIN 0.3 MG SL 100 TABS/BTL SL PRN (19:15)
[2017-11-20] MEDS ORDERED: ACETAMINOPHEN 325 MG TAB PO PRN (19:30)
[2017-11-20] MEDS ORDERED: Vancomycin Consult Pharmacy 1 EA OTHER SCH (19:30)
[2017-11-20] MEDS ORDERED: NALOXONE HCL 0.4 MG/ML AMP IV PUSH PRN (19:30)
[2017-11-20] MEDS: RESP: ALBUTEROL 2.5 MG/IPRATROPIUM 0.5 MG NEB (SCH) NEB ×2 (19:53→23:10)
[2017-11-20] MEDS ORDERED: VANCOMYCIN INJ 1,000 MG in SODIUM CHLOR 0.9% 250 ML INJ 250 ML IV ONE (20:00)
[2017-11-20] MEDS: PIPERACIL-TAZO 4.5 GM PREMIX 100 ML IV SCH (21:00)
[2017-11-20] MEDS ORDERED: NYSTAT/DIPHENHY/LIDO MOUTHWASH (Adult) 120ML SWISH-SWAL PRN (21:00)
[2017-11-20] MEDS ORDERED: SODIUM CHLOR 0.9% 1000 ML INJ 1,000 ML IV SCH (21:22)
[2017-11-20] MEDS: methylPREDNISolone SOD SUCC 40 MG/1 ML VIAL IV PUSH SCH (21:22)
[2017-11-20] MEDS: HEPARIN SODIUM - SQ 10,000 UNITS/ML VIAL SQ SCH (21:22)
[2017-11-20] MEDS: SODIUM CHLORIDE 0.9% FLUSH 10 ML FLUSH IV FLUSH SCH (21:24)
[2017-11-20] MEDS: ATORVASTATIN 80 MG TAB PO SCH (21:24)
[2017-11-20] MEDS ORDERED: POTASSIUM CHLORIDE 10 MEQ CONTROLLED RELEASE TAB PO ONE (21:30)
[2017-11-20] MEDS: ISOSORBIDE MONONITRATE 30 MG TAB PO SCH (21:31)
[2017-11-20] MEDS: ASPIRIN 81 MG CHEW TAB CHEW SCH (21:32)
[2017-11-20] MEDS: guaiFENesin E.R. 600 MG TAB PO PRN (21:32)
[2017-11-20] MEDS: BENZONATATE 100 MG CAP PO PRN (21:32)
[2017-11-20] MEDS: LOSARTAN 50 MG TAB PO SCH (21:33)
[2017-11-20] MEDS: CLOPIDOGREL 75 MG TAB PO SCH (21:33)
[2017-11-21] VITALS (13 sets, daily range): BP systolic 119–147; BP diastolic 56–67; PULSE 65–85; RESP 17–18; TEMP 97.3–98.4; O2SAT 95–97
--- NOTE | 2017-11-21 00:39 | EKG ---
Date Performed: 11/20/2017 Time Performed: 19:27:42 PTAGE: 82 years EKG: Sinus rhythm WITH OCCASIONAL SUPRAVENTRICULAR PREMATURE COMPLEXES ANTERIOR MYOCARDIAL INFARCTION PROBABLE INFERIO R MYOCARDIAL INFARCTION MODERATE T-WAVE ABNORMALITY, CONSIDER LATERAL ISCHEMIA ABNORMAL ECG PREVIOUS TRACING : 11/20/2017 16.30 Since the prior tracing, there has been no significant guerrier [employer] DOCTOR: Fermin Ascencio Interpretating Date/Time 11/21/2017 00:37:34
--- NOTE | 2017-11-21 00:42 | EKG ---
Date Performed: 11/20/2017 Time Performed: 16:30:01 PTAGE: 82 years EKG: SINUS TACHYCARDIA WITH OCCASIONAL SUPRAVENTRICULAR PREMATURE COMPLEXES ANTERIOR MYOCARDIAL INFARCTION PROBABLE INFERIOR MYOCARDIAL INFARCTION MODERATE T-WAVE ABNORMALITY, CONSIDER LATERAL ISCH EMIA ABNORMAL ECG PREVIOUS TRACING : 11/06/2017 01.24 Compared to prior tracing, rate has increased DOCTOR: Fermin Ascencio Interpretating Date/Time 11/21/2017 00:41:28
[2017-11-21] MEDS: METOPROLOL TARTRATE 25 MG TAB PO SCH ×3 (01:27→21:33)
[2017-11-21] MEDS: PIPERACIL-TAZO 4.5 GM PREMIX 100 ML IV SCH ×4 (03:30→21:33)
[2017-11-21] MEDS: RESP: ALBUTEROL 2.5 MG/IPRATROPIUM 0.5 MG NEB (SCH) NEB ×3 (03:47→11:44)
[2017-11-21] MEDS: HEPARIN SODIUM - SQ 10,000 UNITS/ML VIAL SQ SCH ×3 (04:48→20:26)
[2017-11-21 07:05] LABS: AUTOMATED NEUTROPHIL # 10.8 TH/MM3 (1.8-7.7); BASOPHIL % 0.1 % (0.0-2.0); HEMATOCRIT 37.2 % (35.0-46.0); HEMOGLOBIN 12.5 GM/DL (11.6-15.3); LYMPH % 6.3 % (9.0-44.0); LYMPHOCYTE # 0.7 TH/MM3 (1.0-4.8); MEAN CELL VOLUME 90.8 FL (80.0-100.0); MEAN CORPUSCULAR HEMOGLOBIN 30.6 PG (27.0-34.0); MEAN CORPUSCULAR HGB CONC 33.7 % (32.0-36.0); MEAN PLATELET VOLUME 8.5 FL (7.0-11.0); MONO % 2.8 % (0.0-8.0); MONOCYTE # 0.3 TH/MM3 (0-0.9); NEUT % 90.8 % (16.0-70.0); PLATELET COUNT 182 TH/MM3 (150-450); RED BLOOD COUNT 4.09 MIL/MM3 (4.00-5.30); WHITE BLOOD COUNT 11.9 TH/MM3 (4.0-11.0)
[2017-11-21 07:12] LABS: CALCIUM 7.6 MG/DL (8.5-10.1); CREATININE 0.79 MG/DL (0.50-1.00)
[2017-11-21] MEDS: methylPREDNISolone SOD SUCC 40 MG/1 ML VIAL IV PUSH SCH ×2 (08:00→20:25)
[2017-11-21] MEDS ORDERED: RESP: ALBUTEROL 2.5 MG/IPRATROPIUM 0.5 MG NEB (PRN) NEB (08:30)
[2017-11-21] MEDS: CLOPIDOGREL 75 MG TAB PO SCH (09:00)
[2017-11-21] MEDS: ASPIRIN 81 MG CHEW TAB CHEW SCH (09:00)
[2017-11-21] MEDS: LOSARTAN 50 MG TAB PO SCH (09:00)
[2017-11-21] MEDS: SODIUM CHLORIDE 0.9% FLUSH 10 ML FLUSH IV FLUSH SCH ×2 (09:00→20:26)
[2017-11-21] MEDS: ISOSORBIDE MONONITRATE 30 MG TAB PO SCH (09:00)
[2017-11-21] MEDS: guaiFENesin E.R. 600 MG TAB PO PRN (09:36)
[2017-11-21] MEDS: BENZONATATE 100 MG CAP PO PRN (09:36)
--- NOTE | 2017-11-21 11:40 | MB ---
cc: JYOTI MOYA M.D., OTAKAR MD DATE OF CONSULTATION: 11/21/2017. REASON FOR CONSULTATION: Abnormal EKG. Nonspecific troponin elevation. HISTORY OF PRESENT ILLNESS: Ms. Flores is a pleasant 82-year-old lady with history of hyperlipidemia, coronary artery disease status post stenting of the left anterior descending artery in May of 2016. She presented again in February 2017 with nonspecific chest discomfort and nonspecific troponin elevation. She had a cardiac catheterization by Dr. Elizabeth that revealed stent to be widely patent. There was some mild diffuse disease with moderate ostial diagonal branch disease treated with medical therapy. She has done well. She comes now after she has had the flu and her grandson who she takes care of also had flu-like symptoms. She was having progressive fatigue and dyspnea on exertion, more than her usual baseline (has COPD) with cough, whitish sputum, questionable fever at home. Denies chest pain at the present time. Denies palpitations, dizziness or syncope. Denies orthopnea or paroxysmal nocturnal dyspnea. Has occasional ankle swellings which has been going on and off for many years. Denies claudications. ALLERGIES: QUESTIONABLE ALLERGY TO LISINOPRIL; HOWEVER, SHE HAS SIDE EFFECTS OF COUGH, SO I AM NOT SURE IF THIS IS A TRUE ALLERGY. FAMILY HISTORY: No prior family history of diabetes or coronary artery disease. PAST MEDICAL HISTORY / PAST SURGICAL HISTORY: Includes that mentioned above. 1. History of hypertension. 2. History of breast cancer status post left mastectomy. 3. Bilateral cataract surgery in the past. 4. Left knee replacement. 5. Total hysterectomy. MEDICATIONS AT HOME: Her medications at home include the followin. Aspirin 81 milligrams daily. 2. Plavix 75 milligrams p.o. daily. 3. Atorvastatin 80 milligrams p.o. at bedtime. 4. Imdur 30 milligrams p.o. daily. 5. Nitroglycerin sublingual PRN with chest pain. 6. Metoprolol tartrate 25 milligrams p.o. twice a day. 7. Amlodipine 10 milligrams p.o. daily. 8. Losartan 100 milligrams p.o. daily. 9. Ranitidine 150 milligrams daily. 10. Acetaminophen / codeine 300/30 milligrams one to two tablets q. 6 hours PRN with pain. SOCIAL HISTORY: Lives alone and takes care of an 80-year-old grandson. No history of smoking. Denies EtOH abuse or recreational drug abuse. REVIEW OF SYSTEMS: A twelve-point system review was unremarkable except for what is mentioned in the history of present illness. PHYSICAL EXAMINATION: GENERAL: On physical exam, an 82-year-old lady lying in bed in no apparent distress. Alert and oriented times three. Answers questions appropriately. VITAL SIGNS: Blood pressure is 147/67 mmHg, pulse of 85 beats per minute and regular, respirations 16 per minute, afebrile. HEAD, EYES, EARS, NOSE, THROAT: Head is normocephalic. Pupils are equal and reactive. Throat is within normal limits. NECK: The neck is supple. No carotid bruits. No thyromegaly. LUNGS: A few crepitations at the bases bilaterally, more at the right lower third. Somewhat diminished air entry and a very few expiratory rhonchi noted. CARDIOVASCULAR: S1 and S2 are normal with a faint S4 gallop. A soft 1/6 systolic murmur across the precordium. ABDOMEN: Obese, lax and nontender. Normoactive bowel sounds. No organomegaly. No masses felt. EXTREMITIES: Lower extremities with trace pedal/ankle edema. PULSES: 2+ bilaterally. Dorsalis pedis pulse is barely felt. RECTAL: Exam deferred. NEUROLOGIC: Grossly intact with no focal deficits. EKGS: EKG shows sinus rhythm with APCs, poor R-wave progression. Nonspecific lateral S-T-T wave changes, most of it was present before. There are Q-waves noted in the inferior wall as well. This has not significantly changed compared to prior tracing, and that is compared to the tracing from June 06, 2016. LABORATORY DATA: Elevated white count today to 11.9, hemoglobin 12.5, platelets of 182,000. Chemistries show a sodium of 138, potassium 3.7, BUN of 16, creatinine 0.79 with calcium of 7.6. Troponin I shows nonspecific elevations at 0.09, 0.11 and 0.09 relatively flat. BNP shows nonspecific elevation at 149. IMAGING STUDIES: Her chest x-ray shows left lower lobe infiltrate and right infrahilar infiltrate as well. ASSESSMENT AND RECOMMENDATIONS: 1. Coronary artery disease status post percutaneous coronary intervention in the past in 2015 and February of 2017 followed by a cath with no intervention revealing widely patent stent in the left anterior descending. At the present time, she denies any chest pain. There is nonspecific troponin elevation with no significant dynamic S-T changes compared to her previous EKG. At this point, I would just continue her cardiac home medications. Further ischemia evaluation is felt needed. I will leave this up to Dr. Elizabeth who will resume her cardiac care from tomorrow. 2. Hypertension: Continue home medications. 3. Hyperlipidemia: Continue atorvastatin. 4. Shortness of breath. Likely a combination of COPD exacerbation plus underlying pneumonia for which she is being aggressively treated and will leave this up to the medical team. I thank you for the consultation. MD SONAM Morales/JOSEPH /10:24 AM /11:21 AM
--- NOTE | 2017-11-21 11:57 | HHI.HP ---
HPI Service Family Medicine Primary Care Physician No Primary Care Physician Admission Diagnosis Pneumonia Diagnoses: (1) Healthcare-associated pneumonia (2) CAD (coronary artery disease) (3) HTN (hypertension) (4) Hyperlipemia (5) Hypokalemia (6) Nutrition, metabolism, and development symptoms International Travel<30 Days: No Contact w/Intl Traveler<30days: No Known Affected Area: No History of Present Illness Patient examined with resident medical team during morning rounds. She continues to complain of a significant cough with generalized fatigue and malaise. She states that her cough is nonproductive but it keeps her up at night and has not improved since being hospitalized. She also complains of continued overall delays and fatigue. She denies overt fevers but has felt chilled overnight. She feels that the breathing treatments are helping, however does not think she has received any cough medication. She denies any overt chest pain or palpitations, denies any vomiting but does endorse some nausea, she denies any productive sputum. In summary, this is an 82 yr old F w/ hypertension, hyperlipidemia, CAD s/p stent in LAD who presents with "feeling sick." Accompanied by daughter and granddaughter. Patient recently hospitalized on 11/06 for chest pain due to hypertensive emergency and medication noncompliance, discharged on 11/08. Daughter states that "she has been sick all week with a bug." Her 8 yr old grandson that lives with her has been experiencing flu-like symptoms, but has been improving with antibiotics. Daughter went to check on patient today and found her on a chair unable to move due to fatigue. She reports that her mom lives in a trailer, which was extremely hot upon arrival due to air conditioner being off. States that patient was also coughing up white-clearish mucus and had 1 episode of vomiting, productive of "greenish-bile fluid". Daughter became concerned and brought mom to ED. Patient is normally independent at baseline. Able to walk around on her own, rarely uses her walker, and able to dress and feed herself. Last meal was last night. No changes in appetite per patient. Patient endorses sore throat and congestion. Denies fevers, runny nose , diarrhea, CP, SOB, abdominal pain, and N/V. Review of Systems Constitutional: COMPLAINS OF: Fatigue, Chills, Dizziness, DENIES: Fever Respiratory: COMPLAINS OF: Cough, Wheezing, Shortness of breath, DENIES: Apneas , Hemoptysis, Sputum production Cardiovascular: COMPLAINS OF: Dyspnea on Exertion, DENIES: Chest pain, Palpitations, Lower Extremity Edema Gastrointestinal: COMPLAINS OF: Nausea, DENIES: Abdominal pain, Constipation, Diarrhea, Vomiting Musculoskeletal: DENIES: Joint pain Past Family Social History Past Medical History HTN Hx of Breast CA Hyperlipidemia CAD s/p LAD stent 02/27/17 Past Surgical History Cardiac cath 02/23/17 Bilateral Cataract Surgery Total Hysterectomy Left Mastectomy Left knee replacement Allergies: Coded Allergies: lisinopril (Unverified Allergy, Mild, COUGH, 11/20/17) Family History No h/o DM or CAD Social History Lives alone with 8yr old grandson Never smoker, admits to Snuff use Denies alcohol and illicit drug use Physical Exam Vital Signs Vital Signs Date Time Temp Pulse Resp B/P (MAP) Pulse Ox O2 Delivery O2 Flow Rate FiO2 11/21/17 11:37 97.8 65 18 120/60 (80) 97 11/21/17 08:33 97.3 85 18 147/67 (93) 97 11/21/17 07:47 95 Nasal Cannula 3.00 11/21/17 06:39 75 11/21/17 04:32 98.4 80 17 123/57 (79) 96 11/20/17 23:52 92 18 163/72 (102) 95 11/20/17 20:54 98.0 96 19 148/67 (94) 96 11/20/17 19:56 95 Nasal Cannula 2.00 11/20/17 19:28 96 18 100 Nasal Cannula 2.00 11/20/17 18:25 108 26 158/67 (97) 95 Nasal Cannula 2.00 11/20/17 17:57 97 Nasal Cannula 2.00 11/20/17 15:37 116 33 162/70 (100) 95 Nasal Cannula 2.00 11/20/17 15:14 98.8 110 18 189/92 (124) 93 Physical Exam GENERAL: Elderly, obese female lying in bed with nasal cannula in place SKIN: No obvious skin breakdown, ecchymosis, or poor turgor HEAD: Atraumatic. Normocephalic. CARDIOVASCULAR: Regular rate and rhythm without murmurs RESPIRATORY: Coarse breath sounds diffusely with expiratory wheezes GASTROINTESTINAL: Abdomen soft, non-tender, nondistended. MUSCULOSKELETAL: Extremities without clubbing, cyanosis, or edema. NEUROLOGICAL: Awake, alert, and oriented x3. No obvious neuro deficits. Laboratory Laboratory Tests Test 11/20/17 16:10 11/20/17 16:38 11/20/17 22:51 11/21/17 05:45 White Blood Count 9.7 11.9 Red Blood Count 4.32 4.09 Hemoglobin 13.0 12.5 Hematocrit 38.5 37.2 Mean Corpuscular Volume 89.0 90.8 Mean Corpuscular Hemoglobin 30.2 30.6 Mean Corpuscular Hemoglobin Concent 33.9 33.7 Red Cell Distribution Width 14.0 14.0 Platelet Count 203 182 Mean Platelet Volume 8.7 8.5 Neutrophils (%) (Auto) 79.2 90.8 Lymphocytes (%) (Auto) 10.5 6.3 Monocytes (%) (Auto) 8.8 2.8 Eosinophils (%) (Auto) 1.0 0.0 Basophils (%) (Auto) 0.5 0.1 Neutrophils # (Auto) 7.6 10.8 Lymphocytes # (Auto) 1.0 0.7 Monocytes # (Auto) 0.8 0.3 Eosinophils # (Auto) 0.1 0.0 Basophils # (Auto) 0.1 0.0 CBC Comment DIFF FINAL DIFF FINAL Differential Comment Prothrombin Time 11.1 Prothromb Time International Ratio 1.1 Activated Partial Thromboplast Time 28.8 Blood Urea Nitrogen 13 16 Creatinine 0.90 0.79 Random Glucose 115 192 Total Protein 8.0 Albumin 3.7 Calcium Level 8.2 7.6 Alkaline Phosphatase 60 Aspartate Amino Transf (AST/SGOT) 42 Alanine Aminotransferase (ALT/SGPT) 23 Total Bilirubin 1.1 Sodium Level 134 138 Potassium Level 3.4 3.7 Chloride Level 99 104 Carbon Dioxide Level 27.4 23.0 Anion Gap 8 11 Estimat Glomerular Filtration Rate 60 70 Troponin I 0.09 0.11 0.09 B-Type Natriuretic Peptide 149 Lactic Acid Level 0.9 Date/Time Source Procedure Growth Status 11/21/17 03:43 Blood Peripheral Aerobic Blood Culture Pending Received 11/21/17 03:43 Blood Peripheral Anaerobic Blood Culture Pending Received 11/20/17 16:36 Nasal Washing Influenza Types A,B Antigen (JACOBO) - Final NEGATIVE FOR FLU A AND B ANTIGEN.... Complete Result Diagram: 11/21/17 0545 11/21/17 0545 Imaging Last 24 hours Impressions Chest X-Ray 11/20/17 1610 Signed Impressions: Service Date/Time: Monday, November 20, 2017 16:29 - CONCLUSION: Interval development of subsegmental infiltrates lower lateral left lung and right infrahilar region. MD Anuja Fernandez VTE Risk Assessment Caprinhillary VTE Risk Assessment: Mod/High Risk (score >= 2) Caprini Risk Assessment Model Point Value = 1 Point Value = 2 Point Value = 3 Point Value = 5 Age 41-60 Minor surgery BMI > 25 kg/m2 Swollen legs Varicose veins or History of unexplained or recurrent spontaneous Oral contraceptives or hormone replacement Sepsis (< 1 month) Serious lung disease, including pneumonia (< 1 month) Abnormal pulmonary function Acute myocardial infarction Congestive heart failure (< 1 month) History of inflammatory bowel disease Medical patient at bed rest Age 61-74 Arthroscopic surgery Major open surgery (> 45 min) Laparoscopic surgery (> 45 min) Malignancy Confined to bed (> 72 hours) Immobilizing plaster cast Central venous access Age >= 75 History of VTE Family history of VTE Factor V Leiden Prothrombin [id number] Lupus anticoagulant Anticardiolipin antibodies Elevated serum homocysteine Heparin-induced thrombocytopenia Other congenital or acquired thrombophilia Stroke (< 1 month) Elective arthroplasty Hip, pelvis, or leg fracture Acute spinal cord injury (< 1 month) Prophylaxis Regimen Total Risk Factor Score Risk Level Prophylaxis Regimen 0-1 Low Early ambulation 2 Moderate Order ONE of the following: *Sequential Compression Device (SCD) *Heparin 5000 units SQ BID 3-4 Higher Order ONE of the following medications: *Heparin 5000 units SQ TID *Enoxaparin/Lovenox 40 mg SQ daily (WT < 150 kg, CrCl > 30 mL/min) *Enoxaparin/Lovenox 30 mg SQ daily (WT < 150 kg, CrCl > 10-29 mL/min) *Enoxaparin/Lovenox 30 mg SQ BID (WT < 150 kg, CrCl > 30 mL/min) AND/OR *Sequential Compression Device (SCD) 5 or more Highest Order ONE of the following medications: *Heparin 5000 units SQ TID (Preferred with Epidurals) *Enoxaparin/Lovenox 40 mg SQ daily (WT < 150 kg, CrCl > 30 mL/min) *Enoxaparin/Lovenox 30 mg SQ daily (WT < 150 kg, CrCl > 10-29 mL/min) *Enoxaparin/Lovenox 30 mg SQ BID (WT < 150 kg, CrCl > 30 mL/min) AND *Sequential Compression Device (SCD) Assessment and Plan Assessment and Plan 82 yr old F w/ hypertension, hyperlipidemia, CAD s/p stent in LAD admitted for HCAP Problem List: (1) Healthcare-associated pneumonia ICD Codes: J18.9 - Pneumonia, unspecified organism Status: Acute Plan: Broad-spectrum antibiotics: Vancomycin started 11/20/17 Zosyn started 11/20/17 - s/p Rocephin and Azithromycin in ED-discontinued due to patient's recent hospitalization Urine Legionella and pneumococcal antigens pending Blood cultures pending Influenza nasal wash negative for influenza a or B CBC showing leukocytosis of 11.9 with neutrophil percentage of 90.8% Lactic acid 0.9 CXR demonstrates development of subsegmental infiltrates lower lateral left lung and right infrahilar region Adjunctive care: Solumedrol 40mg IV q12h Duonebs ANH q4h, albuterol neb PRN Tessalon pearls, mucinex, and magic mouth wash for cough/sore throat Tylenol 650mg PO q4h for fever (2) CAD (coronary artery disease) ICD Codes: I25.10 - Atherosclerotic heart disease of [place] coronary artery without angina pectoris Status: Chronic Plan: EKG: Sinus tachycardia at a rate of 100, occasional f premature complexes , normal axis, lateral T-wave inversions, inferior Q waves, anterior precordial Q waves, no definite evidence of acute ischemia. Compared to previous EKG from November 06 of this year, lateral precordial T-wave inversions are less pronounced on this EKG. Troponin at 0.09 -> 0.11 -> 0.09 Monitor on cardiac telemetry Cardiology to evaluate patient, known by Dr. Elizabeth Continue Plavix 75 mg PO daily and Aspirin chew 81mg daily Continue Imdur 30mg PO daily (3) HTN (hypertension) ICD Codes: I10 - Essential (primary) hypertension Status: Chronic Plan: Continue Amlodipine 10mg PO daily, Losartan 100mg PO daily, metoprolol tartrate 25mg PO bid (4) Hyperlipemia ICD Codes: E78.5 - Hyperlipidemia, unspecified Status: Chronic Plan: Continue atorvastatin 80mg PO hs (5) Hypokalemia ICD Codes: E87.6 - Hypokalemia Status: Acute Plan: K+ 3.4 on arrival and is 3.7 status post replacement Monitor and replete as needed (6) Nutrition, metabolism, and development symptoms ICD Codes: R63.8 - Other symptoms and signs concerning food and fluid intake Plan: Diet: Heart healthy diet as tolerated Fluids: NS 100mlshr vitals q4hr, monitor I &Os DVT ppx: heparin 5000 units q8hr Physician Certification 2 Midnight Certification Type: Admission for Inpatient Services Order for Inpatient Services The services are ordered in accordance with Medicare regulations or non- Medicare payer requirements, as applicable. In the case of services not specified as inpatient-only, they are appropriately provided as inpatient services in accordance with the 2-midnight benchmark. Estimated LOS (days): 2 2 days is the estimated time the patient will need to remain in the hospital, assuming treatment plan goals are met and no additional complications. Post-Hospital Plan: Not yet determined Joaquín Moore MD Nov 21, 2017 11:57
[2017-11-21] MEDS: VANCOMYCIN INJ 1,300 MG in SODIUM CHLORID 0.9% 500 ML INJ 500 ML IV SCH (14:54)
--- NOTE | 2017-11-21 16:51 | EKG ---
Date Performed: 11/21/2017 Time Performed: 04:12:05 PTAGE: 82 years EKG: Sinus rhythm SEPTAL MYOCARDIAL INFARCTION POSSIBLE INFERIOR MYOCARDIAL INFARCTION MODERATE T-WAVE ABNORMALITY, CO NSIDER LATERAL ISCHEMIA ABNORMAL ECG PREVIOUS TRACING : 11/20/2017 22.10 Compared to prior tracing, T wave laterally are more promin ent DOCTOR: Fermin Ascencio Interpretating Date/Time 11/21/2017 16:49:31
--- NOTE | 2017-11-21 17:07 | EKG ---
Date Performed: 11/20/2017 Time Performed: 22:10:03 PTAGE: 82 years EKG: Sinus rhythm WITH PACs POSSIBLE INFERIOR MYOCARDIAL INFARCTION LATERAL ST/T WAVE CHANGES, POSSIBLE ISCHEMIA ABNOR MAL ECG PREVIOUS TRACING : 11/20/2017 19.27 Since the prior tracing, there has been no significant guerrier DOCTOR: Fermin Ascencio Interpretating Date/Time 11/21/2017 17:05:53
[2017-11-21] MEDS: ATORVASTATIN 80 MG TAB PO SCH (20:26)
[2017-11-22] VITALS (8 sets, daily range): BP systolic 114–132; BP diastolic 55–74; PULSE 77–89; RESP 17–20; TEMP 96.6–97.9; O2SAT 94–98
[2017-11-22] MEDS: HEPARIN SODIUM - SQ 10,000 UNITS/ML VIAL SQ SCH ×3 (02:56→21:57)
[2017-11-22] MEDS: PIPERACIL-TAZO 4.5 GM PREMIX 100 ML IV SCH ×4 (02:56→21:57)
[2017-11-22] MEDS: METOPROLOL TARTRATE 25 MG TAB PO SCH ×2 (08:38→21:58)
[2017-11-22] MEDS: BENZONATATE 100 MG CAP PO PRN ×2 (08:38→22:41)
[2017-11-22] MEDS: ISOSORBIDE MONONITRATE 30 MG TAB PO SCH (08:38)
[2017-11-22] MEDS: methylPREDNISolone SOD SUCC 40 MG/1 ML VIAL IV PUSH SCH ×2 (08:38→21:57)
[2017-11-22] MEDS: SODIUM CHLORIDE 0.9% FLUSH 10 ML FLUSH IV FLUSH SCH ×2 (08:39→21:58)
[2017-11-22] MEDS: CLOPIDOGREL 75 MG TAB PO SCH (08:39)
[2017-11-22] MEDS: LOSARTAN 50 MG TAB PO SCH (08:39)
[2017-11-22] MEDS: guaiFENesin E.R. 600 MG TAB PO PRN (08:39)
[2017-11-22] MEDS: ASPIRIN 81 MG CHEW TAB CHEW SCH (08:39)
[2017-11-22 10:02] LABS: AUTOMATED NEUTROPHIL # 14.8 TH/MM3 (1.8-7.7); BASOPHIL % 0.1 % (0.0-2.0); HEMOGLOBIN 11.1 GM/DL (11.6-15.3); LYMPH % 6.1 % (9.0-44.0); MEAN CELL VOLUME 89.7 FL (80.0-100.0); MEAN CORPUSCULAR HEMOGLOBIN 30.1 PG (27.0-34.0); MEAN CORPUSCULAR HGB CONC 33.6 % (32.0-36.0); MEAN PLATELET VOLUME 8.7 FL (7.0-11.0); MONO % 4.8 % (0.0-8.0); MONOCYTE # 0.8 TH/MM3 (0-0.9); PLATELET COUNT 207 TH/MM3 (150-450); RED BLOOD COUNT 3.68 MIL/MM3 (4.00-5.30); RED CELL DISTRIBUTION WIDTH 13.9 % (11.6-17.2); WHITE BLOOD COUNT 16.7 TH/MM3 (4.0-11.0)
--- NOTE | 2017-11-22 10:21 | HHI.FPPN ---
Subjective Remarks No acute events overnight. Pt sitting up in bed, eating breakfast. Daughter at bedside. States that she is feeling better, still has productive cough of yellowish-clear sputum. Currently on 2L O2 NC. Otherwise, no other complaints this AM. She denies CP, SOB, abdominal pain, and N/V. Objective Vitals Vital Signs Date Time Temp Pulse Resp B/P (MAP) Pulse Ox O2 Delivery O2 Flow Rate FiO2 11/22/17 07:26 97.8 80 17 117/74 (88) 95 11/22/17 04:00 78 11/22/17 03:34 97.9 79 18 125/65 (85) 96 11/21/17 23:53 73 11/21/17 23:29 97.8 73 18 126/61 (82) 95 11/21/17 21:32 76 18 97 11/21/17 20:46 98.0 81 18 119/58 (78) 96 11/21/17 20:24 96 Nasal Cannula 2.00 11/21/17 20:05 78 11/21/17 16:28 79 11/21/17 16:27 97.4 79 18 124/56 (78) 96 11/21/17 11:37 97.8 65 18 120/60 (80) 97 I/O 11/21/17 11/21/17 11/21/17 11/22/17 11/22/17 11/22/17 07:00 15:00 23:00 07:00 15:00 23:00 Intake Total 200 ml 500 ml 613 ml Balance 200 ml 500 ml 613 ml Intake Oral 500 ml IV Total 200 ml 613 ml # Voids 1 Result Diagram: 11/22/17 0820 11/21/17 0545 Objective Remarks GENERAL: elderly female, lying in bed, currently on 2L NC, in NAD SKIN: No rashes, ecchymoses or lesions. Cool and dry. HEAD: Atraumatic. Normocephalic. No temporal or scalp tenderness. EYES: Pupils equal round and reactive. Extraocular motions intact. No scleral icterus. No injection or drainage. ENT: Nose without bleeding, purulent drainage or septal hematoma. Throat without erythema, tonsillar hypertrophy or exudate. Uvula midline. Airway patent. NECK: Trachea midline. No JVD or lymphadenopathy. Supple, nontender, no meningeal signs. CARDIOVASCULAR: RRR, no m/r/g RESPIRATORY: decreased breath sounds on L compared to R, mild wheezes throughout all lung [place] GASTROINTESTINAL: Abdomen soft, non-tender, nondistended. No hepato-splenomegaly , or palpable masses. No guarding. MUSCULOSKELETAL: Extremities without clubbing, cyanosis, or edema. No joint tenderness, effusion, or edema noted. No calf tenderness. NEUROLOGICAL: Awake, alert, and oriented x3. No neuro deficits. A/P Assessment and Plan 82 yr old F w/ hypertension, hyperlipidemia, CAD s/p stent in LAD admitted for HCAP Discharge Planning Home health PT Problem List: (1) Healthcare-associated pneumonia ICD Codes: J18.9 - Pneumonia, unspecified organism Status: Acute Plan: Broad-spectrum antibiotics: Continue Vancomycin started 11/20/17 Continue Zosyn started 11/20/17 - s/p Rocephin and Azithromycin in ED-discontinued due to patient's recent hospitalization Urine Legionella and pneumococcal antigens pending Blood cultures pending Influenza nasal wash negative for influenza a or B CBC showing leukocytosis of 11.9 with neutrophil percentage of 90.8% Lactic acid 0.9 CXR demonstrates development of subsegmental infiltrates lower lateral left lung and right infrahilar region Adjunctive care: Solumedrol 40mg IV q12h Duonebs ANH q4h, albuterol neb PRN Tessalon pearls, mucinex, and magic mouth wash for cough/sore throat Tylenol 650mg PO q4h for fever (2) CAD (coronary artery disease) ICD Codes: I25.10 - Atherosclerotic heart disease of [place] coronary artery without angina pectoris Status: Chronic Plan: EKG: Sinus tachycardia at a rate of 100, occasional f premature complexes , normal axis, lateral T-wave inversions, inferior Q waves, anterior precordial Q waves, no definite evidence of acute ischemia. Compared to previous EKG from November 06 of this year, lateral precordial T-wave inversions are less pronounced on this EKG. Troponin at 0.09 -> 0.11 -> 0.09 Monitor on cardiac telemetry Cardiology to evaluate patient, known by Dr. Elizabeth Continue Plavix 75 mg PO daily and Aspirin chew 81mg daily Continue Imdur 30mg PO daily (3) HTN (hypertension) ICD Codes: I10 - Essential (primary) hypertension Status: Chronic Plan: Continue Amlodipine 10mg PO daily, Losartan 100mg PO daily, metoprolol tartrate 25mg PO bid (4) Hyperlipemia ICD Codes: E78.5 - Hyperlipidemia, unspecified Status: Chronic Plan: Continue atorvastatin 80mg PO hs (5) Hypokalemia ICD Codes: E87.6 - Hypokalemia Status: Resolved Plan: K+ 3.4 on arrival and is 3.7 status post replacement Monitor and replete as needed (6) Nutrition, metabolism, and development symptoms ICD Codes: R63.8 - Other symptoms and signs concerning food and fluid intake Plan: Diet: Heart healthy diet as tolerated Fluids:not indicated at this time vitals q4hr, monitor I &Os DVT ppx: heparin 5000 units q8hr Kiera Elizondo MD R1 Nov 22, 2017 10:21
[2017-11-22 10:33] LABS: ALBUMIN 2.9 GM/DL (3.4-5.0); ALKALINE PHOSPHATASE 47 U/L (45-117); ALT (GPT) 20 U/L (10-53); AST (GOT) 22 U/L (15-37); BLOOD UREA NITROGEN 21 MG/DL (7-18); CALCIUM 8.5 MG/DL (8.5-10.1); CHLORIDE 107 MEQ/L (98-107); GLOMERULAR FILTRATION RATE 69 ML/MIN (>89); GLUCOSE,RANDOM 134 MG/DL (74-106); SODIUM (NA) 140 MEQ/L (136-145); TOTAL BILIRUBIN ADULT 0.5 MG/DL (0.2-1.0); TOTAL PROTEIN 6.7 GM/DL (6.4-8.2)
--- NOTE | 2017-11-22 14:08 | PD.CARD.PN ---
Subjective Subjective Remarks No CP, mild SOB, on O2 Objective Medications Current Medications Medications (Trade) Dose Ordered Sig/Billie Route Start Time Stop Time Status Last Admin (NS Flush) 2 ml UNSCH PRN IV FLUSH 11/20/17 18:45 (NS Flush) 2 ml BID IV FLUSH 11/20/17 21:00 11/22/17 08:39 (Norvasc) 10 mg DAILY PO 11/20/17 19:15 11/22/17 08:39 (Aspirin Chew) 81 mg DAILY CHEW 11/20/17 19:15 11/22/17 08:39 (Lipitor) 80 mg HS PO 11/20/17 21:00 11/21/17 20:26 (Plavix) 75 mg DAILY PO 11/20/17 19:15 11/22/17 08:39 (Imdur) 30 mg DAILY PO 11/20/17 19:17 11/22/17 08:38 (Cozaar) 100 mg DAILY PO 11/20/17 19:15 11/22/17 08:39 (Lopressor) 25 mg BID PO 11/20/17 21:00 11/22/17 08:38 Piperacillin Sod/ Tazobactam Sod 100 ml @ 200 mls/hr Q6H IV 11/20/17 21:00 11/22/17 08:39 Pharmacy Profile Note 0 ml @ 0 mls/hr UNSCH OTHER 11/20/17 19:30 (SoluMEDROL INJ) 40 mg Q12H IV PUSH 11/20/17 20:00 11/22/17 08:38 (Tylenol) 650 mg Q4H PRN PO 11/20/17 19:30 (Heparin Inj) 5,000 units Q8H SQ 11/20/17 20:00 11/22/17 02:56 (Narcan Inj) 0.4 mg UNSCH PRN IV PUSH 11/20/17 19:30 Vancomycin HCl 1300 mg/Sodium Chloride 513 ml @ 250 mls/hr Q24H IV 11/21/17 15:00 11/21/17 14:54 Miscellaneous Information SPECIFIC LAB TO BE DRAWN:VANCO TROUGH DATE TO BE DRMily.. ONCE ONCE .XX 11/23/17 14:45 11/23/17 14:46 (Tessalon) 100 mg TID PRN PO 11/20/17 21:00 2/12/18 08:38 (Mucinex Er) 600 mg BID PRN PO 11/20/17 21:00 11/22/17 08:39 (Magic Mouthwash Adult Liq) 5 ml QID PRN SWISH-SWAL 11/20/17 21:00 (Duoneb Neb) 1 ampule Q4HR NEB NEB 11/22/17 12:00 Vital Signs / I&O Vital Signs Date Time Temp Pulse Resp B/P (MAP) Pulse Ox O2 Delivery O2 Flow Rate FiO2 11/22/17 11:32 97.7 79 18 114/55 (74) 94 11/22/17 07:26 97.8 80 17 117/74 (88) 95 11/22/17 04:00 78 11/22/17 03:34 97.9 79 18 125/65 (85) 96 11/21/17 23:53 73 11/21/17 23:29 97.8 73 18 126/61 (82) 95 11/21/17 21:32 76 18 97 11/21/17 20:46 98.0 81 18 119/58 (78) 96 11/21/17 20:24 96 Nasal Cannula 2.00 11/21/17 20:05 78 11/21/17 16:28 79 11/21/17 16:27 97.4 79 18 124/56 (78) 96 I/O 11/21/17 11/21/17 11/21/17 11/22/17 11/22/17 11/22/17 07:00 15:00 23:00 07:00 15:00 23:00 Intake Total 200 ml 500 ml 613 ml Balance 200 ml 500 ml 613 ml Intake Oral 500 ml IV Total 200 ml 613 ml # Voids 1 Physical Exam GENERAL: In NAD. SKIN: Warm and dry. HEAD: Normocephalic. EYES: No scleral icterus. No injection or drainage. NECK: Supple, trachea midline. No JVD or lymphadenopathy. CARDIOVASCULAR: Regular rate and rhythm without murmurs, gallops, or rubs. RESPIRATORY: Breath sounds equal bilaterally. No accessory muscle use. Few rhonchi. GASTROINTESTINAL: Abdomen soft, non-tender, nondistended. MUSCULOSKELETAL: No cyanosis, or edema. Laboratory Laboratory Tests Test 11/22/17 08:20 White Blood Count 16.7 TH/MM3 Red Blood Count 3.68 MIL/MM3 Hemoglobin 11.1 GM/DL Hematocrit 33.0 % Mean Corpuscular Volume 89.7 FL Mean Corpuscular Hemoglobin 30.1 PG Mean Corpuscular Hemoglobin Concent 33.6 % Red Cell Distribution Width 13.9 % Platelet Count 207 TH/MM3 Mean Platelet Volume 8.7 FL Neutrophils (%) (Auto) 89.0 % Lymphocytes (%) (Auto) 6.1 % Monocytes (%) (Auto) 4.8 % Eosinophils (%) (Auto) 0.0 % Basophils (%) (Auto) 0.1 % Neutrophils # (Auto) 14.8 TH/MM3 Lymphocytes # (Auto) 1.0 TH/MM3 Monocytes # (Auto) 0.8 TH/MM3 Eosinophils # (Auto) 0.0 TH/MM3 Basophils # (Auto) 0.0 TH/MM3 CBC Comment DIFF FINAL Differential Comment Blood Urea Nitrogen 21 MG/DL Creatinine 0.80 MG/DL Random Glucose 134 MG/DL Total Protein 6.7 GM/DL Albumin 2.9 GM/DL Calcium Level 8.5 MG/DL Alkaline Phosphatase 47 U/L Aspartate Amino Transf (AST/SGOT) 22 U/L Alanine Aminotransferase (ALT/SGPT) 20 U/L Total Bilirubin 0.5 MG/DL Sodium Level 140 MEQ/L Potassium Level 3.6 MEQ/L Chloride Level 107 MEQ/L Carbon Dioxide Level 26.0 MEQ/L Anion Gap 7 MEQ/L Estimat Glomerular Filtration Rate 69 ML/MIN Assessment and Plan Problem List: (1) Dyspnea on exertion ICD Codes: R06.09 - Other forms of dyspnea Status: Acute (2) CAD (coronary artery disease) ICD Codes: I25.10 - Atherosclerotic heart disease of [place] coronary artery without angina pectoris Status: Chronic (3) Presence of stent in LAD coronary artery ICD Codes: Z95.5 - Presence of coronary angioplasty implant and graft Status: Acute (4) Pneumonia ICD Codes: J18.9 - Pneumonia, unspecified organism Status: Acute (5) HTN (hypertension) ICD Codes: I10 - Essential (primary) hypertension Status: Chronic (6) Hyperlipemia ICD Codes: E78.5 - Hyperlipidemia, unspecified Status: Chronic (7) COPD (chronic obstructive pulmonary disease) ICD Codes: J44.9 - Chronic obstructive pulmonary disease, unspecified Status: Acute Assessment and Plan No angina, still with mild dyspnea. Cardiac enzymes without any trend. Continue tx for pneumonia and COPD exacerbation. Continue tx for HTN and CAD. Increase activity. Nai Elizabeth MD Nov 22, 2017 14:08
[2017-11-22] MEDS: VANCOMYCIN INJ 1,300 MG in SODIUM CHLORID 0.9% 500 ML INJ 500 ML IV SCH (15:25)
[2017-11-22] MEDS: RESP: ALBUTEROL 2.5 MG/IPRATROPIUM 0.5 MG NEB (SCH) NEB ×3 (17:19→23:44)
[2017-11-22] MEDS: ATORVASTATIN 80 MG TAB PO SCH (21:58)
[2017-11-23] VITALS (7 sets, daily range): BP systolic 116–125; BP diastolic 54–65; PULSE 76–89; RESP 18–21; TEMP 96–97.5; O2SAT 93–96
[2017-11-23] MEDS: PIPERACIL-TAZO 4.5 GM PREMIX 100 ML IV SCH ×2 (03:18→08:45)
[2017-11-23] MEDS: RESP: ALBUTEROL 2.5 MG/IPRATROPIUM 0.5 MG NEB (SCH) NEB ×3 (03:36→11:42)
[2017-11-23] MEDS: HEPARIN SODIUM - SQ 10,000 UNITS/ML VIAL SQ SCH ×2 (05:14→12:00)
[2017-11-23 07:58] LABS: HEMOGLOBIN 10.9 GM/DL (11.6-15.3); MEAN CELL VOLUME 89.4 FL (80.0-100.0); MEAN CORPUSCULAR HEMOGLOBIN 30.5 PG (27.0-34.0); MEAN CORPUSCULAR HGB CONC 34.2 % (32.0-36.0); MEAN PLATELET VOLUME 8.7 FL (7.0-11.0); PLATELET COUNT 221 TH/MM3 (150-450); RED BLOOD COUNT 3.58 MIL/MM3 (4.00-5.30); RED CELL DISTRIBUTION WIDTH 14.2 % (11.6-17.2); WHITE BLOOD COUNT 17.8 TH/MM3 (4.0-11.0)
[2017-11-23 08:18] LABS: CALCIUM 8.1 MG/DL (8.5-10.1); CREATININE 0.83 MG/DL (0.50-1.00)
--- NOTE | 2017-11-23 08:26 | HHI.FPPN ---
Subjective Remarks No acute events overnight. Pt doing well this AM. Currently on 2L O2 NC. Nurse reports that she did not pass her walk test, will need to go home with home O2. Patient endorses coughing. Otherwise, no complaints this AM. She denies CP, abdominal pain, and N/V. (Kiera Elizondo MD R1) Objective Vitals Vital Signs Date Time Temp Pulse Resp B/P (MAP) Pulse Ox O2 Delivery O2 Flow Rate FiO2 11/23/17 07:31 97.4 88 18 125/65 (85) 93 11/23/17 07:26 94 Nasal Cannula 2.00 11/23/17 04:05 96.8 79 20 121/60 (80) 96 11/23/17 03:05 84 11/23/17 00:17 96.0 76 21 116/54 (74) 96 11/22/17 20:58 98 Nasal Cannula 2.00 11/22/17 20:24 96.6 89 20 122/60 (80) 98 11/22/17 17:23 97 Nasal Cannula 2.00 11/22/17 15:52 97.6 77 19 132/66 (88) 97 11/22/17 11:32 97.7 79 18 114/55 (74) 94 I/O 11/22/17 11/22/17 11/22/17 11/23/17 11/23/17 11/23/17 07:00 15:00 23:00 07:00 15:00 23:00 Intake Total 500 ml 613 ml 600 ml Balance 500 ml 613 ml 600 ml Intake Oral 500 ml 600 ml IV Total 613 ml # Voids 1 5 # Bowel Movements 1 (Kiera Elizondo MD R1) Result Diagram: 11/23/17 0640 11/23/17 0640 Objective Remarks GENERAL: elderly female, lying in bed, currently on 2L NC, in NAD SKIN: No rashes, ecchymoses or lesions. Cool and dry. HEAD: Atraumatic. Normocephalic. No temporal or scalp tenderness. EYES: Pupils equal round and reactive. Extraocular motions intact. No scleral icterus. No injection or drainage. ENT: Nose without bleeding, purulent drainage or septal hematoma. Throat without erythema, tonsillar hypertrophy or exudate. Uvula midline. Airway patent. NECK: Trachea midline. No JVD or lymphadenopathy. Supple, nontender, no meningeal signs. CARDIOVASCULAR: RRR, no m/r/g RESPIRATORY: mild wheezes throughout all lung [place], improved from prior exam GASTROINTESTINAL: Abdomen soft, non-tender, nondistended. No hepato-splenomegaly , or palpable masses. No guarding. MUSCULOSKELETAL: Extremities without clubbing, cyanosis, or edema. No joint tenderness, effusion, or edema noted. No calf tenderness. NEUROLOGICAL: Awake, alert, and oriented x3. No neuro deficits. (Kiera Elizondo MD R1) A/P Assessment and Plan 82 yr old F w/ hypertension, hyperlipidemia, CAD s/p stent in LAD admitted for HCAP Discharge Planning Home health PT Home O2 Discharge today (Kiera Elizondo MD R1) Attending Attestation Pt. examined and case reviewed with resident physician I have read the above note and agree with the assessment/plan as discussed with me I was involved in all medical decision making for this patient Joaquín Moore MD (Joaquín Moore MD) Problem List: (1) Healthcare-associated pneumonia ICD Codes: J18.9 - Pneumonia, unspecified organism Status: Acute Plan: Antibiotics: Patient will discharge on home Levaquin 750mg daily for 4 days Discontinue Vancomycin started 11/20/17 Discontinue Zosyn started 11/20/17 - s/p Rocephin and Azithromycin in ED-discontinued due to patient's recent hospitalization Urine Legionella and pneumococcal antigens pending Blood cultures NGTD Influenza nasal wash negative for influenza A or B CBC showing leukocytosis of 11.9 with neutrophil percentage of 90.8% Lactic acid 0.9 CXR demonstrates development of subsegmental infiltrates lower lateral left lung and right infrahilar region Adjunctive care: Solumedrol 40mg IV q12h, will be discharge on medrol dose pack Duonebs ANH q4h, albuterol neb PRN Tessalon pearls, mucinex, and magic mouth wash for cough/sore throat Tylenol 650mg PO q4h for fever (2) CAD (coronary artery disease) ICD Codes: I25.10 - Atherosclerotic heart disease of [place] coronary artery without angina pectoris Status: Chronic Plan: EKG: Sinus tachycardia at a rate of 100, occasional f premature complexes , normal axis, lateral T-wave inversions, inferior Q waves, anterior precordial Q waves, no definite evidence of acute ischemia. Compared to previous EKG from November 06 of this year, lateral precordial T-wave inversions are less pronounced on this EKG. Troponin at 0.09 -> 0.11 -> 0.09 Monitor on cardiac telemetry Evaluated by Dr. Elizabeth, continue tx for pneumonia as above, f/u outpatient Continue Plavix 75 mg PO daily and Aspirin chew 81mg daily Continue Imdur 30mg PO daily (3) HTN (hypertension) ICD Codes: I10 - Essential (primary) hypertension Status: Chronic Plan: Continue Amlodipine 10mg PO daily, Losartan 100mg PO daily, metoprolol tartrate 25mg PO bid (4) Hyperlipemia ICD Codes: E78.5 - Hyperlipidemia, unspecified Status: Chronic Plan: Continue atorvastatin 80mg PO hs (5) Hypokalemia ICD Codes: E87.6 - Hypokalemia Status: Resolved Plan: K+ 3.4 on arrival and is 3.7 status post replacement Monitor and replete as needed (6) Nutrition, metabolism, and development symptoms ICD Codes: R63.8 - Other symptoms and signs concerning food and fluid intake Plan: Diet: Heart healthy diet as tolerated Fluids:not indicated at this time vitals q4hr, monitor I &Os DVT ppx: heparin 5000 units q8hr (Kiera Elizondo MD R1) Kiera Elizondo MD R1 Nov 23, 2017 08:26 Joaquín Moore MD Nov 23, 2017 16:37
[2017-11-23] MEDS ORDERED: OXYGENTANK NAS.CANULA ×2 (08:30→08:46)
--- NOTE | 2017-11-23 08:32 | HHI.FF ---
Face to Face Verification Diagnosis: (1) COPD (chronic obstructive pulmonary disease) (2) Dyspnea on exertion (3) Healthcare-associated pneumonia (4) HTN (hypertension) (5) Hyperlipemia (6) CAD (coronary artery disease) Physical Therapy Order: Evaluate and Treat, Improve ambulation, Strength and gait training Home Health Nursing Order: Oxygen administration education I have seen patient Diane Flores on 11/23/17. My clinical findings support the need for the requested home health care services because: Ltd mobility - disease progression Patient has SOB Med compliance is questionable Limited ability to care for self High risk of falls I certify that my clinical findings support that this patient is homebound because: Hx COPD- exertion dyspnea/weakness Unsteady gait/balance Kiera Elizondo MD R1 Nov 23, 2017 08:32
[2017-11-23] MEDS: ASPIRIN 81 MG CHEW TAB CHEW SCH (08:45)
[2017-11-23] MEDS: ISOSORBIDE MONONITRATE 30 MG TAB PO SCH (08:45)
[2017-11-23] MEDS: CLOPIDOGREL 75 MG TAB PO SCH (08:45)
[2017-11-23] MEDS: METOPROLOL TARTRATE 25 MG TAB PO SCH (08:45)
[2017-11-23] MEDS: LOSARTAN 50 MG TAB PO SCH (08:45)
[2017-11-23] MEDS: methylPREDNISolone SOD SUCC 40 MG/1 ML VIAL IV PUSH SCH (08:45)
[2017-11-23] MEDS: SODIUM CHLORIDE 0.9% FLUSH 10 ML FLUSH IV FLUSH SCH (08:47)
[2017-11-23] MEDS ORDERED: MEDR4PAK PO (12:00)
[2017-11-23] MEDS ORDERED: LEVA750T9 PO (12:00)
[2017-11-23] MEDS ORDERED: guaiFENesin ER PO (12:00)
[2017-11-23] MEDS ORDERED: BENZ100 PO (12:00)
--- NOTE | 2017-11-23 12:02 | HHI.DCPOC ---
Discharge Care Plan Diagnosis: (1) COPD (chronic obstructive pulmonary disease) (2) CAD (coronary artery disease) (3) Pneumonia Goals to Promote Your Health * To prevent worsening of your condition and complications * To maintain your health at the optimal level Directions to Meet Your Goals Take your medications as prescribed Follow your dietary instruction Follow activity as directed Keep your appointments as scheduled Take your immunizations and boosters as scheduled If your symptoms worsen call your PCP, if no PCP go to Urgent Care Center or Emergency Room Smoking is Dangerous to Your Health. Avoid second hand smoke Call the 24-hour hour crisis hotline for domestic abuse at Kiera Elizondo MD R1 Nov 23, 2017 12:02
--- NOTE | 2017-11-23 12:02 | HHI.DS ---
Discharge Summary Admission Date Nov 21, 2017 at 08:17 Admitting Diagnosis Pneumonia (1) Healthcare-associated pneumonia Plan: Antibiotics: Patient will discharge on home Levaquin 750mg daily for 4 days Discontinue Vancomycin started 11/20/17 Discontinue Zosyn started 11/20/17 - s/p Rocephin and Azithromycin in ED-discontinued due to patient's recent hospitalization Urine Legionella and pneumococcal antigens pending Blood cultures NGTD Influenza nasal wash negative for influenza A or B CBC showing leukocytosis of 11.9 with neutrophil percentage of 90.8% Lactic acid 0.9 CXR demonstrates development of subsegmental infiltrates lower lateral left lung and right infrahilar region Adjunctive care: Solumedrol 40mg IV q12h, will be discharge on medrol dose pack Duonebs ANH q4h, albuterol neb PRN Tessalon pearls, mucinex, and magic mouth wash for cough/sore throat Tylenol 650mg PO q4h for fever ICD Codes: J18.9 - Pneumonia, unspecified organism Status: Acute (2) CAD (coronary artery disease) Plan: EKG: Sinus tachycardia at a rate of 100, occasional f premature complexes , normal axis, lateral T-wave inversions, inferior Q waves, anterior precordial Q waves, no definite evidence of acute ischemia. Compared to previous EKG from November 06 of this year, lateral precordial T-wave inversions are less pronounced on this EKG. Troponin at 0.09 -> 0.11 -> 0.09 Monitor on cardiac telemetry Evaluated by Dr. Elizabeth, continue tx for pneumonia as above, f/u outpatient Continue Plavix 75 mg PO daily and Aspirin chew 81mg daily Continue Imdur 30mg PO daily ICD Codes: I25.10 - Atherosclerotic heart disease of [place] coronary artery without angina pectoris Status: Chronic (3) HTN (hypertension) Plan: Continue Amlodipine 10mg PO daily, Losartan 100mg PO daily, metoprolol tartrate 25mg PO bid ICD Codes: I10 - Essential (primary) hypertension Status: Chronic (4) Hyperlipemia Plan: Continue atorvastatin 80mg PO hs ICD Codes: E78.5 - Hyperlipidemia, unspecified Status: Chronic (5) Hypokalemia Plan: K+ 3.4 on arrival and is 3.7 status post replacement Monitor and replete as needed ICD Codes: E87.6 - Hypokalemia Status: Resolved (6) Nutrition, metabolism, and development symptoms Plan: Diet: Heart healthy diet as tolerated Fluids:not indicated at this time vitals q4hr, monitor I &Os DVT ppx: heparin 5000 units q8hr ICD Codes: R63.8 - Other symptoms and signs concerning food and fluid intake Brief History Patient examined with resident medical team during morning rounds. She continues to complain of a significant cough with generalized fatigue and malaise. She states that her cough is nonproductive but it keeps her up at night and has not improved since being hospitalized. She also complains of continued overall delays and fatigue. She denies overt fevers but has felt chilled overnight. She feels that the breathing treatments are helping, however does not think she has received any cough medication. She denies any overt chest pain or palpitations, denies any vomiting but does endorse some nausea, she denies any productive sputum. In summary, this is an 82 yr old F w/ hypertension, hyperlipidemia, CAD s/p stent in LAD who presents with "feeling sick." Accompanied by daughter and granddaughter. Patient recently hospitalized on 11/06 for chest pain due to hypertensive emergency and medication noncompliance, discharged on 11/08. Daughter states that "she has been sick all week with a bug." Her 8 yr old grandson that lives with her has been experiencing flu-like symptoms, but has been improving with antibiotics. Daughter went to check on patient today and found her on a chair unable to move due to fatigue. She reports that her mom lives in a trailer, which was extremely hot upon arrival due to air conditioner being off. States that patient was also coughing up white-clearish mucus and had 1 episode of vomiting, productive of "greenish-bile fluid". Daughter became concerned and brought mom to ED. Patient is normally independent at baseline. Able to walk around on her own, rarely uses her walker, and able to dress and feed herself. Last meal was last night. No changes in appetite per patient. Patient endorses sore throat and congestion. Denies fevers, runny nose , diarrhea, CP, SOB, abdominal pain, and N/V. CBC/BMP: 11/23/17 0640 11/23/17 0640 Significant Findings Laboratory Tests Test 11/20/17 16:10 11/20/17 16:38 11/20/17 22:51 11/21/17 05:45 Neutrophils (%) (Auto) 79.2 % (16.0-70.0) 90.8 % (16.0-70.0) Monocytes (%) (Auto) 8.8 % (0.0-8.0) Random Glucose 115 MG/DL (74-106) 192 MG/DL (74-106) Calcium Level 8.2 MG/DL (8.5-10.1) 7.6 MG/DL (8.5-10.1) Aspartate Amino Transf (AST/SGOT) 42 U/L (15-37) Total Bilirubin 1.1 MG/DL (0.2-1.0) Sodium Level 134 MEQ/L (136-145) Potassium Level 3.4 MEQ/L (3.5-5.1) Estimat Glomerular Filtration Rate 60 ML/MIN (>89) 70 ML/MIN (>89) Troponin I 0.09 NG/ML (0.02-0.05) 0.11 NG/ML (0.02-0.05) 0.09 NG/ML (0.02-0.05) B-Type Natriuretic Peptide 149 PG/ML (0-100) White Blood Count 11.9 TH/MM3 (4.0-11.0) Lymphocytes (%) (Auto) 6.3 % (9.0-44.0) Neutrophils # (Auto) 10.8 TH/MM3 (1.8-7.7) Lymphocytes # (Auto) 0.7 TH/MM3 (1.0-4.8) Test 11/21/17 13:00 11/22/17 08:20 11/23/17 06:40 White Blood Count 16.7 TH/MM3 (4.0-11.0) 17.8 TH/MM3 (4.0-11.0) Red Blood Count 3.68 MIL/MM3 (4.00-5.30) 3.58 MIL/MM3 (4.00-5.30) Hemoglobin 11.1 GM/DL (11.6-15.3) 10.9 GM/DL (11.6-15.3) Hematocrit 33.0 % (35.0-46.0) 32.0 % (35.0-46.0) Neutrophils (%) (Auto) 89.0 % (16.0-70.0) Lymphocytes (%) (Auto) 6.1 % (9.0-44.0) Neutrophils # (Auto) 14.8 TH/MM3 (1.8-7.7) Blood Urea Nitrogen 21 MG/DL (7-18) Random Glucose 134 MG/DL (74-106) 173 MG/DL (74-106) Albumin 2.9 GM/DL (3.4-5.0) Estimat Glomerular Filtration Rate 69 ML/MIN (>89) 66 ML/MIN (>89) Calcium Level 8.1 MG/DL (8.5-10.1) PE at Discharge GENERAL: elderly female, lying in bed, currently on 2L NC, in NAD SKIN: No rashes, ecchymoses or lesions. Cool and dry. HEAD: Atraumatic. Normocephalic. No temporal or scalp tenderness. EYES: Pupils equal round and reactive. Extraocular motions intact. No scleral icterus. No injection or drainage. ENT: Nose without bleeding, purulent drainage or septal hematoma. Throat without erythema, tonsillar hypertrophy or exudate. Uvula midline. Airway patent. NECK: Trachea midline. No JVD or lymphadenopathy. Supple, nontender, no meningeal signs. CARDIOVASCULAR: RRR, no m/r/g RESPIRATORY: mild wheezes throughout all lung [place], improved from prior exam GASTROINTESTINAL: Abdomen soft, non-tender, nondistended. No hepato-splenomegaly , or palpable masses. No guarding. MUSCULOSKELETAL: Extremities without clubbing, cyanosis, or edema. No joint tenderness, effusion, or edema noted. No calf tenderness. NEUROLOGICAL: Awake, alert, and oriented x3. No neuro deficits. Kiera Elizondo MD R1 Nov 23, 2017 12:02
[2017-11-23] MEDS ORDERED: PHARMACY ORDERED LAB ONE (14:45)
--- NOTE | 2017-11-23 17:17 | PD.CARD.PN ---
Subjective Subjective Remarks No CP, mild SOB, feels better Objective Vital Signs / I&O Vital Signs Date Time Temp Pulse Resp B/P (MAP) Pulse Ox O2 Delivery O2 Flow Rate FiO2 11/23/17 11:49 97.5 80 21 125/63 (83) 96 11/23/17 08:00 89 11/23/17 07:50 2.00 11/23/17 07:31 97.4 88 18 125/65 (85) 93 11/23/17 07:26 94 Nasal Cannula 2.00 11/23/17 04:05 96.8 79 20 121/60 (80) 96 11/23/17 03:05 84 11/23/17 00:17 96.0 76 21 116/54 (74) 96 11/22/17 20:58 98 Nasal Cannula 2.00 11/22/17 20:24 96.6 89 20 122/60 (80) 98 11/22/17 17:23 97 Nasal Cannula 2.00 I/O 11/22/17 11/22/17 11/22/17 11/23/17 11/23/17 11/23/17 07:00 15:00 23:00 07:00 15:00 23:00 Intake Total 500 ml 613 ml 600 ml 240 ml Balance 500 ml 613 ml 600 ml 240 ml Intake Oral 500 ml 600 ml 240 ml IV Total 613 ml # Voids 1 5 # Bowel Movements 1 Physical Exam GENERAL: In NAD. SKIN: Warm and dry. HEAD: Normocephalic. EYES: No scleral icterus. No injection or drainage. NECK: Supple, trachea midline. No JVD or lymphadenopathy. CARDIOVASCULAR: Regular rate and rhythm without murmurs, gallops, or rubs. RESPIRATORY: Breath sounds equal bilaterally. No accessory muscle use. Few rhonchi. GASTROINTESTINAL: Abdomen soft, non-tender, nondistended. MUSCULOSKELETAL: No cyanosis, or edema. Laboratory Laboratory Tests Test 11/23/17 06:40 White Blood Count 17.8 TH/MM3 Red Blood Count 3.58 MIL/MM3 Hemoglobin 10.9 GM/DL Hematocrit 32.0 % Mean Corpuscular Volume 89.4 FL Mean Corpuscular Hemoglobin 30.5 PG Mean Corpuscular Hemoglobin Concent 34.2 % Red Cell Distribution Width 14.2 % Platelet Count 221 TH/MM3 Mean Platelet Volume 8.7 FL Blood Urea Nitrogen 18 MG/DL Creatinine 0.83 MG/DL Random Glucose 173 MG/DL Calcium Level 8.1 MG/DL Sodium Level 141 MEQ/L Potassium Level 3.5 MEQ/L Chloride Level 107 MEQ/L Carbon Dioxide Level 28.0 MEQ/L Anion Gap 6 MEQ/L Estimat Glomerular Filtration Rate 66 ML/MIN Assessment and Plan Problem List: (1) Dyspnea on exertion ICD Codes: R06.09 - Other forms of dyspnea Status: Acute (2) CAD (coronary artery disease) ICD Codes: I25.10 - Atherosclerotic heart disease of [place] coronary artery without angina pectoris Status: Chronic (3) Presence of stent in LAD coronary artery ICD Codes: Z95.5 - Presence of coronary angioplasty implant and graft Status: Acute (4) Pneumonia ICD Codes: J18.9 - Pneumonia, unspecified organism Status: Acute (5) HTN (hypertension) ICD Codes: I10 - Essential (primary) hypertension Status: Chronic (6) Hyperlipemia ICD Codes: E78.5 - Hyperlipidemia, unspecified Status: Chronic (7) COPD (chronic obstructive pulmonary disease) ICD Codes: J44.9 - Chronic obstructive pulmonary disease, unspecified Status: Acute Assessment and Plan Remains stable from cardiac standpoint. No angina, still with mild dyspnea. Cardiac enzymes without any trend, unlikely to represent ACS. Continue tx for pneumonia and COPD exacerbation. Continue tx for HTN and CAD. Increase activity. Will schedule f/u in our office after discharge. Nai Elizabeth MD Nov 23, 2017 17:17
[2017-11-24] MEDS ORDERED: OXYGENTANK NAS.CANULA (10:16)
[2017-11-24] MEDS ORDERED: FLUTI44I INH ×2 (10:21→10:45)
[2017-11-24] MEDS ORDERED: INSPIREASE DRUG1 EA (10:21)
== END 2017-11-23 14:24 | disposition home health service (06) | DRG 190 ==
LOC: NEPC 15:12 → NEDA 17:50 → NEPHCDU 19:28 → OBSVTOIN 11-21 08:17
PROVIDERS: ADMIT Family Medicine; ATTEND Family Medicine
DX: J44.0 Chronic obstructive pulmonary disease with (acute) lower respiratory infection (principal); J18.9 Pneumonia, unspecified organism; J44.1 Chronic obstructive pulmonary disease with (acute) exacerbation; E87.6 Hypokalemia; I10 Essential (primary) hypertension; E78.5 Hyperlipidemia, unspecified; I25.2 Old myocardial infarction; R00.0 Tachycardia, unspecified; I25.10 Atherosclerotic heart disease of native coronary artery without angina pectoris; F17.200 Nicotine dependence, unspecified, uncomplicated; Y95 Nosocomial condition; Z85.3 Personal history of malignant neoplasm of breast; Z95.5 Presence of coronary angioplasty implant and graft; Z96.652 Presence of left artificial knee joint
CPT/HCPCS: 71045; 80048; 80053; 83605; 83880; 84484; 85025; 85027; 85610; 85730; 87040; 87070; 87205; 87804; 93005; 94150; 94618; 94640; 94664; 96361; 96365; 96368; 96372; 96375; 96376; G0378; G8987-GP; G8988-GP; J0456; J0696; J1644; J2543; J2920; J3370; J7030; J7040; J7050

== ENCOUNTER 2017-11-23 23:27 | Observation (INO) | payer MEDICARE, MEDICAID ==
[~2017-11-23] VITALS: Ht 167.6 cm; Wt 90.0 kg
[~2017-11-23 23:27] MED LIST changes: +BENZ100 PO; +LEVA750T9 PO; +MEDR4PAK PO; +OXYGENTANK NAS.CANULA; +guaiFENesin ER PO
[2017-11-23 23:32] VITALS: BP 156/72; PULSE 78; RESP 32; TEMP 97.7; O2SAT 95
[2017-11-24] MEDS ORDERED: RESP: LIDOCAINE HCL 4% PF 5 ML NEB NEB ONE
[2017-11-24] MEDS ORDERED: RESP: ALBUTEROL 2.5 MG/IPRATROPIUM 0.5 MG NEB (SCH) NEB ONE
--- NOTE | 2017-11-24 00:07 | RADRPT ---
EXAM DATE/TIME: 11/23/2017 23:55 [facility] COMPARISON: CHEST SINGLE AP, November 20, 2017, 16:29. INDICATIONS : Shortness of breath. MEDICAL HISTORY : Hypertension. Chronic obstructive pulmonary disease. Myocardial infarction. SURGICAL HISTORY : Mastectomy, left. ENCOUNTER: Initial ACUITY: 1 day PAIN SCORE: 0/10 LOCATION: Bilateral chest FINDINGS: Reidentified is stable patchy basilar airspace disease. Cardiomegaly. No obvious effusions. Osseous s tructures are intact. CONCLUSION: No significant change has occurred. Rodrigo England MD on November 24, 2017 at 0:05 Board Certified Radiologist. This report was verified electronically.
--- NOTE | 2017-11-24 01:02 | HHI.HP ---
HPI Service Family Medicine Primary Care Physician No Primary Care Physician Admission Diagnosis Pneumonia Diagnoses: International Travel<30 Days: No Contact w/Intl Traveler<30days: No Known Affected Area: No History of Present Illness The patient is a pleasant 82 year old woman with h/o HTN, CAD s/p stenting, HLD being readmitted due to shortness of breath and tachypnea after her oxygen ran out at home. The patient was discharged on 11/23 after being admitted here from -11/23 for HCAP. The patient states she got home around 14:00 and ran out of O2 at [place]. 20:00. About 90 minutes later she began to feel very short of breath, tachypneic, and anxious. She states she was lying in bed when her symptoms began. She states she currently feels much better without any shortness of breath after receiving a breathing treatment earlier in the ED. She states she was able to obtain all of her discharge medications including Levaquin and has taken her first dose of this. She denies any chest pain, palpitations, fevers, headaches, abdominal pain. States her cough has improved since her previous admission but is still present and continues to be productive. (Hugh Daniel MD) Review of Systems Constitutional: DENIES: Fever, Chills, Dizziness, Change in appetite Eyes: DENIES: Blurred vision, Diplopia Respiratory: COMPLAINS OF: Cough, Sputum production, Shortness of breath Cardiovascular: DENIES: Chest pain, Palpitations Gastrointestinal: COMPLAINS OF: Constipation (Endorses passing small sometimes hard stools, BMs are regular), DENIES: Abdominal pain, Black stools, Bloody stools, Diarrhea, Nausea, Vomiting Genitourinary: DENIES: Hematuria, Dysuria Integumentary: DENIES: Rash Neurologic: DENIES: Headache, Localized weakness (Hugh Daniel MD) Past Family Social History Past Medical History HTN Hx of Breast CA Hyperlipidemia CAD s/p LAD stent 02/27/17 Past Surgical History Cardiac cath 02/23/17 Bilateral Cataract Surgery Total Hysterectomy Left Mastectomy Left knee replacement (Hugh Daniel MD) Allergies: Coded Allergies: lisinopril (Unverified Allergy, Mild, COUGH, 11/23/17) Family History No FH of DM or CAD Social History Never smoker Denies alcohol or illicit drug use (Hugh Daniel MD) Physical Exam Vital Signs Vital Signs Date Time Temp Pulse Resp B/P (MAP) Pulse Ox O2 Delivery O2 Flow Rate FiO2 11/23/17 23:32 97.7 78 32 156/72 (100) 95 Physical Exam GENERAL: NAD, lying comfortably in bed NEURO: Alert. Normal speech. [place] grossly intact. Motor grossly normal. SKIN: Warm and dry. No rashes or erythema. HEAD: Normocephalic. Atraumatic. EYES: PERRL. EOMI. No scleral icterus. No injection or drainage. ENT: No nasal drainage. Moist mucous membranes. No oral ulcers or lesions. NECK: Supple, trachea midline. No JVD or lymphadenopathy. CARDIOVASCULAR: Regular rate and rhythm without murmurs, rubs, or gallops. Peripheral pulses 2+. Capillary refill < 2 seconds. RESPIRATORY: Coarse rales in mid and lower lung [place] bilaterally, no wheezing or rhonchi. Breath sounds are equal. No accessory muscle use. GASTROINTESTINAL: Abdomen soft, nontender, protuberant. No rebound tenderness. No guarding. MUSCULOSKELETAL: No lower extremity edema. Normal range of motion. No calf tenderness. BACK: Nontender without obvious deformity. (Hugh Daniel MD) Caprini VTE Risk Assessment Caprini VTE Risk Assessment: Mod/High Risk (score >= 2) Caprini Risk Assessment Model Point Value = 1 Point Value = 2 Point Value = 3 Point Value = 5 Age 41-60 Minor surgery BMI > 25 kg/m2 Swollen legs Varicose veins or History of unexplained or recurrent spontaneous Oral contraceptives or hormone replacement Sepsis (< 1 month) Serious lung disease, including pneumonia (< 1 month) Abnormal pulmonary function Acute myocardial infarction Congestive heart failure (< 1 month) History of inflammatory bowel disease Medical patient at bed rest Age 61-74 Arthroscopic surgery Major open surgery (> 45 min) Laparoscopic surgery (> 45 min) Malignancy Confined to bed (> 72 hours) Immobilizing plaster cast Central venous access Age >= 75 History of VTE Family history of VTE Factor V Leiden Prothrombin [id number] Lupus anticoagulant Anticardiolipin antibodies Elevated serum homocysteine Heparin-induced thrombocytopenia Other congenital or acquired thrombophilia Stroke (< 1 month) Elective arthroplasty Hip, pelvis, or leg fracture Acute spinal cord injury (< 1 month) Prophylaxis Regimen Total Risk Factor Score Risk Level Prophylaxis Regimen 0-1 Low Early ambulation 2 Moderate Order ONE of the following: *Sequential Compression Device (SCD) *Heparin 5000 units SQ BID 3-4 Higher Order ONE of the following medications: *Heparin 5000 units SQ TID *Enoxaparin/Lovenox 40 mg SQ daily (WT < 150 kg, CrCl > 30 mL/min) *Enoxaparin/Lovenox 30 mg SQ daily (WT < 150 kg, CrCl > 10-29 mL/min) *Enoxaparin/Lovenox 30 mg SQ BID (WT < 150 kg, CrCl > 30 mL/min) AND/OR *Sequential Compression Device (SCD) 5 or more Highest Order ONE of the following medications: *Heparin 5000 units SQ TID (Preferred with Epidurals) *Enoxaparin/Lovenox 40 mg SQ daily (WT < 150 kg, CrCl > 30 mL/min) *Enoxaparin/Lovenox 30 mg SQ daily (WT < 150 kg, CrCl > 10-29 mL/min) *Enoxaparin/Lovenox 30 mg SQ BID (WT < 150 kg, CrCl > 30 mL/min) AND *Sequential Compression Device (SCD) (Hugh Daniel MD) Assessment and Plan Assessment and Plan 82 year old woman being admitted due to SOB after home O2 ran out. Code Status Full code Discussed Condition With [facility] family medicine team (Hugh Daniel MD) Attending Attestation Patient seen and examined. Case reviewed and discussed with the resident team. Agree with plan of care as discussed with me and documented in the resident note. pt and daughter stated she was sent home with an oxygen tank but no respiratory company came to her house and she did not know their phone number so just returned to the hospital when her oxygen ran out. She feels well on oxygen and wishes to go home today. her daughter is with her and plans on stopping by the oxygen supplier on the way home so there should not be a repeat of yesterday. suspect asthma as she has a history of this and was never a smoker. recommend steroid inhaler and also strongly encouraged her to find a primary care Dr and follow up (Giselle Jeffries MD) Problem List: (1) Shortness of breath ICD Codes: R06.02 - Shortness of breath Status: Acute Plan: Improved s/p duonebs and lidocaine nebs in the ED Consider acute hypoxia due to inadequate O2 supply, COPD exacerbation, P/E, pneumonia Continue duonebs q4h while awake Albuterol as needed CM consult to assist with discharge needs including home oxygen (2) Pneumonia ICD Codes: J18.9 - Pneumonia, unspecified organism Plan: Continue Levaquin 750 mg po daily Continue medrol dosepack, instruct patient to continue with appropriate dose upon discharge Continue supportive therapy, duonebs and albuterol as above, tessalon or mucinex prn cough (3) Hypertension ICD Codes: I10 - Essential (primary) hypertension Status: Chronic Plan: Continue home antihypertensives - Amlodipine 10 mg po daily - Losartan 100 mg po daily - Metoprolol tart 25 mg po bid (4) CAD (coronary artery disease) ICD Codes: I25.10 - Atherosclerotic heart disease of [place] coronary artery without angina pectoris Status: Chronic Plan: Continue aspirin and plavix (5) Hyperlipidemia ICD Codes: E78.5 - Hyperlipidemia, unspecified Status: Chronic Plan: Continue Lipitor (6) Nutrition, metabolism, and development symptoms ICD Codes: R63.8 - Other symptoms and signs concerning food and fluid intake Plan: Fluids: PO Heart healthy diet Protonix 40 mg po daily for GI ppx DVT ppx: Lovenox 40 mg sq q24h (Hugh Daniel MD) Physician Certification 2 Midnight Certification Type: Admission for Inpatient Services Order for Inpatient Services The services are ordered in accordance with Medicare regulations or non- Medicare payer requirements, as applicable. In the case of services not specified as inpatient-only, they are appropriately provided as inpatient services in accordance with the 2-midnight benchmark. Estimated LOS (days): 1 days is the estimated time the patient will need to remain in the hospital, assuming treatment plan goals are met and no additional complications. Post-Hospital Plan: Home (Hugh Daniel MD) Hugh Daniel MD Nov 24, 2017 01:02 Giselle Jeffries MD Nov 24, 2017 11:17
[2017-11-24] MEDS ORDERED: RESP: ALBUTEROL 2.5 MG/3 ML NEB (PRN) NEB (01:15)
[2017-11-24] MEDS ORDERED: MAGNESIUM HYDROXIDE SUSP 30 ML CUP PO PRN (01:15)
[2017-11-24] MEDS ORDERED: BENZONATATE 100 MG CAP PO PRN (01:15)
[2017-11-24] MEDS ORDERED: NITROGLYCERIN 0.3 MG SL 100 TABS/BTL SL PRN (01:15)
[2017-11-24] MEDS ORDERED: guaiFENesin E.R. 600 MG TAB PO PRN (01:30)
[2017-11-24] MEDS: PANTOPRAZOLE SOD 40 MG DELAYED RELEASE TAB PO SCH ×2 (01:49→08:54)
[2017-11-24] MEDS: DOCUSATE SODIUM 50 MG/SENNA 8.6 MG TAB PO SCH ×2 (01:49→08:53)
[2017-11-24 01:52] VITALS: O2SAT 96
[2017-11-24] MEDS: RESP: ALBUTEROL 2.5 MG/IPRATROPIUM 0.5 MG NEB (SCH) NEB ×3 (04:00→10:40)
[2017-11-24 07:13] VITALS: O2SAT 97
[2017-11-24 07:33] VITALS: BP 139/81; PULSE 75; RESP 24; O2SAT 97
[2017-11-24] MEDS ORDERED: methylPREDNISolone 4 MG TAB PO ONE (08:00)
[2017-11-24] MEDS ORDERED: ENOXAPARIN SODIUM 40 MG/0.4 ML SYRINGE SQ SCH (09:00)
[2017-11-24] MEDS ORDERED: ASPIRIN 81 MG CHEW TAB CHEW SCH (09:00)
[2017-11-24] MEDS ORDERED: ISOSORBIDE MONONITRATE 30 MG CR TAB (IMDUR) PO SCH (09:00)
[2017-11-24] MEDS ORDERED: LEVOFLOXACIN 750 MG TAB PO SCH (09:00)
[2017-11-24] MEDS ORDERED: LOSARTAN 50 MG TAB PO SCH (09:00)
[2017-11-24] MEDS ORDERED: CLOPIDOGREL 75 MG TAB PO SCH (09:00)
[2017-11-24] MEDS ORDERED: METOPROLOL TARTRATE 25 MG TAB PO SCH (09:00)
[2017-11-24 10:01] VITALS: BP 148/72; PULSE 7; PULSE 75; RESP 20; O2SAT 98
[2017-11-24] MEDS ORDERED: OXYGENTANK NAS.CANULA (10:16)
[2017-11-24] MEDS ORDERED: INSPIREASE DRUG1 EA (10:21)
[2017-11-24] MEDS ORDERED: FLUTI44I INH ×2 (10:21→10:45)
--- NOTE | 2017-11-24 10:22 | HHI.DCPOC ---
Discharge Care Plan Diagnosis: (1) Healthcare-associated pneumonia Goals to Promote Your Health * To prevent worsening of your condition and complications * To maintain your health at the optimal level Directions to Meet Your Goals Take your medications as prescribed Follow your dietary instruction Follow activity as directed Keep your appointments as scheduled Take your immunizations and boosters as scheduled If your symptoms worsen call your PCP, if no PCP go to Urgent Care Center or Emergency Room Smoking is Dangerous to Your Health. Avoid second hand smoke Call the 24-hour hour crisis hotline for domestic abuse at Kiera Elizondo MD R1 Nov 24, 2017 10:22
--- NOTE | 2017-11-24 10:22 | HHI.FF ---
Face to Face Verification Diagnosis: (1) Healthcare-associated pneumonia (2) Hypertension (3) COPD (chronic obstructive pulmonary disease) Physical Therapy Order: Evaluate and Treat, Improve ambulation, Strength and gait training Home Health Nursing Order: Signs/symptoms of disease process Oxygen administration education I have seen patient Diane Flores on 11/24/17. My clinical findings support the need for the requested home health care services because: Patient has SOB Deconditioned w/ increased weakness Limited ability to care for self High risk of falls I certify that my clinical findings support that this patient is homebound because: Hx COPD- exertion dyspnea/weakness Kiera Elizondo MD R1 Nov 24, 2017 10:22
[2017-11-24 10:50] VITALS: BP 140/70; PULSE 72; RESP 18; O2SAT 98
[2017-11-24] MEDS ORDERED: ATORVASTATIN 80 MG TAB PO SCH (21:00)
--- NOTE | 2017-11-24 21:24 | EKG ---
Date Performed: 11/23/2017 Time Performed: 23:41:39 PTAGE: 82 years EKG: Sinus rhythm ST DEVIATION AND MODERATE T-WAVE ABNORMALITY, CONSIDER LATERAL ISCHEMIA ABNORMAL ECG NO PREVIOUS TRACING DOCTOR: Billy Shaikh Interpretating Date/Time 11/24/2017 21:22:35
== END 2017-11-24 10:59 | disposition home or self-care (01) ==
LOC: NEPC 23:27 → NEDA 11-24 00:34 → NEDH 11-24 05:06
PROVIDERS: ADMIT Family Medicine; ATTEND Family Medicine
DX: J18.9 Pneumonia, unspecified organism (principal); I10 Essential (primary) hypertension; I25.10 Atherosclerotic heart disease of native coronary artery without angina pectoris; E78.5 Hyperlipidemia, unspecified; J44.9 Chronic obstructive pulmonary disease, unspecified; I25.2 Old myocardial infarction; R94.31 Abnormal electrocardiogram [ECG] [EKG]; Z95.5 Presence of coronary angioplasty implant and graft; Z99.81 Dependence on supplemental oxygen; Z85.3 Personal history of malignant neoplasm of breast; Z96.652 Presence of left artificial knee joint; Z90.710 Acquired absence of both cervix and uterus; Z79.899 Other long term (current) drug therapy
CPT/HCPCS: 71045; 93005; 94640; 94664; 96372; 99283; G0378; J1650; J7509

== ENCOUNTER 2018-07-01 02:17 | Observation (INO) ==
[2018-07-01] MEDS ORDERED: Morphine Inj 4 MG/ML Vial IV.PUSH ONE (02:36)
--- NOTE | 2018-07-01 02:59 | XR ---
EXAM DATE: 07/01/2018 2:56 AM EDT AGE/SEX: 82 years / Female INDICATIONS: Cough, shortness of breath for 12 hours CLINICAL DATA: This is the patient's initial encounter. Patient reports that signs and symptoms have been present for 1 day and indicates a pain score of 5/10. MEDICAL/SURGICAL HISTORY: . Hypertension. Chronic obstructive pulmonary disease. Myocardial inf arction. Mastectomy, left. Cardiac stent COMPARISON: [facility] [place], CHEST SINGLE AP, 11/23/2017. . FINDINGS: A single AP view of the chest demonstrates the lungs to be symmetrically aerated without evidence of mass, infiltrate or effusion. The cardiomediastinal contours are unremarkable. No acute bony abnorma lity demonstrated.. CONCLUSION: No acute cardiopulmonary disease demonstrated. Electronically signed by: Stefan Navarro MD 07/01/2018 2:58 AM EDT
[2018-07-01 03:09] LABS: Baso # (Auto) 0.1 th/mm3 (0.0-0.2); Baso % (Auto) 0.9 % (0.0-2.0); Eos # (Auto) 0.5 th/mm3 (0.0-0.4); Hemoglobin 13.3 gm/dL (11.6-15.3); Lymph # (Auto) 1.9 th/mm3 (1.0-4.8); Lymph % (Auto) 27.7 % (9.0-44.0); Mean Corpuscular Hemoglobin 31.5 pg (27.0-34.0); Mean Corpuscular Volume 92.6 fL (80.0-100.0); Mean Platelet Volume 8.3 fL (7.0-11.0); Mono # (Auto) 0.7 th/mm3 (0.0-0.9); Mono % (Auto) 10.9 % (0.0-8.0); Neut # (Auto) 3.7 th/mm3 (1.8-7.7); Neut % (Auto) 53.5 % (16.0-70.0); Platelet Count 221 th/mm3 (150-450); Red Blood Count 4.21 mil/mm3 (4.00-5.30); Red Cell Distribution Width 13.2 % (11.6-17.2); White Blood Count 6.9 th/mm3 (4.0-11.0)
--- NOTE | 2018-07-01 03:11 | ED ---
HPI General Chief Complaint: Chest Pain Stated Complaint: chest pain Time Seen by Provider: 07/01/18 02:29 Source: patient and old records reviewed Mode of arrival: ambulatory Limitations: no limitations History of Present Illness MD complaint: chest pain STEMI Alert: No Time: 00:00 Duration: constant Onset: during rest Pain location: substernal Severity scale (1-10): 4 Quality: tightness Pain radiation: none Relieving factors: nothing Exacerbating factors: nothing Context: other (h/o CAD) Treatments prior to arrival chest pain: nitroglycerin (1 dose with no change) Related Data Home Medications Medication Instructions Recorded Confirmed Unable to Obtain Home Meds 07/01/18 07/01/18 Allergies Allergy/AdvReac Type Severity Reaction Status Date / Time lisinopril Allergy Mild COUGH Unverified 07/01/18 02:23 Review of Systems ROS: all other systems reviewed are negative [facility] Medical History Medical History COPD (chronic obstructive pulmonary disease) (Acute) GERD (gastroesophageal reflux disease) (Acute) Heart attack (Acute) High cholesterol (Acute) Hypertension (Acute) Surgical History Surgical History History of cardiac catheterization (Acute) History of lumpectomy of left breast (Acute) Stented coronary artery (Acute) Social History Social History Substance History: No History of Abuse Second Hand Smoke Exposure: No Smoking Status: Never smoker How Often Do You Have a Drink Containing Alcohol: Never Recent Travel in [facility] within the Last 8 Weeks: No Recent Out of Country Travel within the Last 8 Weeks: No Immunization History Tetanus Immunization: Unsure Hx Influenza Vaccine This Season: No Exam Const General: cooperative, healthy appearing and comfortable Orientation: alert, awake and oriented x3 HENMT Head: normal to inspection, normocephalic and atraumatic Eyes General: appearance normal, both eyes and all related structures Conjunctivae: conjunctivae normal Sclera: sclerae normal EOM: EOM intact bilaterally Neck Neck: normal visual inspection and full ROM Chest Chest: normal inspection of the chest Resp Effort & Inspection: normal respiratory effort and able to speak in complete sentences Auscultation: clear to auscultation bilaterally Cardio Rate: regular rate Rhythm: regular rhythm Heart Sounds: S1 normal and S2 normal GI Inspection: normal to inspection Palpation: soft Back/Spine/Pelvis Cervical Spine: cervical ROM normal Thoracic/Lumbar Spine: thoraco-lumbar ROM normal Skin General: no rashes or lesions noted, turgor normal and dry skin Neuro General: alert, awake, oriented x3, moves all extremities and CN's II-XI intact bilaterally Extrem General: normal to inspection, full ROM and no pedal edema Psych Appearance: grossly normal Mental Status: mental status grossly normal Speech and Movement: speech and movement normal Mood: congruent mood Affect: normal affect Attitude: cooperative Thought Process: normal Thought Content: normal Judgment: judgment good Course Consultations Consultation #1: Dr. Maldonado Time: 04:05 Initial Documented Vital Signs Temperature 98 F 07/01/18 02:23 Pulse Rate 73 07/01/18 02:23 Respiratory Rate 16 07/01/18 02:23 Blood Pressure 186/86 H 07/01/18 02:23 Pulse Oximetry 97 07/01/18 02:23 Last Documented Vital Signs Temperature 98 F 07/01/18 02:23 Pulse Rate 73 07/01/18 02:23 Respiratory Rate 16 07/01/18 02:23 Blood Pressure 186/86 H 07/01/18 02:23 Pulse Oximetry 97 07/01/18 02:23 Medical Decision Making MDM Narrative Medical decision making narrative: This is a patient with a known history of coronary artery disease who presents with substernal chest pain which started at midnight. She took one sublingual nitroglycerin prior to arrival with no change in her symptoms. Cardiac workup has been initiated. She has been given morphine and Nitropaste. I anticipate admission to the chest pain center. Medical Screen Exam Complete: Yes Emergency Medical Condition: Yes Differential Diagnosis Differential Diagnosis: Differential diagnosis of chest pain includes but is not limited to musculoskeletal pain, pulmonary embolism, acute coronary syndrome , pneumonia, pleurisy Medical Records Medical records reviewed: Yes I reviewed the patient's medical records. Patient was here in October with similar complaints. She was ruled out based upon serial enzymes. She was diagnosed with chest pain secondary to hypertension. She had her most recent cardiac catheterization in February 2017 which showed moderate coronary artery disease. Medical treatment was recommended. Lab Data Lab results reviewed: Yes I reviewed the patient's lab results. Result diagrams: 07/01/18 02:15 07/01/18 02:15 Lab Results 09/21/18 09/21/18 Range/Units 02:15 02:15 WBC 6.9 (4.0-11.0) th/mm3 RBC 4.21 (4.00-5.30) mil/mm3 Hgb 13.3 (11.6-15.3) gm/dL Hct 39.0 (35.0-46.0) % MCV 92.6 (80.0-100.0) fL MCH 31.5 (27.0-34.0) pg MCHC 34.0 (32.0-36.0) % RDW 13.2 (11.6-17.2) % Plt Count 221 (150-450) th/mm3 MPV 8.3 (7.0-11.0) fL Neut % (Auto) 53.5 (16.0-70.0) % Lymph % (Auto) 27.7 (9.0-44.0) % [place] % (Auto) 10.9 H (0.0-8.0) % Eos % (Auto) 7.0 H (0.0-4.0) % Baso % (Auto) 0.9 (0.0-2.0) % Neut # (Auto) 3.7 (1.8-7.7) th/mm3 Lymph # (Auto) 1.9 (1.0-4.8) th/mm3 [place] # (Auto) 0.7 (0.0-0.9) th/mm3 Eos # (Auto) 0.5 H (0.0-0.4) th/mm3 Baso # (Auto) 0.1 (0.0-0.2) th/mm3 WBC Differential . Differential Comment Auto diff final Sodium 140 (136-145) meq/L Potassium 4.1 (3.5-5.1) meq/L Chloride 104 (98-107) meq/L Carbon Dioxide 28.1 (21.0-32.0) meq/L Anion Gap 8 (5-15) meq/L BUN 17 (7-18) mg/dL Creatinine 1.02 H (0.50-1.00) mg/dL Estimated GFR 52 L (>89) mL/min Random Glucose 95 (74-106) mg/dL Calcium 8.5 (8.5-10.1) mg/dL Total Bilirubin 0.5 (0.2-1.0) mg/dL AST 21 (15-37) U/L ALT 19 (10-53) U/L Alkaline Phosphatase 79 (45-117) U/L Troponin I 0.06 H (0.02-0.05) ng/mL Total Protein 7.6 (6.4-8.2) g/dL Albumin 3.8 (3.4-5.0) g/dL Imaging Data Attestation: I personally reviewed and interpreted this imaging study as follows : Radiologist's impression: Chest X-Ray 07/01/18 02:36 CONCLUSION: No acute cardiopulmonary disease demonstrated. ECG Data EKG Prior to Arrival: No Attestation: I personally reviewed and interpreted this ECG as follows: (EKG has a normal sinus rhythm with 3. She has some mild ST segment elevation in 3 and aVF. She has T-wave inversion in 1, aVL and V5 and V6. She had some nonspecific STT wave changes in V1 through V4. However, all of these findings are unchanged from previous.) Prior ECG tracings: available for review Discharge Plan Discharge Disposition Patient Disposition: 30 Still Patient Discharge Details Diagnosis: Chest pain Physicians Team ED Provider: Barbara Mendoza Primary Care Provider: Primary Care Jasmina Rainey Rxs /Orders / Referrals /Forms Prescriptions: No Action Unable to Obtain Home Meds RF: 0 Discharge Instructions Patient Printed Instructions: Chest Pain (ED) Status ED Status: With Doctor
[2018-07-01 03:34] LABS: Alkaline Phosphatase 79 U/L (45-117); Total Protein 7.6 g/dL (6.4-8.2); Troponin I 0.06 ng/mL (0.02-0.05)
[2018-07-01 03:37] LABS: Alanine Aminotransferase 19 U/L (10-53); Albumin 3.8 g/dL (3.4-5.0); Anion Gap 8 meq/L (5-15); Aspartate Aminotransferase 21 U/L (15-37); Blood Urea Nitrogen 17 mg/dL (7-18); Calcium 8.5 mg/dL (8.5-10.1); Carbon Dioxide 28.1 meq/L (21.0-32.0); Chloride 104 meq/L (98-107); Glomerular Filtration Rate 52 mL/min (>89); Glucose,Random 95 mg/dL (74-106); Potassium 4.1 meq/L (3.5-5.1); Sodium 140 meq/L (136-145)
[2018-07-01] MEDS ORDERED: Acetaminophen 325 MG Tablet PO PRN (04:28)
[2018-07-01] MEDS ORDERED: Bisacodyl 10 MG Supp RECTAL PRN (04:28)
--- NOTE | 2018-07-01 04:45 | P.HP ---
History of Present Illness Service: [facility] [place] Primary Care Physician: No Primary Care Physician History of Present Illness: 82-year-old female with a past medical history significant for coronary artery disease, hypertension, history of breast cancer, hyperlipidemia presents to the emergency department for evaluation of chest pain. The patient reports that around midnight last night she was awoken with substernal chest pressure and shortness of breath. She states she felt as though she could not get air. It was partially relieved with p.o. nitroglycerin in the home however once the pain returned she came to the emergency department for further evaluation. Her troponin is elevated at 0.06 which is her baseline. Her last catheterization was approximately 1 year ago which showed coronary artery disease. She is status post stent placement to the LAD. A nitro patch was placed in her chest pain has since resolved. Her shortness of breath has also resolved. No abdominal pain. No nausea/vomiting/diarrhea. No fever/chills. No lateralizing signs/symptoms. Review of Systems All other systems reviewed negative except as stated in HPI [facility] - History History Provided By: Patient - Medical History Medical History: Medical History (Last Reviewed 07/01/18 @ 04:40 by Vanessa Maldonado MD) COPD (chronic obstructive pulmonary disease) GERD (gastroesophageal reflux disease) Heart attack High cholesterol Hypertension - Surgical History Surgical History: Surgical History (Last Reviewed 07/01/18 @ 04:40 by Vanessa Maldonado MD) History of cardiac catheterization History of lumpectomy of left breast Stented coronary artery - Family History Family History: Family History (Last Updated 07/01/18 @ 04:40 by Vanessa Maldonado MD) Other Family history normal - Tobacco History Second Hand Smoke Exposure: No Smoking Status: Never smoker - Alcohol History How Often Do You Have a Drink Containing Alcohol: Never - Substance Use History Substance History: No History of Abuse - Travel History Recent Travel in the [place] Within the Last 8 Weeks: No Recent Travel Out of the Country Within the Last 8 Weeks: No - Immunization History Tetanus Immunization: Unsure Hx Influenza Vaccine This Season: No Medications and Allergies Active Medications: Active Medications Acetaminophen (Tylenol) 650 mg PO Q4H PRN PRN Reason: Temp > 100.4 Al Hydroxide/Mg Hydroxide (Milk Of Magnesia Liq) 30 ml PO Q12H PRN PRN Reason: Mild Constipation Bisacodyl (Dulcolax Supp) 10 mg RECTAL DAILY PRN PRN Reason: SEVERE CONSITIPATION Heparin Sodium (Porcine) (Heparin Inj) 5,000 units SQ Q8H ANH Lactulose (Lactulose Liq) 30 ml PO DAILY PRN PRN Reason: SEVERE CONSITIPATION Ondansetron HCl (Zofran Inj) 4 mg IV.PUSH Q6H PRN PRN Reason: NAUSEA OR VOMITING Senna/Docusate Sodium (Dayana-Colace) 1 tab PO BID ANH Sennosides (Senokot) 17.2 mg PO Q12H PRN PRN Reason: Moderate Constipation Sodium Chloride (Ns Flush) 2 ml IV.FLUSH UNSCH PRN PRN Reason: FLUSH AFTER USING IV ACCESS Allergies Allergy/AdvReac Type Severity Reaction Status Date / Time lisinopril Allergy Mild COUGH Unverified 07/01/18 02:23 Home Medications Medication Instructions Recorded Confirmed Type Unable to Obtain Home Meds 07/01/18 07/01/18 History Exam Vital signs: Vital Signs 07/01/18 02:23 07/01/18 04:00 Temperature 98 F Pulse Rate 73 69 Respiratory Rate 16 18 Blood Pressure 186/86 H 142/66 H Pulse Oximetry 97 97 Intake & Output 06/30/18 06/30/18 07/01/18 06:59 18:59 06:59 Weight 85.729 kg Narrative: Gen.: No acute distress Head: Normocephalic. Atraumatic. EENT: Pupils equal round and reactive to light. Nose without drainage. Airway intact. Throat without injection. Cardiovascular: Regular rate and rhythm. No murmurs, rubs or gallops. Respiratory: Lungs clear to auscultation bilaterally. No wheezes or rhonchi. Abdomen: Soft, nontender, nondistended. No peritoneal signs. Musculoskeletal: No gross deformities. No edema. Skin: No obvious rashes or erythema. Neuro: Sensory and motor grossly intact. Cranial nerves II through XII grossly intact. Results - Labs CBC & Chem 7: 07/01/18 02:15 07/01/18 02:15 Labs: Laboratory Results - last 24 hr 07/01/18 07/01/18 02:15 02:15 WBC 6.9 RBC 4.21 Hgb 13.3 Hct 39.0 MCV 92.6 MCH 31.5 MCHC 34.0 RDW 13.2 Plt Count 221 MPV 8.3 Neut % (Auto) 53.5 Lymph % (Auto) 27.7 [place] % (Auto) 10.9 H Eos % (Auto) 7.0 H Baso % (Auto) 0.9 Neut # (Auto) 3.7 Lymph # (Auto) 1.9 [place] # (Auto) 0.7 Eos # (Auto) 0.5 H Baso # (Auto) 0.1 WBC Differential . Differential Comment Auto diff final Sodium 140 Potassium 4.1 Chloride 104 Carbon Dioxide 28.1 Anion Gap 8 BUN 17 Creatinine 1.02 H Estimated GFR 52 L Random Glucose 95 Calcium 8.5 Total Bilirubin 0.5 AST 21 ALT 19 Alkaline Phosphatase 79 Troponin I 0.06 H Total Protein 7.6 Albumin 3.8 - Imaging Impressions Chest X-Ray 07/01/18 02:36 CONCLUSION: No acute cardiopulmonary disease demonstrated. Caprini VTE Risk Assessment Caprini VTE Risk Assessment: Moderate/High Risk (score >= 2) Caprini Risk Assessment Model: Point Value = 1 Point Value = 2 Point Value = 3 Point Value = 5 Age 41-60 Minor surgery BMI > 25 kg/m2 Swollen legs Varicose veins or History of unexplained or recurrent spontaneous Oral contraceptives or hormone replacement Sepsis (< 1 month) Serious lung disease, including pneumonia (< 1 month) Abnormal pulmonary function Acute myocardial infarction Congestive heart failure (< 1 month) History of inflammatory bowel disease Medical patient at bed rest Age 61-74 Arthroscopic surgery Major open surgery (> 45 min) Laparoscopic surgery (> 45 min) Malignancy Confined to bed (> 72 hours) Immobilizing plaster cast Central venous access Age >= 75 History of VTE Family history of VTE Factor V Leiden Prothrombin [id number] Lupus anticoagulant Anticardiolipin antibodies Elevated serum homocysteine Heparin-induced thrombocytopenia Other congenital or acquired thrombophilia Stroke (< 1 month) Elective arthroplasty Hip, pelvis, or leg fracture Acute spinal cord injury (< 1 month) Prophylaxis Regimen: Total Risk Factor Score Risk Level Prophylaxis Regimen 0-1 Low Early ambulation 2 Moderate Order ONE of the following: *Sequential Compression Device (SCD) *Heparin 5000 units SQ BID 3-4 Higher Order ONE of the following medications: *Heparin 5000 units SQ TID *Enoxaparin/Lovenox 40 mg SQ daily (WT < 150 kg, CrCl > 30 mL/min) *Enoxaparin/Lovenox 30 mg SQ daily (WT < 150 kg, CrCl > 10-29 mL/min) *Enoxaparin/Lovenox 30 mg SQ BID (WT < 150 kg, CrCl > 30 mL/min) AND/OR *Sequential Compression Device (SCD) 5 or more Highest Order ONE of the following medications: *Heparin 5000 units SQ TID (Preferred with Epidurals) *Enoxaparin/Lovenox 40 mg SQ daily (WT < 150 kg, CrCl > 30 mL/min) *Enoxaparin/Lovenox 30 mg SQ daily (WT < 150 kg, CrCl > 10-29 mL/min) *Enoxaparin/Lovenox 30 mg SQ BID (WT < 150 kg, CrCl > 30 mL/min) AND *Sequential Compression Device (SCD) Assessment and Plan - Plan Assessment/plan: 1. Chest pain/elevated troponin/CAD Initial troponin 0.06, baseline for the patient EKG significant for ST segment elevation in leads III and aVF with T-wave inversions in 1, aVL, V5 and V6. Nonspecific ST-T wave changes in V1 through V4. These findings are unchanged from previous. Patient's formulation scientist, Dr. tracey consulted, appreciate recommendations Last cardiac catheterization was February 2017 which revealed moderate coronary artery disease. Medical management was recommended. Serial troponins/EKGs 2. Hypertension/hyperlipidemia Continue home medications once obtained 3. COPD Duo nebs as needed FEN N.p.o. Electrolytes: Monitor and replete as needed Heparin
[2018-07-01] MEDS: Heparin - SQ 10,000 UNITS/ML Vial SQ SCH ×2 (06:19→16:33)
[2018-07-01 08:25] VITALS: RESP 16; O2SAT 98
[2018-07-01] MEDS ORDERED: Senna/Docusate Sodium 8.6/50 MG Tablet PO SCH (09:00)
--- NOTE | 2018-07-01 10:01 | P.PN ---
Subjective Interval history: Patient doing well overnight, reports continued chest pain that has not resolved but is mild. Patient states that the pain is similar to her previous HI. She reports the pain feels like pressure that improved with pain medication. Physical Exam Vital signs: Vital Signs 07/01/18 02:23 07/01/18 02:36 07/01/18 04:00 Temperature 98 F Pulse Rate 73 73 69 Respiratory Rate 16 18 Blood Pressure 186/86 H 142/66 H Pulse Oximetry 97 97 07/01/18 04:49 07/01/18 05:21 07/01/18 08:00 Temperature 98.4 F 97.6 F Pulse Rate 69 73 Respiratory Rate 16 17 16 Blood Pressure 144/79 H 155/72 H Pulse Oximetry 95 98 Intake & Output 06/30/18 07/01/18 07/01/18 18:59 06:59 18:59 Intake Total 0 / 0 Output Total 0 / 0 Balance 0 / 0 Weight 85.729 kg Intake: Oral 0 / 0 Output: Urine 0 / 0 Other: Date of Last Bowel Movement 06/29/18 Weight On Admission 85.729 kg Narrative: GENERAL: well nourished female, in NAD, lying comfortably in bed SKIN: Warm and dry. HEAD: Normocephalic. EYES: No scleral icterus. No injection or drainage. NECK: Supple, trachea midline. No JVD or lymphadenopathy. CARDIOVASCULAR: Regular rate and rhythm without murmurs, gallops, or rubs. RESPIRATORY: Breath sounds equal bilaterally. No accessory muscle use. GASTROINTESTINAL: Abdomen soft, non-tender, nondistended. MUSCULOSKELETAL: No cyanosis, or edema. BACK: Nontender without obvious deformity. No CVA tenderness. Results - Labs CBC & Chem 7: 07/01/18 02:15 07/01/18 02:15 Laboratory Results - last 24 hr 07/01/18 07/01/18 07/01/18 02:15 02:15 05:30 WBC 6.9 RBC 4.21 Hgb 13.3 Hct 39.0 MCV 92.6 MCH 31.5 MCHC 34.0 RDW 13.2 Plt Count 221 MPV 8.3 Neut % (Auto) 53.5 Lymph % (Auto) 27.7 [place] % (Auto) 10.9 H Eos % (Auto) 7.0 H Baso % (Auto) 0.9 Neut # (Auto) 3.7 Lymph # (Auto) 1.9 [place] # (Auto) 0.7 Eos # (Auto) 0.5 H Baso # (Auto) 0.1 WBC Differential . Differential Comment Auto diff final Sodium 140 Potassium 4.1 Chloride 104 Carbon Dioxide 28.1 Anion Gap 8 BUN 17 Creatinine 1.02 H Estimated GFR 52 L Random Glucose 95 Calcium 8.5 Total Bilirubin 0.5 AST 21 ALT 19 Alkaline Phosphatase 79 Troponin I 0.06 H 0.06 H Total Protein 7.6 Albumin 3.8 - Imaging Impressions Chest X-Ray 07/01/18 02:36 CONCLUSION: No acute cardiopulmonary disease demonstrated. Assessment and Plan - Assessment (1) Chest pain Code(s): R07.9 - Chest pain, unspecified Status: Acute - Plan 82 y/o CF with PMHx of CAD s/p stent, HTN, and HLD admitted for IP mgmt of Chest pain , HD#1 1. Chest pain, Hx of CAD Troponin 0.06 x2, baseline for the patient, pending 3rd troponin EKG significant for ST segment elevation in leads III and aVF with T-wave inversions in 1, aVL, V5 and V6. Nonspecific ST-T wave changes in V1 through V4. These findings are unchanged from previous. Patient's high school foreign language teacher, Dr. Granados consulted on admission, appreciate recommendations Last cardiac catheterization 02/14/2017 which revealed moderate coronary artery disease. Medical management was recommended. Cont. Morphine, O2 as needed, Nitro PRN, Coreg, and ASA 81mg QD 2. Hypertension/Hyperlipidemia Continue home medications once obtained, patient unsure of meds at this time 3. COPD Duonebs PRN 4. DVT PPX: Heparin (1) Chest pain Qualifiers: Chest pain type: unspecified Qualified Code(s): R07.9 - Chest pain, unspecified
[2018-07-01 11:16] LABS: Troponin I 0.05 ng/mL (0.02-0.05)
[2018-07-01] MEDS ORDERED: Spironolactone 25 MG Tablet PO SCH (12:30)
[2018-07-01] MEDS ORDERED: hydroCHLOROthiazide 25 MG Tablet PO SCH (12:30)
[2018-07-01] MEDS ORDERED: Metoprolol Tartrate 50 MG Tablet PO SCH (12:30)
[2018-07-01] MEDS ORDERED: Isosorbide Mononitrate 60 MG ER 24HR Tablet (Imdur) PO SCH (12:30)
--- NOTE | 2018-07-01 15:42 | P.CONCA ---
History of Present Illness Service: Cardiology Consult date: 07/01/18 Requesting Physician: Vanessa Maldonado Reason for Consult: Chest pain and elevated troponin Primary Care Provider: No Primary Care Physician Family Provider: No Primary Care Physician History of Present Illness: This is a very pleasant 82-year-old female with a past medical history of coronary artery disease, hypertension, history of breast cancer, hyperlipidemia and coronary stent to the LAD who presented to the emergency department with complaints of chest pain and shortness of breath. She stated that the pain started around midnight last night along with shortness of breath. She describes the pain as a midsternal pressure, she took nitro sublingual at home and says it was partially relieved. The chest pain did return so she decided to seek further evaluation in the emergency department. Her troponin is currently elevated at 0.06 but is not trending. She had a cardiac catheterization approximately 1 year ago which showed coronary artery disease. She currently denies any chest pain, pressure, palpitations, dizziness , edema or shortness of breath at this time. Review of Systems All other systems reviewed negative except as stated in HPI [facility] - History History Provided By: Patient - Medical History Medical History: Medical History (Last Reviewed 07/01/18 @ 04:40 by Vanessa Maldonado MD) COPD (chronic obstructive pulmonary disease) GERD (gastroesophageal reflux disease) Heart attack High cholesterol Hypertension - Surgical History Surgical History: Surgical History (Last Reviewed 07/01/18 @ 04:40 by Vanessa Maldonado MD) History of cardiac catheterization History of lumpectomy of left breast Stented coronary artery - Family History Family History: Family History (Last Updated 07/01/18 @ 04:40 by Vanessa Maldonado MD) Other Family history normal - Tobacco History Second Hand Smoke Exposure: No Smoking Status: Never smoker - Alcohol History How Often Do You Have a Drink Containing Alcohol: Never - Substance Use History Substance History: No History of Abuse - Travel History Recent Travel in the [place] Within the Last 8 Weeks: No Recent Travel Out of the Country Within the Last 8 Weeks: No - Immunization History Tetanus Immunization: Unsure Hx Influenza Vaccine This Season: No Medications and Allergies Allergies Allergy/AdvReac Type Severity Reaction Status Date / Time lisinopril Allergy Mild COUGH Verified 07/01/18 05:18 Home Medications Medication Instructions Recorded Confirmed Type aspirin [Ecotrin Low Strength] 81 mg PO DAILY 07/01/18 07/01/18 History atorvastatin 80 mg PO DAILY 07/01/18 07/01/18 History hydrochlorothiazide 25 mg PO DAILY 07/01/18 07/01/18 History isosorbide mononitrate 60 mg PO DAILY 07/01/18 07/01/18 History losartan 50 mg PO DAILY 07/01/18 07/01/18 History metoprolol tartrate 50 mg PO BID 07/01/18 07/01/18 History nitroglycerin 0.4 mg SUBLINGUAL Q5-15M PRN 07/01/18 07/01/18 History spironolactone 25 mg PO BID 07/01/18 07/01/18 History Active Medications: Active Medications Acetaminophen (Tylenol) 650 mg PO Q4H PRN PRN Reason: Temp > 100.4 Al Hydroxide/Mg Hydroxide (Milk Of Magnesia Liq) 30 ml PO Q12H PRN PRN Reason: Mild Constipation Albuterol (Duoneb Neb (Prn)) 1 ampul NEB Q4HR NEB PRN PRN Reason: sob/wheezing Aspirin (Ecotrin) 81 mg PO DAILY [facility] Last Admin: 07/01/18 12:02 Dose: 81 mg Atorvastatin Calcium (Lipitor) 80 mg PO DAILY [facility] Last Admin: 07/01/18 14:03 Dose: 80 mg Bisacodyl (Dulcolax Supp) 10 mg RECTAL DAILY PRN PRN Reason: SEVERE CONSITIPATION Heparin Sodium (Porcine) (Heparin Inj) 5,000 units SQ Q8H [facility] Last Admin: 07/01/18 06:19 Dose: 5,000 units Hydrochlorothiazide (Hydrodiuril) 25 mg PO DAILY [facility] Last Admin: 07/01/18 14:03 Dose: 25 mg Isosorbide Mononitrate (Imdur) 60 mg PO DAILY [facility] Last Admin: 07/01/18 14:03 Dose: 60 mg Lactulose (Lactulose Liq) 30 ml PO DAILY PRN PRN Reason: SEVERE CONSITIPATION Losartan Potassium (Cozaar) 50 mg PO DAILY [facility] Metoprolol Tartrate (Lopressor) 50 mg PO BID [facility] Last Admin: 07/01/18 12:45 Dose: Not Given Ondansetron HCl (Zofran Inj) 4 mg IV.PUSH Q6H PRN PRN Reason: NAUSEA OR VOMITING Senna/Docusate Sodium (Dayana-Colace) 1 tab PO BID [facility] Last Admin: 07/01/18 09:21 Dose: 1 tab Sennosides (Senokot) 17.2 mg PO Q12H PRN PRN Reason: Moderate Constipation Sodium Chloride (Ns Flush) 2 ml IV.FLUSH UNSCH PRN PRN Reason: FLUSH AFTER USING IV ACCESS Spironolactone (Aldactone) 25 mg PO BID [facility] Last Admin: 07/01/18 14:05 Dose: 25 mg Exam Vital signs: Vital Signs 07/01/18 02:23 07/01/18 02:36 07/01/18 04:00 Temperature 98 F Pulse Rate 73 73 69 Respiratory Rate 16 18 Blood Pressure 186/86 H 142/66 H Pulse Oximetry 97 97 07/01/18 04:49 07/01/18 05:21 07/01/18 08:00 Temperature 98.4 F 97.6 F Pulse Rate 69 73 Respiratory Rate 16 17 16 Blood Pressure 144/79 H 155/72 H Pulse Oximetry 95 98 07/01/18 12:00 Temperature 97.7 F Pulse Rate 72 Respiratory Rate 16 Blood Pressure 147/74 H Pulse Oximetry 98 Intake & Output 06/30/18 07/01/18 07/01/18 18:59 06:59 18:59 Intake Total 0 / 0 Output Total 0 / 0 Balance 0 / 0 Weight 85.729 kg Intake: Oral 0 / 0 Output: Urine 0 / 0 Other: Date of Last Bowel Movement 06/29/18 Weight On Admission 85.729 kg - Constitutional no acute distress - Routine HEENT Exam Head: Present: normocephalic Eye: Present: PERRL ENT: Present: mucous membranes moist - Routine Neck Exam Present: full ROM - Routine Respiratory Exam Present: CTA bilaterally - Routine Cardiovascular Exam Present: S1, S2. Absent: murmur, gallop, rubs - Routine Abdominal Exam Present: normoactive bowel sounds - Routine Extremities Exam Present: full ROM, pulses intact, normal capillary refill. Absent: cyanosis, clubbing, edema - Routine Skin Exam Present: intact - Routine Neurological Exam Present: oriented X3 Results 07/01/18 02:15 07/01/18 02:15 Cardiac Enzymes 09/21/18 09/21/18 09/21/18 Range/Units 02:15 05:30 10:10 AST 21 (15-37) U/L Troponin I 0.06 H 0.06 H 0.05 (0.02-0.05) ng/mL CBC 07/01/18 Range/Units 02:15 WBC 6.9 (4.0-11.0) th/mm3 RBC 4.21 (4.00-5.30) mil/mm3 Hgb 13.3 (11.6-15.3) gm/dL Hct 39.0 (35.0-46.0) % Plt Count 221 (150-450) th/mm3 Neut # (Auto) 3.7 (1.8-7.7) th/mm3 Lymph # (Auto) 1.9 (1.0-4.8) th/mm3 [place] # (Auto) 0.7 (0.0-0.9) th/mm3 Eos # (Auto) 0.5 H (0.0-0.4) th/mm3 Baso # (Auto) 0.1 (0.0-0.2) th/mm3 Comprehensive Metabolic Panel 07/01/18 Range/Units 02:15 Sodium 140 (136-145) meq/L Potassium 4.1 (3.5-5.1) meq/L Chloride 104 (98-107) meq/L Carbon Dioxide 28.1 (21.0-32.0) meq/L BUN 17 (7-18) mg/dL Creatinine 1.02 H (0.50-1.00) mg/dL Calcium 8.5 (8.5-10.1) mg/dL AST 21 (15-37) U/L ALT 19 (10-53) U/L Alkaline Phosphatase 79 (45-117) U/L Total Protein 7.6 (6.4-8.2) g/dL Albumin 3.8 (3.4-5.0) g/dL Intake and Output 07/01/18 07/01/18 07/01/18 06:59 14:59 22:59 Intake Total 0 / 0 Output Total 0 / 0 Balance 0 / 0 Intake: Oral 0 / 0 Output: Urine 0 / 0 Other: Date of Last Bowel Movement 06/29/18 Weight 85.729 kg Weight On Admission 85.729 kg - Imaging and Cardiology Imaging: Impressions Chest X-Ray 07/01/18 02:36 CONCLUSION: No acute cardiopulmonary disease demonstrated. Assessment and Plan - Assessment (1) COPD (chronic obstructive pulmonary disease) Code(s): J44.9 - Chronic obstructive pulmonary disease, unspecified Status: Acute (2) History of heart attack Code(s): I25.2 - Old myocardial infarction Status: Acute (3) Hypertension Code(s): I10 - Essential (primary) hypertension Status: Acute (4) Chest pain Code(s): R07.9 - Chest pain, unspecified Status: Acute - Plan No recurrent angina. Continue current antianginal management with beta kaylan and nitrates. We will add Plavix 75 mg daily. Continue antihypertensive management. She can be discharged home if she remains stable. We will follow her during her hospitalization and also see her back in our office after discharge. The patient was seen and evaluated by Dr. Elizabeth who participated in care, management and decision-making. - Attending Attestation Patient seen and examined. I reviewed and agree with the evaluation and plan as presented. No recurrent angina. Add clopidogrel. Continue antianginal therapy. Will schedule f/u in our office shortly after discharge. (4) Chest pain Qualifiers: Chest pain type: unspecified Qualified Code(s): R07.9 - Chest pain, unspecified
[2018-07-01 16:53] VITALS: BP 145/75; PULSE 75; TEMP 97.6
--- NOTE | 2018-07-02 01:02 | ECG ---
Date Performed: 07/01/2018 Time Performed: 05:24:00 PTAGE: 82 years EKG: Sinus rhythm PROBABLE INFERIOR MYOCARDIAL INFARCTION MODERATE T-WAVE ABNORMALITY, CONSIDER ANTEROLATERAL ISCHEMIA ABNORMAL ECG PREVIOUS TRACING : 07/01/2018 02.26 Since the previous tracing, no significant change noted DOCTOR: Fermin Ascencio Interpretating Date/Time 07/02/2018 01:01:29
--- NOTE | 2018-07-02 12:56 | ECG ---
Date Performed: 07/01/2018 Time Performed: 02:26:14 PTAGE: 82 years EKG: Sinus rhythm POSSIBLE INFERIOR MYOCARDIAL INFARCTION MODERATE T-WAVE ABNORMALITY, CONSIDER ANTEROLATERAL ISCHEMIA ABNORMAL ECG PREVIOUS TRACING : 11/23/2017 23.41 Since the previous tracing, no significant change noted DOCTOR: Fermin Ascencio Interpretating Date/Time 07/02/2018 12:54:52
== END 2018-07-01 17:24 | disposition home or self-care (01) ==
LOC: NEPE 02:17 → NEDA 02:17 → NEPHCDU 04:54
PROVIDERS: ADMIT Family Medicine; ATTEND Family Medicine

== ENCOUNTER 2018-10-21 00:05 | Observation (INO) ==
--- NOTE | 2018-10-21 01:19 | ED ---
HPI General Chief complaint: Chest Pain Stated complaint: Chest Pain Time Seen by Provider: 10/21/18 00:45 Source: patient Mode of arrival: ambulatory Limitations: no limitations History of Present Illness HPI narrative: 83yo F with PMH of CAD s/p stent, COPD, HTN here with c/o chest tightness that started around 10pm. Said it woke her up from sleep, is nonradiating and associated with sob. Pt's commissioned security officer is Dr. Elizabeth and last stress test was about a year ago. Denies any fever, cough, n/v, abdominal pain, focal weakness or numbness. Related Data Home Medications Medication Instructions Recorded Confirmed aspirin [Ecotrin Low Strength] 81 mg PO DAILY 07/01/18 10/21/18 atorvastatin 80 mg PO DAILY 07/01/18 10/21/18 hydrochlorothiazide 25 mg PO DAILY 07/01/18 10/21/18 losartan 50 mg PO DAILY 07/01/18 10/21/18 nitroglycerin 0.4 mg SUBLINGUAL Q5-15M PRN 07/01/18 10/21/18 spironolactone 25 mg PO BID 07/01/18 10/21/18 Previous Rx's Medication Instructions Recorded clopidogrel [Plavix] 75 mg PO DAILY #30 tab 07/01/18 ezetimibe [Zetia] 10 mg PO DAILY #30 tab 10/21/18 isosorbide mononitrate 120 mg PO DAILY@0700 #60 tab 10/21/18 metoprolol tartrate 75 mg PO BID #90 tab 10/21/18 Allergies Allergy/AdvReac Type Severity Reaction Status Date / Time lisinopril Allergy Mild COUGH Verified 07/01/18 05:18 Review of Systems ROS: all other systems reviewed are negative [facility] Social History Social History Substance History: No History of Abuse Second Hand Smoke Exposure: No Smoking Status: Former smoker How Often Do You Have a Drink Containing Alcohol: Never Recent Travel in [facility] within the Last 8 Weeks: No Recent Out of Country Travel within the Last 8 Weeks: No Immunization History Tetanus Immunization: <5 Years Exam Narrative Exam Narrative: GENERAL: 83yo F in mild distress. SKIN: Focused skin assessment warm/dry. HEAD: Atraumatic. Normocephalic. EYES: Pupils equal and round. No scleral icterus. No injection or drainage. ENT: No nasal bleeding or discharge. Mucous membranes pink and moist. NECK: Trachea midline. No JVD. CARDIOVASCULAR: Regular rate and rhythm. No murmur appreciated. RESPIRATORY: No accessory muscle use. Clear to auscultation. Breath sounds equal bilaterally. GASTROINTESTINAL: Abdomen soft, non-tender, nondistended. MUSCULOSKELETAL: No obvious deformities. No clubbing. No cyanosis. No edema. NEUROLOGICAL: Awake and alert. No obvious cranial nerve deficits. Motor grossly within normal limits. Normal speech. PSYCHIATRIC: Appropriate mood and affect; insight and judgment normal. Course Initial Documented Vital Signs Temperature 97.2 F L 10/21/18 00:09 Pulse Rate 81 10/21/18 00:09 Respiratory Rate 16 10/21/18 00:09 Blood Pressure 157/97 H 10/21/18 00:09 Pulse Oximetry 98 10/21/18 00:09 Last Documented Vital Signs Temperature 97.9 F 10/21/18 08:58 Pulse Rate 59 L 10/21/18 15:00 Respiratory Rate 18 10/21/18 08:58 Blood Pressure 171/89 H 10/21/18 08:58 Pulse Oximetry 99 10/21/18 08:58 Medical Decision Making MDM Narrative Medical decision making narrative: 83yo F here with chest pain that woke her up from sleep. She does have CAD and stent before. EKG is concerning for ischemia but unchanged from prior. Labs reviewed, no leukocytosis. H/H normal. Troponin mildly elevated at 0.08, which is similar to her baseline. CXR showed no acute cardiopulmonary disease. Medical Screen Exam Complete: Yes Emergency Medical Condition: Yes Differential Diagnosis Differential Diagnosis: ACS vs. GERD vs. pneumonia Lab Data Result diagrams: 10/21/18 01:00 10/21/18 01:00 Lab Results 10/21/18 10/21/18 10/21/18 Range/Units 01:00 01:00 01:00 WBC 7.6 (4.0-11.0) th/mm3 RBC 4.07 (4.00-5.30) mil/mm3 Hgb 12.7 (11.6-15.3) gm/dL Hct 37.8 (35.0-46.0) % MCV 93.1 (80.0-100.0) fL MCH 31.1 (27.0-34.0) pg MCHC 33.5 (32.0-36.0) % RDW 14.1 (11.6-17.2) % Plt Count 193 (150-450) th/mm3 MPV 8.3 (7.0-11.0) fL Neut % (Auto) 59.3 (16.0-70.0) % Lymph % (Auto) 26.4 (9.0-44.0) % Desha % (Auto) 8.2 H (0.0-8.0) % Eos % (Auto) 5.0 H (0.0-4.0) % Baso % (Auto) 1.1 (0.0-2.0) % Neut # (Auto) 4.5 (1.8-7.7) th/mm3 Lymph # (Auto) 2.0 (1.0-4.8) th/mm3 Desha # (Auto) 0.6 (0.0-0.9) th/mm3 Eos # (Auto) 0.4 (0.0-0.4) th/mm3 Baso # (Auto) 0.1 (0.0-0.2) th/mm3 WBC Differential . Differential Comment Auto diff final PT 10.2 (9.8-11.6) sec INR 1.0 Ratio APTT 26.1 (23.4-31.7) sec Sodium 141 (136-145) meq/L Potassium 3.7 (3.5-5.1) meq/L Chloride 107 (98-107) meq/L Carbon Dioxide 28.4 (21.0-32.0) meq/L Anion Gap 6 (5-15) meq/L BUN 25 H (7-18) mg/dL Creatinine 0.97 (0.50-1.00) mg/dL Estimated GFR 55 L (>89) mL/min Random Glucose 113 H (74-106) mg/dL Hemoglobin A1c (4.3-6.0) % Calcium 8.4 L (8.5-10.1) mg/dL Total Creatine Kinase (26-192) U/L Troponin I 0.08 H (0.02-0.05) ng/mL Triglycerides (42-150) mg/dL Cholesterol (120-200) mg/dL LDL Cholesterol, Calc (0-99) mg/dL HDL Cholesterol (40.0-60.0) mg/dL Cholesterol/HDL Ratio Ratio 10/21/18 10/21/18 10/21/18 Range/Units 01:00 07:58 07:58 WBC (4.0-11.0) th/mm3 RBC (4.00-5.30) mil/mm3 Hgb (11.6-15.3) gm/dL Hct (35.0-46.0) % MCV (80.0-100.0) fL MCH (27.0-34.0) pg MCHC (32.0-36.0) % RDW (11.6-17.2) % Plt Count (150-450) th/mm3 MPV (7.0-11.0) fL Neut % (Auto) (16.0-70.0) % Lymph % (Auto) (9.0-44.0) % Desha % (Auto) (0.0-8.0) % Eos % (Auto) (0.0-4.0) % Baso % (Auto) (0.0-2.0) % Neut # (Auto) (1.8-7.7) th/mm3 Lymph # (Auto) (1.0-4.8) th/mm3 Desha # (Auto) (0.0-0.9) th/mm3 Eos # (Auto) (0.0-0.4) th/mm3 Baso # (Auto) (0.0-0.2) th/mm3 WBC Differential Differential Comment PT (9.8-11.6) sec INR Ratio APTT (23.4-31.7) sec Sodium (136-145) meq/L Potassium (3.5-5.1) meq/L Chloride (98-107) meq/L Carbon Dioxide (21.0-32.0) meq/L Anion Gap (5-15) meq/L BUN (7-18) mg/dL Creatinine (0.50-1.00) mg/dL Estimated GFR (>89) mL/min Random Glucose (74-106) mg/dL Hemoglobin A1c 5.4 (4.3-6.0) % Calcium (8.5-10.1) mg/dL Total Creatine Kinase 143 (26-192) U/L Troponin I 0.06 H (0.02-0.05) ng/mL Triglycerides 89 (42-150) mg/dL Cholesterol 127 (120-200) mg/dL LDL Cholesterol, Calc 59 (0-99) mg/dL HDL Cholesterol 49.9 (40.0-60.0) mg/dL Cholesterol/HDL Ratio 2.54 Ratio ECG Data EKG Prior to Arrival: No Attestation: I personally reviewed and interpreted this ECG as follows: Interpretation: NSR 76bpm. Moraima axis. TWI I, aVL, V2, V4-V6. This is similar to her previous EKG on 07/01/18. No significant ST elevation Discharge Plan Discharge Disposition Patient Disposition: ED Admit(ED Internal Use Only) Discharge Condition Condition: Stable Discharge Order Discharge Orders: Discharge Order (Routine); Ordered 10/21/18 Ordered By: Kelvin Calderon ED Use Only Admit Order (Routine); Ordered 10/21/18 Ordered By: Katherin Díaz Discharge Details Discharge Comment: dc after post cath check with improved BP < 160/90 Diagnosis: Chest pain Physicians Team ED Provider: Katherin Díaz Primary Care Provider: UNKNOWN, Attending Provider: Kelvin Calderon Other Providers: [facility],Insurance ; Nai Elizabeth Status ED Status: Left Department Discharge Information Discharge Date/Time: 10/21/18 05:44
[2018-10-21 01:30] LABS: Baso # (Auto) 0.1 th/mm3 (0.0-0.2); Baso % (Auto) 1.1 % (0.0-2.0); Calcium 8.4 mg/dL (8.5-10.1); Carbon Dioxide 28.4 meq/L (21.0-32.0); Eos # (Auto) 0.4 th/mm3 (0.0-0.4); Hematocrit 37.8 % (35.0-46.0); Hemoglobin 12.7 gm/dL (11.6-15.3); Lymph % (Auto) 26.4 % (9.0-44.0); Mean Corpuscular HGB Conc 33.5 % (32.0-36.0); Mean Corpuscular Hemoglobin 31.1 pg (27.0-34.0); Mean Corpuscular Volume 93.1 fL (80.0-100.0); Mean Platelet Volume 8.3 fL (7.0-11.0); Mono # (Auto) 0.6 th/mm3 (0.0-0.9); Mono % (Auto) 8.2 % (0.0-8.0); Neut # (Auto) 4.5 th/mm3 (1.8-7.7); Neut % (Auto) 59.3 % (16.0-70.0); Platelet Count 193 th/mm3 (150-450); Potassium 3.7 meq/L (3.5-5.1); Red Blood Count 4.07 mil/mm3 (4.00-5.30); Red Cell Distribution Width 14.1 % (11.6-17.2); White Blood Count 7.6 th/mm3 (4.0-11.0)
[2018-10-21 01:34] LABS: Troponin I 0.08 ng/mL (0.02-0.05)
[2018-10-21 01:36] LABS: Activated Partial Thrombo Time 26.1 sec (23.4-31.7); Prothrombin Time 10.2 sec (9.8-11.6)
[2018-10-21] MEDS ORDERED: Aspirin 325 MG Tablet PO ONE (02:32)
[2018-10-21] MEDS ORDERED: Iohexol 350 MG/ML 100 ML Vial (for Cath Lab) IVCONTRAST ONE (02:44)
[2018-10-21] MEDS ORDERED: Bisacodyl 10 MG Supp RECTAL PRN (03:05)
[2018-10-21] MEDS ORDERED: Acetaminophen 325 MG Tablet PO PRN (03:05)
[2018-10-21] MEDS ORDERED: Nitroglycerin SL (Override) 0.4 MG Tab SL PRN (03:14)
--- NOTE | 2018-10-21 03:59 | P.HP ---
History of Present Illness Service: [facility] Primary Care Physician: UNKNOWN History of Present Illness: 83-year-old female past medical history significant for COPD, GERD, coronary artery disease, hypertension and hyperlipidemia presents to the emergency department for the evaluation of chest tightness that awoken her from sleep. The patient reports the pain is a squeezing sensation that is intermittent. She denies any associated shortness of breath. Last cardiac catheterization was approximately 18-month ago which showed coronary artery disease. She is status post stent placement to the LAD. The patient was evaluated for similar symptoms on 07/01/18 where Plavix was added to her medication regimen and she was discharged home. Her mail clerk is Dr. Elizabeth. The patient denies any abdominal pain. No nausea/vomiting/diarrhea. No fever/chills. No focal neurologic deficits. Review of Systems All other systems reviewed negative except as stated in HPI [facility] - History History Provided By: Patient - Medical History Medical History: Medical History (Last Reviewed 10/21/18 @ 03:55 by Vnaessa Maldonado MD) COPD (chronic obstructive pulmonary disease) GERD (gastroesophageal reflux disease) Heart attack High cholesterol Hypertension - Surgical History Surgical History: Surgical History (Last Reviewed 10/21/18 @ 03:55 by Vanessa Maldonado MD) History of cardiac catheterization History of lumpectomy of left breast Stented coronary artery - Family History Family History: Family History (Last Reviewed 10/21/18 @ 03:55 by Vanessa Maldonado MD) Other Family history normal - Tobacco History Second Hand Smoke Exposure: No Smoking Status: Never smoker - Alcohol History How Often Do You Have a Drink Containing Alcohol: Never - Substance Use History Substance History: No History of Abuse - Travel History Recent Travel in the [place] Within the Last 8 Weeks: No Recent Travel Out of the Country Within the Last 8 Weeks: No - Immunization History Tetanus Immunization: <5 Years Medications and Allergies Active Medications: Active Medications Acetaminophen (Tylenol) 650 mg PO Q4H PRN PRN Reason: Temp > 100.4 Aspirin (Ecotrin) 81 mg PO DAILY REPLACED BY [facility] Atorvastatin Calcium (Lipitor) 80 mg PO DAILY ANH Bisacodyl (Dulcolax Supp) 10 mg RECTAL DAILY PRN PRN Reason: SEVERE CONSITIPATION Clopidogrel Bisulfate (Plavix) 75 mg PO DAILY REPLACED BY [facility] Hydrochlorothiazide (Hydrodiuril) 25 mg PO DAILY REPLACED BY [facility] Isosorbide Mononitrate (Imdur) 60 mg PO DAILY@0700 REPLACED BY [facility] Losartan Potassium (Cozaar) 50 mg PO DAILY REPLACED BY [facility] Metoprolol Tartrate (Lopressor) 50 mg PO BID REPLACED BY [facility] Nitroglycerin (Nitrostat Sl) 0.4 mg SL Q5M PRN PRN Reason: CHEST PAIN Last Admin: 10/21/18 02:56 Dose: 0.4 mg Nitroglycerin (Nitrostat Sl (Override)) 0.4 mg SL Q5M PRN PRN Reason: Chest Pain Ondansetron HCl (Zofran Inj) 4 mg IV.PUSH Q6H PRN PRN Reason: NAUSEA OR VOMITING Sennosides (Senokot) 17.2 mg PO Q12H PRN PRN Reason: Moderate Constipation Sodium Chloride (Ns Flush) 2 ml IV.FLUSH BID REPLACED BY [facility] Sodium Chloride (Ns Flush) 2 ml IV.FLUSH PRN PRN PRN Reason: FLUSH AFTER USING IV ACCESS Spironolactone (Aldactone) 25 mg PO BID REPLACED BY [facility] Allergies Allergy/AdvReac Type Severity Reaction Status Date / Time lisinopril Allergy Mild COUGH Verified 07/01/18 05:18 Home Medications Medication Instructions Recorded Confirmed Type aspirin [Ecotrin Low Strength] 81 mg PO DAILY 07/01/18 10/21/18 History atorvastatin 80 mg PO DAILY 07/01/18 10/21/18 History hydrochlorothiazide 25 mg PO DAILY 07/01/18 10/21/18 History isosorbide mononitrate 60 mg PO DAILY 07/01/18 10/21/18 History losartan 50 mg PO DAILY 07/01/18 10/21/18 History metoprolol tartrate 50 mg PO BID 07/01/18 10/21/18 History nitroglycerin 0.4 mg SUBLINGUAL Q5-15M PRN 07/01/18 10/21/18 History spironolactone 25 mg PO BID 07/01/18 10/21/18 History Exam Vital signs: Vital Signs 10/21/18 00:09 10/21/18 02:31 10/21/18 03:01 Temperature 97.2 F L Pulse Rate 81 78 75 Respiratory Rate 16 20 22 Blood Pressure 157/97 H 181/85 H 169/77 H Pulse Oximetry 98 97 97 Intake & Output 10/20/18 10/20/1810/21/19 06:59 18:59 06:59 Weight 87 kg Narrative: Gen.: No acute distress Head: Normocephalic. Atraumatic. EENT: Pupils equal round and reactive to light. Nose without drainage. Airway intact. Throat without injection. Cardiovascular: Regular rate and rhythm. No murmurs, rubs or gallops. Respiratory: Lungs clear to auscultation bilaterally. No wheezes or rhonchi. Abdomen: Soft, nontender, nondistended. No peritoneal signs. Musculoskeletal: No gross deformities. No edema. Skin: No obvious rashes or erythema. Neuro: Sensory and motor grossly intact. Cranial nerves II through XII grossly intact. Results - Labs CBC & Chem 7: 10/21/18 01:00 10/21/18 01:00 Labs: Laboratory Results - last 24 hr 10/21/18 10/21/18 10/21/18 01:00 01:00 01:00 WBC 7.6 RBC 4.07 Hgb 12.7 Hct 37.8 MCV 93.1 MCH 31.1 MCHC 33.5 RDW 14.1 Plt Count 193 MPV 8.3 Neut % (Auto) 59.3 Lymph % (Auto) 26.4 [place] % (Auto) 8.2 H Eos % (Auto) 5.0 H Baso % (Auto) 1.1 Neut # (Auto) 4.5 Lymph # (Auto) 2.0 [place] # (Auto) 0.6 Eos # (Auto) 0.4 Baso # (Auto) 0.1 WBC Differential . Differential Comment Auto diff final PT 10.2 INR 1.0 APTT 26.1 Sodium 141 Potassium 3.7 Chloride 107 Carbon Dioxide 28.4 Anion Gap 6 BUN 25 H Creatinine 0.97 Estimated GFR 55 L Random Glucose 113 H Calcium 8.4 L Troponin I 0.08 H Caprini VTE Risk Assessment Caprini VTE Risk Assessment: Moderate/High Risk (score >= 2) Caprini Risk Assessment Model: Point Value = 1 Point Value = 2 Point Value = 3 Point Value = 5 Age 41-60 Minor surgery BMI > 25 kg/m2 Swollen legs Varicose veins or History of unexplained or recurrent spontaneous Oral contraceptives or hormone replacement Sepsis (< 1 month) Serious lung disease, including pneumonia (< 1 month) Abnormal pulmonary function Acute myocardial infarction Congestive heart failure (< 1 month) History of inflammatory bowel disease Medical patient at bed rest Age 61-74 Arthroscopic surgery Major open surgery (> 45 min) Laparoscopic surgery (> 45 min) Malignancy Confined to bed (> 72 hours) Immobilizing plaster cast Central venous access Age >= 75 History of VTE Family history of VTE Factor V Leiden Prothrombin [id number] Lupus anticoagulant Anticardiolipin antibodies Elevated serum homocysteine Heparin-induced thrombocytopenia Other congenital or acquired thrombophilia Stroke (< 1 month) Elective arthroplasty Hip, pelvis, or leg fracture Acute spinal cord injury (< 1 month) Prophylaxis Regimen: Total Risk Factor Score Risk Level Prophylaxis Regimen 0-1 Low Early ambulation 2 Moderate Order ONE of the following: *Sequential Compression Device (SCD) *Heparin 5000 units SQ BID 3-4 Higher Order ONE of the following medications: *Heparin 5000 units SQ TID *Enoxaparin/Lovenox 40 mg SQ daily (WT < 150 kg, CrCl > 30 mL/min) *Enoxaparin/Lovenox 30 mg SQ daily (WT < 150 kg, CrCl > 10-29 mL/min) *Enoxaparin/Lovenox 30 mg SQ BID (WT < 150 kg, CrCl > 30 mL/min) AND/OR *Sequential Compression Device (SCD) 5 or more Highest Order ONE of the following medications: *Heparin 5000 units SQ TID (Preferred with Epidurals) *Enoxaparin/Lovenox 40 mg SQ daily (WT < 150 kg, CrCl > 30 mL/min) *Enoxaparin/Lovenox 30 mg SQ daily (WT < 150 kg, CrCl > 10-29 mL/min) *Enoxaparin/Lovenox 30 mg SQ BID (WT < 150 kg, CrCl > 30 mL/min) AND *Sequential Compression Device (SCD) Assessment and Plan - Plan Assessment/plan: 1. Chest pain/tightness Initial troponin 0.08, baseline for the patient EKG shows T wave inversions in leads II, aVL, V2, V4 through V6 which is unchanged from her previous EKG on 07/01/18 ACS rule out pending; serial troponins/EKGs 2. Hypertension/hyperlipidemia Continue home medications once obtained 3. COPD Duo nebs as needed FEN N.p.o. Electrolytes: Monitor and replete as needed Heparin
[2018-10-21] MEDS ORDERED: Isosorbide Mononitrate 60 MG ER 24HR Tablet (Imdur) PO SCH (07:00)
--- NOTE | 2018-10-21 08:03 | ECG ---
Date Performed: 10/21/2018 Time Performed: 00:28:12 PTAGE: 83 years EKG: Sinus rhythm PROBABLE INFERIOR MYOCARDIAL INFARCTION Possible anteroseptal DC Nonspecific T wave changes ABNORMAL ECG No significant change from prior electrocardiogram. PREVIOUS TRACING : 07/01/2018 05.24 DOCTOR: Rafael Palacios Interpretating Date/Time 10/21/2018 08:01:36
[2018-10-21] MEDS ORDERED: Metoprolol Tartrate 50 MG Tablet PO SCH (09:00)
[2018-10-21] MEDS ORDERED: hydroCHLOROthiazide 25 MG Tablet PO SCH (09:00)
[2018-10-21] MEDS ORDERED: Spironolactone 25 MG Tablet PO SCH (09:00)
--- NOTE | 2018-10-21 09:01 | P.PNIM ---
Subjective Interval history: Follow-up chest pain. Patient denies chest pain. Seen prior to cath. Discussed with cardiology after cardiac catheterization, no intervention but medication adjustment warranted patient can be discharged later today after post cath check Physical Exam Vital signs: Vital Signs 10/21/18 00:09 10/21/18 02:31 10/21/18 03:01 Temperature 97.2 F L Pulse Rate 81 78 75 Respiratory Rate 16 20 22 Blood Pressure 157/97 H 181/85 H 169/77 H Pulse Oximetry 98 97 97 10/21/18 05:14 10/21/18 06:14 Temperature 97.4 F L Pulse Rate 69 71 Respiratory Rate 18 Blood Pressure 154/83 H Pulse Oximetry 98 Intake & Output 10/20/18 10/21/18 10/21/18 18:59 06:59 18:59 Weight 88 kg Narrative: GENERAL: Well-developed and well-nourished in no distress SKIN: Warm and dry. CARDIOVASCULAR: Regular rate and rhythm. RESPIRATORY: No accessory muscle use. Clear to auscultation. Breath sounds equal bilaterally. GASTROINTESTINAL: Abdomen soft, non-tender, nondistended. MUSCULOSKELETAL: Extremities without clubbing, cyanosis, or edema. No obvious deformities. NEUROLOGICAL: Awake and alert. No obvious cranial nerve deficits. Motor grossly within normal limits. Five out of 5 muscle strength in the arms and legs. Normal speech. PSYCHIATRIC: Appropriate mood and affect; insight and judgment normal. Results Labs CBC & Chem 7: 10/21/18 01:00 10/21/18 01:00 Procedures Procedures: Cardiac catheterization Assessment and Plan Plan 1. Chest pain/tightness. She is pain-free. Cardiac catheterization showed right coronary artery disease with patent stent in the LAD. Recommended medical management. Lopressor and isosorbide increased and started on Zetia continue aspirin, Plavix and Lipitor 2. Hypertension/hyperlipidemia Continue home medications 3. COPD Duo nebs as needed DVT prophylaxis with SCD and early ambulation Discharge patient to home Condition on discharge: Improved Regular Diet as tolerated Ad Julia activity Rx written: Zetia, isosorbide and Lopressor Follow-up with primary care physician and cardiology
[2018-10-21 09:37] LABS: Troponin I 0.06 ng/mL (0.02-0.05)
[2018-10-21] MEDS ORDERED: fentaNYL Citrate Inj 100 MCG/2 ML Ampul ONE (11:24)
--- NOTE | 2018-10-21 11:25 | MB ---
cc: Nai Elizabeth MD DATE: 10/21/2018 HISTORY OF PRESENT ILLNESS: The patient is an 83-year-old white female with a history of coronary artery disease, LAD stenting, COPD, hypertension, and dyslipidemia. She was woken up by substernal chest pressure last night. Chest pressure was intermittent. She still has mild chest discomfort at this time. She has previous history of LAD stenting in 05/2016 using a 2.5 x 14 mm Integrity stent. Her last cardiac catheterization in 02/2017 showed a patent stent in the LAD, 30% mid LAD stenosis, 60% stenosis of the ostium of the first diagonal artery and patent circumflex and codominant right coronary artery. Left ventricular function was 60%. PAST MEDICAL HISTORY: Positive for coronary artery disease as above, COPD, gastroesophageal reflux disease, dyslipidemia, hypertension, history of breast lumpectomy. MEDICATIONS AT HOME: 1. Aspirin. 2. Atorvastatin. 3. Plavix. 4. Hydrochlorothiazide. 5. Isosorbide. 6. Losartan. 7. Metoprolol. 8. Nitroglycerin p.r.n. 9. Spironolactone. ALLERGIES: LISINOPRIL WHICH CAUSED COUGH. SOCIAL HISTORY: The patient used to smoke in the past. She does not drink alcohol. FAMILY HISTORY: Negative for heart disease. REVIEW OF SYSTEMS: Otherwise negative. PHYSICAL EXAMINATION: VITAL SIGNS: Blood pressure 171/89, pulse 70 and regular. HEENT: Negative. 2+ carotid upstrokes, no bruits. LUNGS: Clear. HEART: Regular with no murmur, rub, or gallop. ABDOMEN: Soft. No bruits. EXTREMITIES: Trace edema, 1+ pulses. NEUROLOGIC: Grossly nonfocal. STUDIES: EKG was reviewed and showed normal sinus rhythm, small inferior Q-waves and deep anterior T-wave inversions with delayed R-wave progression of precordial leads. LABORATORY DATA: Hemoglobin 12.7. Potassium 3.7, creatinine 1. Troponin 0.08 and 0.06. DIAGNOSES: 1. Unstable angina. 2. Coronary artery disease. 3. History of LAD stenting. 4. Hypertension. 5. Dyslipidemia. 6. COPD. DISPOSITION: The patient will be scheduled for cardiac catheterization and coronary intervention if necessary. She understands risks and benefits and wishes to proceed. We will continue aggressive modification of her cardiac risk factors. This discussed with the patient and her daughter and they understand the plan. MD JOSE Malcolm/adria , 11:05 AM , 11:15 AM KELLEN
--- NOTE | 2018-10-21 12:16 | CATHPROC ---
[employer] HIS Report Study Information Study Number Admission Scheduled Start Study Start [id number] Oct 21 2018 2:43AM 10/21/2018 Oct 21 2018 11:11AM [place] [facility]iac Catheterization Admit Source Facility Department Other [facility] - Certified Prosthetist Physician and Clinical Staff Initial Nai Bee Control Clerk [employer] Meena Menard RN Recorder Celina Mejia RN, Dan, RN Scrub Giselle Mcghee,RT(R) Procedures Performed Procedure Location (Site) Vessel Name Angiogram LV LV Ventricle Coronary Angiograms LCA Left Coronary Coronary Angiograms RCA Right Coronary L Heart Cath Wire insertion Fem Art (right) Femoral Art Equipment Time Workforce Development Assistant Description Size Mfg Part Number Used/Scraped TRANSDUCER, TRUSGI MedicalAVE [id number] 11:26 Wine Ring CHATTERJEE * Used W/STOCKCOCK *[id number] [id number] 12:06 [employer] VASCADE, FR5 CLOSURE SYSTEM FR 5 Used *[id number] 534-548T *[id number] 534-520T *[id number] 534-552S *[id number] 11:26 [employer] BLANKET,WARM AIR CCL * Used *[id number] 11:26 [employer] PACK, CCL CUSTOM * Used *[id number] 11:26 [employer] PACER PEN, SKIN DUAL W/ RULER * Used *[id number] 11:26 [employer] WIRE, 3MMJ .035 180CM 180CM Used *[id number] PROBE COVER, STERILE [id number] 11:26 So [employer] Me MEDICAL * Used ULTRASOUND W/ GEL *[id number] 11:26 NAMIC MANIFOLD, 4 PORT * Used *[id number] 11:26 NAMIC TUBING, HIGH PRESSURE 48" 48" Used *[id number] 11:26 [employer] OMNIPAQUE, 350 MG, 150ML 150ML [id number] Used [id number] 11:26 [employer] MEDICAL SHEATH, FR5 TERUMO (10CM) FR 5 Used *[id number] History: Current Medications Medication Dosage/Unit Route Frequency Last Date/Time Taken Statins (any) ASA PLAVIX History: Allergies Allergy Reaction lisinopril COUGH History: Risk Factors Family History of Hypertension Dyslipidemia Previous NH Previous Heart Failure Premature CAD Yes Yes No Yes No Prior Valve Prior PCI Prior PCIDate Prior CABG Surgery No Yes 10/11/2017 No Cerebrovascular Peripheral Artery Chronic Lung On Dialysis Diabetes Disease Disease Disease No No No Yes No History: Other Current Smoker No Labs Hgb (g/dl) Hct (%) WBC (l/cumm) Platelets (thousands) 11.60-17.00 35.00-51.00 4.00-11.00 150.00-450.00 12.7 67.8 7.6 193 Glucose (mg/dl) BUN (mg/dl) Creatinine (mg/dl) BUN:Creatinine (1:x) 74.00-106.00 7.00-18.00 0.50-1.30 10.00-20.00 113 25 0.9 27.8 Na (meq/l) K (meq/l) 136.00-145.00 3.50-5.10 141 3.7 INR (PTT:PT) 0.90-1.10 1 Troponin I (ng/ml) 0.02-0.05 0.06 Medication Medication Total Dose (Bolus/Oral) Medication Total Dosage/Unit 1% XYLOCAINE 8 mL FENTANYL 25 mcg OXYGEN 3 l/min VERSED 2 mg Medications (Bolus/Oral) Medication Time Given Dosage/Unit Administered By Reason VERSED 10/21/2018 11:28:24 AM 1 mg Meena Menard 1 mg VERSED given in lab by Meena Menard RN in Right Antecubital via Peripheral IV. Ordered by Nai Melgar. FENTANYL 10/21/2018 11:29:31 AM 25 mcg Meena Menard 25 mcg FENTANYL given in lab by Meena Menard RN in Right Antecubital via Peripheral IV. Ordered b y Nai Elizabeth. OXYGEN 10/21/2018 11:34:26 AM 3 l/min Meena Menard 3 l/min OXYGEN given in lab by Meena Menard RN via Nasal. Ordered by Nai Elizabeth. VERSED 10/21/2018 11:40:39 AM 1 mg Meena Menard 1 mg VERSED given in lab by Meena Menard RN in Right Antecubital via Peripheral IV. Ordered by Nai Melgar. 1% XYLOCAINE 10/21/2018 11:48:44 AM 8 mL Nai Elizabeth 8 mL 1% XYLOCAINE given in lab by Nai Elizabeth in Right Groin via Subcutaneous. Ordered by Nai Elizabeth. Medication (Drip) Medication Time Given Dosage/Unit Concentration/Unit Diluent (ml) Solution IV Solutions 10/21/2018 11:10:50 AM 0 mL (IV) NaCl .9 IV Solutions given in lab by Meena Menard, ALEXIS via Peripheral IV. Pump/Drip Flow = 30 ml/hr using N aCl .9. Ordered by Nai Elizabeth. Reason: As per physicians verbal order. Initial Case Assessment Cardiovascular HR NIBP Chest Pain 66 153/88 0 Edema Present Skin color Skin Mild Normal Warm Dry Circulatory - Right Pulses Dorsalis Pedis Femoral 1 1 Scale (0,1,2,3,4,d) Circulatory - Left Pulses Dorsalis Pedis Femoral 1 1 Scale (0,1,2,3,4,d) Neurological State Oriented to time-place- Alert Moves all extremities person Respiration - General Respiration Rate SpO2 (%) (B/min) 18 96 Final Case Assessment Cardiovascular HR NIBP Chest Pain 67 142/85 0 Edema Present Skin color Skin Mild Normal Warm Dry Circulatory - Right Pulses Dorsalis Pedis Femoral 1 1 Scale (0,1,2,3,4,d) Circulatory - Left Pulses Dorsalis Pedis Femoral 1 1 Scale (0,1,2,3,4,d) Neurological State Oriented to time-place- Alert Moves all extremities person Respiration - General Respiration Rate SpO2 (%) (B/min) 13 99 Chronological Log Time Study Chronological Log 11:10:42 Patient arrived via Bed. 11:10:43 Patient Name, D.O.B, / Armband Verified By R.N. 11:10:44 Consent signed by the physician and the patient and verified by the Certified Prosthetist staff. 11:10:44 Pre-op and post- op instructions given; patient acknowledges understanding of instructions. 11:10:45 Verbal Stimulation=2 Physical Stimulation=2 Airway=2 Respiration=2 TOTAL=8. (0=absent, 1=li mited, 2=present) 11:10:46 Patient has been NPO for Less than 6Hrs. 11:10:47 Skin Breakdown- scabs left arm. 11:10:49 A # 20 IV was noted in the Antecubital (right). Grade = 0 IV Solutions given in lab by Meena Menard, ALEXIS via Peripheral IV. Pump/Drip Flow = 30 ml/hr u sing NaCl .9. Ordered 11:10:50 by Nai Elizabeth. Reason: As per physicians verbal order. 11:10:51 History and physical on the chart or being dictated. Assessment: Initial Case, HR=66 BPM, BJRP=547/88 mmhg, Chest Pain=0, Edema=Mild, Color=Normal, Skin = Warm, Dry Right Pulses: Bonifacio Ped=1, Femoral=1 11:10:52 Left Pulses: Bonifacio Ped=1, Femoral=1 Neurological: State=Alert, Ox3, DENNY Respiration: Resp=18 B/min, SpO2=96 % Vitals capture started with the following parameters, Patient=Adult, Interval=5 min, Initial Pr itbmmm=220 mmHg, 11:18:38 Deflation Rate=5 mmHg, Cuff placed on Left Arm 11:19:18 HR=65 bpm, CCHQ=020/88 mmhg, SpO2=97.0 %, Resp=17 B/min, Pain=0, Francisco=10, Grant=2 11:20:20 Reference ECG taken 11:21:42 Patient Warmer Placed on the Table. 11:21:48 Paige Prominences Protected 11:21:50 A # 20 IV was noted in the Antecubital (right). Grade = 0 11:24:19 HR=65 bpm, EJCV=148/81 mmhg, SpO2=97.0 %, Resp=19 B/min, Pain=0, Francisco=10, Grant=2 11:28:24 1 mg VERSED given in lab by Meena Menard, ALEXIS in Right Antecubital via Peripheral IV. Ord ered by Nai Elizabeth. 11:29:18 HR=61 bpm, FCHL=786/89 mmhg, SpO2=97.0 %, Resp=10 B/min, Pain=0, Francisco=10, Grant=2 25 mcg FENTANYL given in lab by Meena Menard, ALEXIS in Right Antecubital via Peripheral IV. Ord ered by Clara, 11:29:31 Nai. 11:33:17 MD paged 11:33:46 MD responded 11:34:19 HR=66 bpm, WEPW=184/77 mmhg, SpO2=96.0 %, Resp=15 B/min, Pain=0, Francisco=10, Grant=2 11:34:26 3 l/min OXYGEN given in lab by Meena Menard, RN via Nasal. Ordered by Nai Eliazbeth. 11:39:14 HR=64 bpm, OPRM=419/84 mmhg, SpO2=98.0 %, Resp=13 B/min, Pain=0, Francisco=10, Grant=2 11:39:56 Pressure channel 1 zeroed. 11:40:39 1 mg VERSED given in lab by Meena Menard, RN in Right Antecubital via Peripheral IV. Ord ered by Nai Elizabeth. 11:42:02 MD arrived. 11:44:43 HR=65 bpm, AEGJ=477/78 mmhg, SpO2=98.0 %, Resp=15 B/min, Pain=0, Francisco=10, Grant=2 Time Out. Correct patient, correct procedure, correct physician, labs, allergies, and equipment verified with laboratory machinist 11:48:17 team present. Fire risk assesment completed (see hard stop sheet for coding). Time Out Conc urred by MD and individual staff in procedure. 11:48:43 Case Start 11:48:44 8 mL 1% XYLOCAINE given in lab by aNi Elizabeth in Right Groin via Subcutaneous. Ordered by Nai Elizabeth. 11:49:46 Access site was Right Femoral Artery. 11:49:51 HR=65 bpm, COFQ=579/79 mmhg, SpO2=98.0 %, Resp=14 B/min, Pain=0, Francisco=10, Grant=2 11:50:00 A SHEATH, FR5 TERUMO (10CM) FR 5 was advanced into the Fem Art (right) using the Percutaneo us technique. 11:50:37 A WIRE, 3MMJ .035 180CM 180CM was inserted via Fem Art (right). A PIGTAIL ANG. INFINITI CATHETER FR 5 was advanced over a wire. OMNIPAQUE, 350 MG, 150ML 150ML was used 11:50:38 for injections. Recorded Pressure: LV, HR=64, Condition=Condition 1 11:51:34 (Left Ventricle) LV 131/14/19 11:53:04 The LV was injected at 10 cc/sec for a total of 30. OMNIPAQUE, 350 MG, 150ML 150ML used. Recorded Pressure: LV, Ao, HR=74, Condition=Condition 1 11:53:39 (Left Ventricle) LV 111/50/27, (Aorta) Ao 115/60/83 11:54:19 HR=67 bpm, COZI=319/76 mmhg, SpO2=98.0 %, Resp=15 B/min, Pain=0, Francisco=10, Grant=2 11:54:57 Catheter was removed A JL 4.0 INFINITI CATHETER FR 5 was advanced over a wire. OMNIPAQUE, 350 MG, 150ML 150ML was us ed for 11:55:03 injections. Recorded Pressure: Ao, HR=71, Condition=Condition 1 11:55:59 (Aorta) Ao 132/72/99 11:57:16 The LCA was injected and visualized at various angles. OMNIPAQUE, 350 MG, 150ML 150ML used . After removing the current catheter a AR MOD INFINITI CATHETER FR 5 was advanced over a WIRE, 3 MMJ .035 180CM 11:59:23 180CM. 11:59:24 HR=69 bpm, SDWM=992/68 mmhg, SpO2=98.0 %, Resp=13 B/min, Pain=0, Francisco=10, Grant=2 12:00:49 The RCA was injected and visualized at various angles. OMNIPAQUE, 350 MG, 150ML 150ML used . 12:01:08 Case End (Physician broke scrub) 12:01:38 Catheter was removed 12:01:56 Catheter(s) removed without difficulty 12:01:59 No case complications noted. 12:02:18 Cine recording checked. 12:02:28 Bedside Report will be given. 12:02:31 A Left Heart Cath was performed. 12:02:36 An injection in the Fem Art (right) was made through the SHEATH, FR5 TERUMO (10CM) FR 5. 12:04:21 HR=68 bpm, RYHH=357/77 mmhg, SpO2=99.0 %, Resp=13 B/min, Pain=0, Francisco=10, Grant=2 12:07:46 VASCADE, FR5 CLOSURE SYSTEM FR 5 placement in the Fem Art (right) 12:09:20 HR=68 bpm, OFTU=786/85 mmhg, SpO2=99.0 %, Resp=13 B/min, Pain=0, Francisco=10, Grant=2 Assessment: Final Case, HR=67 BPM, CIZT=813/85 mmhg, Chest Pain=0, Edema=Mild, Color=Normal, S kin = Warm, Dry Right Pulses: Bonifacio Ped=1, Femoral=1 12:12:37 Left Pulses: Bonifacio Ped=1, Femoral=1 Neurological: State=Alert, Ox3, [place] Respiration: Resp=13 B/min, SpO2=99 % 12:14:21 HR=67 bpm, WXLG=362/86 mmhg, Resp=13 B/min, Pain=0, Francisco=10, Grant=2 12:15:55 Patient moved to stretcher 12:15:59 Vitals capture stopped. End Study - Contrast Media Used In Study Contrast Total Opened (mL) Total Used (mL) Total Wasted (mL) Omnipaque 80 80 0 End Study - Maximum Contrast Load Max Contrast Load (mL) 488.9 End Study - Radiation Exposure Fluoro Time Fluoro Dose (mGy) Cine Dose (uGym2) (minutes) 1.0 336 4757 End Study - Patient Disposition Complications Transferred To Interventional Outcome No Telemetry Bed No attempt made
--- NOTE | 2018-10-21 12:29 | MR ---
cc: Nai Elizabeth MD DATE: 10/21/2018 INDICATIONS: Unstable angina, coronary artery disease, history of LAD stenting. PROCEDURE PERFORMED: 1. Retrograde left heart catheterization with left ventriculography and selective coronary angiography. 2. Moderate sedation. ACCESS SITE: Right femoral artery. EQUIPMENT USED: A 5-[place] pigtail catheter, 5-[place] JL4 and AR modified coronary catheters. MEDICATIONS: Versed IV, fentanyl IV. CONTRAST: Omnipaque 80 mL. COMPLICATIONS: None. ESTIMATED BLOOD LOSS: Less than 10 mL. METHOD OF HEMOSTASIS: Vascade closure. RESULTS: A. HEMODYNAMICS: Heart rate 68 beats per minute; LV end-diastolic pressure 12 mmHg; left ventricle 120/12 aorta 120/72/99. B. Left ventricular ejection fraction 65%. Wall motion normal. No mitral regurgitation. C. CORONARY ANGIOGRAPHY: Left main coronary artery is patent. Left anterior descending artery has patent stent in the mid portion. There is 60% stenosis before the stent and also 60% stenosis after the stent. The LAD wraps around the apex. First diagonal artery has 60% ostial/proximal stenosis. Circumflex artery is a codominant vessel, which is patent. The first marginal artery patent, second marginal artery patent. Right coronary artery is a codominant vessel, which is patent. DIAGNOSES: 1. Moderate coronary artery disease with patent stent in the mid left anterior descending with sequential 60% stenosis in the mid left anterior descending artery and 60% stenosis of the first diagonal artery. 2. Preserved left ventricular systolic function. DISPOSITION: The patient was found to have evidence of moderate disease in the mid left anterior descending artery. I recommend medical therapy including therapy for angina and aggressive modification of her cardiac risk factors for further management. I will see her back for followup in our office after discharge. MD JOSE Malcolm/emma , 12:11 PM , 12:18 PM KELLEN
[2018-10-21] MEDS ORDERED: Heparin/NS PF Inj 1,000 ML ONE (12:32)
[2018-10-21] MEDS: Metoprolol Tartrate 50 MG Tablet PO SCH ×2 (13:32→18:09)
[2018-10-21 13:38] LABS: Chol/HDL Ratio 2.54 Ratio; HDL Cholesterol 49.9 mg/dL (40.0-60.0)
[2018-10-21] MEDS ORDERED: Ezetimibe 10 MG Tablet PO SCH (14:00)
[2018-10-21] MEDS ORDERED: Famotidine 20 MG Tablet PO SCH (14:00)
--- NOTE | 2018-10-21 14:22 | ECG ---
Date Performed: 10/21/2018 Time Performed: 06:40:06 PTAGE: 83 years EKG: Sinus rhythm Possible inferior infarct - age undetermined Possible LVH with secondary repolarization abnormality Lateral ST-T changes may be due to hypertrophy and/or ischemia Abnormal ECG No significant change fro m prior electrocardiogram. PREVIOUS TRACING : 10/21/2018 00.28 DOCTOR: Rafael Palacios Interpretating Date/Time 10/21/2018 14:21:30
[2018-10-21 17:20] LABS: Hemoglobin A1c 5.4 % (4.3-6.0)
[2018-10-22] MEDS ORDERED: Isosorbide Mononitrate 60 MG ER 24HR Tablet (Imdur) PO SCH (07:00)
[2018-10-22] MEDS ORDERED: Aspirin 325 MG Tablet PO SCH (09:00)
== END 2018-10-21 18:45 | disposition home or self-care (01) ==
LOC: NEDA 00:05 → NEPC 00:05 → HCIS 04:56
PROVIDERS: ADMIT Internal Medicine; ATTEND Internal Medicine
DX: Z79.82 Long term (current) use of aspirin; E78.5 Hyperlipidemia, unspecified; I10 Essential (primary) hypertension; Z95.5 Presence of coronary angioplasty implant and graft; Z79.02 Long term (current) use of antithrombotics/antiplatelets; J44.9 Chronic obstructive pulmonary disease, unspecified; R94.31 Abnormal electrocardiogram [ECG] [EKG]; Z88.8 Allergy status to other drugs, medicaments and biological substances; Z79.899 Other long term (current) drug therapy; K21.9 Gastro-esophageal reflux disease without esophagitis; I25.2 Old myocardial infarction; I25.110 Atherosclerotic heart disease of native coronary artery with unstable angina pectoris; E78.00 Pure hypercholesterolemia, unspecified; Z87.891 Personal history of nicotine dependence
CPT/HCPCS: 80048; 80061; 82550; 83036; 84484; 85025; 85610; 85730; 93005; 93458; 99152; 99153; 99285; C1760; C1769; C1893; G0269; G0378; J1644; J2250; J3010; Q9967